=== PATIENT | male | born 1960 | race Caucasian/White ===

== ENCOUNTER 2018-01-17 07:40 | Inpatient (IN) | payer MEDICAID, OTHER ==
[~2018-01-17] VITALS: Ht 177.8 cm; Wt 87.1 kg
[~2018-01-17 07:40] MED LIST: CLOP75TA35 PO; METO25TA6 PO; NICO-631 TD; ROSU10TA PO
[2018-01-17] MEDS ORDERED: iohexol 350MG/ML 100ml bottle IV ONE (07:58)
[2018-01-17 08:02] LABS: BASOPHILS % (AUTO) 0.2 % (0-1); EOSINOPHILS % (AUTO) 0.2 % (0-6); HEMATOCRIT 33.5 % (42.0-52.0); HEMOGLOBIN 11.6 g/dl (14.0-17.9); LYMPHOCYTES # (AUTO) 1.2 X10'3 (1.1-4.8); LYMPHOCYTES % (AUTO) 10.3 % (21-51); MEAN CORPUSCULAR HEMOGLOBIN 32.4 PG (27.0-31.0); MEAN CORPUSCULAR HGB CONC 34.5 % (33.0-36.5); MEAN CORPUSCULAR VOLUME 93.9 FL (78-98); MEAN PLATELET VOLUME 7.8 FL (7.4-10.4); MONOCYTES # (AUTO) 1.1 X10'3 (0-0.9); MONOCYTES % (AUTO) 9.6 % (2-12); NEUTROPHILS # (AUTO) 9.5 X10'3 (1.8-7.7); NEUTROPHILS % (AUTO) 79.7 % (42-75); PLATELET COUNT 283 X10'3 (140-440); RED BLOOD COUNT 3.57 X10'6 (4.70-6.10); RED CELL DISTRIBUTION WIDTH 13.9 % (11.5-14.5); WHITE BLOOD COUNT 11.9 X10'3 (4.5-11.0)
[2018-01-17 08:15] LABS: ALANINE AMINOTRANSFERASE 268 U/L (12-78); ALBUMIN 3.1 G/DL (3.4-5.0); ALBUMIN/GLOBULIN RATIO 0.8 (1.1-1.5); ALKALINE PHOSPHATASE 77 IU/L (46-116); ASPARTATE AMINO TRANSFERASE 288 U/L (10-37); BILIRUBIN,TOTAL 0.6 MG/DL (0.1-1.0); BLOOD UREA NITROGEN 18 MG/DL (7-18); BUN/CREATININE RATIO 15.5 (5.4-32.0); CALCIUM 9.2 MG/DL (8.5-10.1); CREATININE 1.16 MG/DL (0.60-1.10); GLUCOSE 115 MG/DL (70-104); TOTAL CARBON DIOXIDE 23.8 MMOL/L (24-32); TOTAL PROTEIN 6.9 G/DL (6.4-8.2); eGFR 65 ML/MIN
[2018-01-17 08:19] LABS: ANION GAP 9 (8-16); CHLORIDE 100 MMOL/L (99-107); POTASSIUM 3.9 MMOL/L (3.5-5.1); SODIUM 133 MMOL/L (135-145)
[2018-01-17 08:24] LABS: INR 0.9 INR; PARTIAL THROMBOPLASTIN TIME 25 SECONDS (22-32); PROTHROMBIN TIME 9.4 SECONDS (9.0-12.0)
[2018-01-17] MEDS ORDERED: ondansetron/PF 4mg/2ml inj IV ONE (08:25)
[2018-01-17] MEDS: morphine 4 MG/ML inj SYRINge IV PRN ×2 (08:34→09:09)
[2018-01-17] MEDS ORDERED: CefTRIAXone 2gm/D5W 50ml 50 ML IV ONE (08:40)
[2018-01-17] MEDS ORDERED: NO HOME MEDS (08:41)
[2018-01-17] MEDS ORDERED: rocuronium 10mg/ml inj IV ONE (09:00)
[2018-01-17] MEDS ORDERED: heparin 1,000 units/ml 10ml inj ONE ×2 (09:00→12:05)
[2018-01-17] MEDS ORDERED: papaverine 30 mg/ml 2ml inj. ONE (09:00)
[2018-01-17] MEDS ORDERED: HYDROmorphone 1 mg/ml syringe IV ONE (09:05)
[2018-01-17] MEDS ORDERED: iohexol 350 MG/1 ML 200ml bottle ONE (09:24)
[2018-01-17] MEDS ORDERED: midazolam 2 mg/2 ml injection ONE (09:24)
[2018-01-17] MEDS ORDERED: fentaNYL/PF 50MCG/1 ML 2ML syringe ONE (09:24)
[2018-01-17] MEDS ORDERED: LIDOcaine 1% 30ml preserv. free vial ONE (09:24)
[2018-01-17] MEDS ORDERED: magnesium 1gm/100ml D5W IVPB 100 ML IV PRN ×2 (09:45→19:15)
[2018-01-17] MEDS ORDERED: magnesium Cl slow-release 64mg tablet PO PRN (09:45)
[2018-01-17] MEDS ORDERED: potassium Cl 40MEQ/NS 500ml 500 ML IV PRN ×2 (09:45)
[2018-01-17] MEDS ORDERED: potassium Cl 20 mEq SR tablet PO PRN ×2 (09:45)
[2018-01-17] MEDS ORDERED: morphine 4 MG/ML inj SYRINge IV PRN ×2 (09:45)
[2018-01-17] MEDS ORDERED: magnesium 4gm in 100ml NS 100 ML IV PRN ×2 (09:45→19:15)
[2018-01-17] MEDS ORDERED: ondansetron/PF 4mg/2ml inj IV PRN ×2 (09:45→19:15)
[2018-01-17] MEDS ORDERED: heparin 1,000unit/ml 10ml vial 10 ML ONE (10:11)
[2018-01-17] MEDS ORDERED: verapamil 2.5 mg/ml inj IV ONE (10:11)
[2018-01-17] MEDS ORDERED: nitroGLYCERIN-Tridil 50MG/D5W 250 ML IV ONE (10:11)
[2018-01-17] MEDS ORDERED: tirofiban 5mg in NS 100mL 100 ML IV ONE (10:28)
[2018-01-17] MEDS ORDERED: NORepinephrine 1 mg/ml inj IV ONE (10:52)
[2018-01-17] MEDS ORDERED: vancomycin/NS 1 GM ADD-VANTAGE 250 ML IV ONE (11:20)
[2018-01-17] MEDS ORDERED: cefazolin/dext.iso 2gm/50ml 50 ML IV ONE (11:20)
[2018-01-17 11:21] LABS: ABG BASE EXCESS -7.8 mmol/L (-2.0-3.0); ABG HCO3 15.5 mmol/L (22.0-26.0); ABG OXYGEN SATURATION 97.5 % (95-98); ABG PCO2 (T) 25.6 mmHg (35.0-48.0); ABG PH (T) 7.399 (7.350-7.450); FCOHb 0.8 % (0.5-1.5); FLOW 6 L/min; FMetHb 0.3 % (0.3-1.12); FO2Hb 96.4 % (94-100)
[2018-01-17] MEDS ORDERED: MIDAZolam 1mg/ml 10ml vial ONE (11:50)
[2018-01-17] MEDS ORDERED: SUFENTANIL CITRATE 50 MCG/ML 2ml ampule IV ONE (11:51)
[2018-01-17] MEDS ORDERED: pancuronium br 1mg/ml inj IV ONE ×2 (11:52→18:02)
[2018-01-17] MEDS ORDERED: etomidate 2mg/ml inj. ONE (11:52)
[2018-01-17] MEDS ORDERED: aminocaproic acid 250 MG/1 ML inj. ONE ×2 (12:05)
[2018-01-17] MEDS ORDERED: heparin 10,000 units/1 ML INJ ONE (12:05)
[2018-01-17] MEDS ORDERED: magnesium sulf 1 GM/2 ML ONE (12:05)
[2018-01-17] MEDS ORDERED: protamine sulf. 10mg/ml inj. IV ONE (12:05)
[2018-01-17] MEDS ORDERED: esmolol 10mg/ml inj IV ONE (12:05)
[2018-01-17] MEDS ORDERED: niCARDipine in NS 40mg/200ml (0.2mg/ml) IVPB IV ONE (12:05)
[2018-01-17] MEDS ORDERED: calcium chloride 100 MG/1 ML inj IV ONE (12:05)
[2018-01-17] MEDS ORDERED: NORepinephrine bitartrate 8 MG in NS 250 ML BAG (32 mcg/ml) IV ONE (12:05)
[2018-01-17] MEDS ORDERED: phenylephrine 10mg/ml inj. ONE ×2 (12:05→14:39)
[2018-01-17] MEDS ORDERED: dextrose 50%-water 50ml dispensing syringe IV PRN ×2 (12:05→19:15)
[2018-01-17] MEDS ORDERED: albumin (human) 25% 100 ML IV solution IV ONE (12:05)
[2018-01-17] MEDS ORDERED: sevoflurane 250ml liquid IH ONE (12:05)
[2018-01-17] MEDS ORDERED: INSULIN R 100 UNIT in NS 100ML (1 UNIT/1 ML) BAG IV ONE (12:05)
[2018-01-17] MEDS ORDERED: hydrALAZINE 20mg/ml inj. IV ONE (12:05)
[2018-01-17] MEDS ORDERED: sodium bicarbonate (8.4%) 1 mEq/ml syringe ONE (12:05)
[2018-01-17] MEDS ORDERED: potassium Cl 2 mEq/ml inj IV ONE (12:05)
[2018-01-17] MEDS ORDERED: LIDOcaine 2% (20 mg/ml) 5ml cardiac syringe ONE (12:05)
[2018-01-17 12:56] LABS: ABG BASE EXCESS -7.3 mmol/L (-2.0-3.0); ABG HCO3 19.6 mmol/L (22.0-26.0); ABG OXYGEN SATURATION 99.2 % (95-98); ABG PCO2 45.1 mmHg (35.0-45.0); ABG PH 7.256 (7.350-7.450); ABG PO2 249.8 mmHg (60.0-100.0); CL (ABG) 105 mmol/L (99-107); FCOHb 1.3 % (0.5-1.5); FMetHb 0.2 % (0.3-1.12); FO2Hb 97.7 % (94-100); GLUCOSE (ABG) 143 mg/dl (70-105); IONIZED CA (ABG) 1.14 mmol/L (1.03-1.32); K (ABG) 4.4 mmol/L (3.3-5.1); NA (ABG) 131 mmol/L (135-145); TOTAL HEMOGLOBIN 12.1 G/dl (14.0-18.0)
[2018-01-17] MEDS ORDERED: ceFAZolin 1000mg inj ONE ×3 (13:03→17:47)
[2018-01-17] MEDS ORDERED: albumin (Human) 5% 250ml 250 ML IV ONE (13:27)
[2018-01-17] MEDS ORDERED: papaverine 30 mg/ml 2ml inj. IA ONE (13:48)
[2018-01-17] MEDS ORDERED: heparin 10,000 units/1 ML INJ IR ONE (13:50)
[2018-01-17] MEDS ORDERED: fentaNYL /PF 50mcg/ml 5ml ampule ONE (14:36)
[2018-01-17 14:41] LABS: ABG BASE EXCESS VENOUS -5.2 mmol/L; ABG PCO2 VENOUS 50.3 mmHg; ABG PO2 VENOUS 41.1 mmHg; CL (ABG) 106 mmol/L (99-107); FCOHb VENOUS 1.8 %; FHHb VENOUS 29.5 %; FMetHb VENOUS 0.2 %; FO2Hb VENOUS 68.5 %; GLUCOSE (ABG) 155 mg/dl (70-105); IONIZED CA (ABG) 1.12 mmol/L (1.03-1.32); K (ABG) 4.9 mmol/L (3.3-5.1); NA (ABG) 132 mmol/L (135-145); TOTAL HEMOGLOBIN 11.8 G/dl (14.0-18.0)
[2018-01-17] MEDS ORDERED: esmolol inj. 10 ML IV ONE (15:00)
[2018-01-17 15:16] LABS: ABG BASE EXCESS -2.9 mmol/L (-2.0-3.0); ABG HCO3 23.1 mmol/L (22.0-26.0); ABG OXYGEN SATURATION 99.6 % (95-98); ABG PCO2 46.3 mmHg (35.0-45.0); ABG PH 7.316 (7.350-7.450); ABG PO2 355.9 mmHg (60.0-100.0); CL (ABG) 105 mmol/L (99-107); FCOHb 1.9 % (0.5-1.5); FMetHb 0.4 % (0.3-1.12); FO2Hb 97.3 % (94-100); GLUCOSE (ABG) 131 mg/dl (70-105); IONIZED CA (ABG) 1.01 mmol/L (1.03-1.32); K (ABG) 5.7 mmol/L (3.3-5.1); NA (ABG) 128 mmol/L (135-145); TOTAL HEMOGLOBIN 8.1 G/dl (14.0-18.0)
[2018-01-17 15:31] LABS: ABG BASE EXCESS VENOUS -1.8 mmol/L; ABG HCO3 VENOUS 24.8 mmol/L; ABG PCO2 VENOUS 52.5 mmHg; CL (ABG) 104 mmol/L (99-107); FCOHb VENOUS 1.7 %; FHHb VENOUS 15.1 %; FMetHb VENOUS 0.3 %; FO2Hb VENOUS 82.9 %; GLUCOSE (ABG) 131 mg/dl (70-105); IONIZED CA (ABG) 1.01 mmol/L (1.03-1.32); K (ABG) 5.9 mmol/L (3.3-5.1); NA (ABG) 131 mmol/L (135-145)
[2018-01-17 15:50] LABS: ABG BASE EXCESS -4.6 mmol/L (-2.0-3.0); ABG HCO3 22.4 mmol/L (22.0-26.0); ABG OXYGEN SATURATION 99.4 % (95-98); ABG PCO2 50.3 mmHg (35.0-45.0); ABG PH 7.266 (7.350-7.450); ABG PO2 295.3 mmHg (60.0-100.0); CL (ABG) 103 mmol/L (99-107); FCOHb 1.3 % (0.5-1.5); FMetHb 0.2 % (0.3-1.12); FO2Hb 97.9 % (94-100); GLUCOSE (ABG) 171 mg/dl (70-105); IONIZED CA (ABG) 1.01 mmol/L (1.03-1.32); K (ABG) 5.6 mmol/L (3.3-5.1); NA (ABG) 130 mmol/L (135-145); TOTAL HEMOGLOBIN 9.3 G/dl (14.0-18.0)
[2018-01-17 15:56] LABS: ABG BASE EXCESS -1.8 mmol/L (-2.0-3.0); ABG HCO3 23.9 mmol/L (22.0-26.0); ABG OXYGEN SATURATION 99.3 % (95-98); ABG PCO2 44.5 mmHg (35.0-45.0); ABG PH 7.347 (7.350-7.450); ABG PO2 274.5 mmHg (60.0-100.0); CL (ABG) 101 mmol/L (99-107); FCOHb 1.2 % (0.5-1.5); FMetHb 0.3 % (0.3-1.12); FO2Hb 97.8 % (94-100); GLUCOSE (ABG) 186 mg/dl (70-105); IONIZED CA (ABG) 0.99 mmol/L (1.03-1.32); K (ABG) 5.2 mmol/L (3.3-5.1); NA (ABG) 133 mmol/L (135-145); TOTAL HEMOGLOBIN 9.8 G/dl (14.0-18.0)
[2018-01-17 16:00] LABS: ABG BASE EXCESS 2.9 mmol/L (-2.0-3.0); ABG HCO3 27.6 mmol/L (22.0-26.0); ABG OXYGEN SATURATION 99.3 % (95-98); ABG PCO2 43.3 mmHg (35.0-45.0); ABG PH 7.423 (7.350-7.450); ABG PO2 256.6 mmHg (60.0-100.0); CL (ABG) 100 mmol/L (99-107); FCOHb 1.5 % (0.5-1.5); FMetHb 0.1 % (0.3-1.12); FO2Hb 97.7 % (94-100); GLUCOSE (ABG) 186 mg/dl (70-105); IONIZED CA (ABG) 0.94 mmol/L (1.03-1.32); NA (ABG) 135 mmol/L (135-145); TOTAL HEMOGLOBIN 9.3 G/dl (14.0-18.0)
[2018-01-17 16:15] LABS: ABG BASE EXCESS 0.4 mmol/L (-2.0-3.0); ABG OXYGEN SATURATION 99.4 % (95-98); ABG PCO2 40.1 mmHg (35.0-45.0); ABG PH 7.413 (7.350-7.450); ABG PO2 317.7 mmHg (60.0-100.0); CL (ABG) 102 mmol/L (99-107); FCOHb 1.5 % (0.5-1.5); FMetHb 0.2 % (0.3-1.12); FO2Hb 97.7 % (94-100); GLUCOSE (ABG) 181 mg/dl (70-105); IONIZED CA (ABG) 0.94 mmol/L (1.03-1.32); K (ABG) 5.4 mmol/L (3.3-5.1); NA (ABG) 132 mmol/L (135-145); TOTAL HEMOGLOBIN 9.2 G/dl (14.0-18.0)
[2018-01-17 16:35] LABS: ABG BASE EXCESS -1.6 mmol/L (-2.0-3.0); ABG HCO3 23.2 mmol/L (22.0-26.0); ABG OXYGEN SATURATION 99.4 % (95-98); ABG PCO2 39.2 mmHg (35.0-45.0); ABG PO2 276.5 mmHg (60.0-100.0); CL (ABG) 102 mmol/L (99-107); FCOHb 1.5 % (0.5-1.5); FMetHb 0.2 % (0.3-1.12); FO2Hb 97.7 % (94-100); GLUCOSE (ABG) 183 mg/dl (70-105); IONIZED CA (ABG) 0.99 mmol/L (1.03-1.32); K (ABG) 5.6 mmol/L (3.3-5.1); NA (ABG) 132 mmol/L (135-145); TOTAL HEMOGLOBIN 9.6 G/dl (14.0-18.0)
[2018-01-17 17:10] LABS: ABG BASE EXCESS -2.4 mmol/L (-2.0-3.0); ABG HCO3 22.4 mmol/L (22.0-26.0); ABG OXYGEN SATURATION 99.2 % (95-98); ABG PH 7.378 (7.350-7.450); ABG PO2 242.5 mmHg (60.0-100.0); CL (ABG) 103 mmol/L (99-107); FCOHb 1.5 % (0.5-1.5); FMetHb 0.4 % (0.3-1.12); FO2Hb 97.3 % (94-100); GLUCOSE (ABG) 156 mg/dl (70-105); IONIZED CA (ABG) 1.03 mmol/L (1.03-1.32); K (ABG) 5.3 mmol/L (3.3-5.1); NA (ABG) 133 mmol/L (135-145); TOTAL HEMOGLOBIN 9.6 G/dl (14.0-18.0)
[2018-01-17 17:35] LABS: ABG HCO3 21.1 mmol/L (22.0-26.0); ABG OXYGEN SATURATION 98.5 % (95-98); ABG PCO2 43.4 mmHg (35.0-45.0); ABG PH 7.304 (7.350-7.450); ABG PO2 146.3 mmHg (60.0-100.0); CL (ABG) 103 mmol/L (99-107); FCOHb 1.7 % (0.5-1.5); FMetHb 0.3 % (0.3-1.12); FO2Hb 96.5 % (94-100); GLUCOSE (ABG) 123 mg/dl (70-105); K (ABG) 4.7 mmol/L (3.3-5.1); NA (ABG) 133 mmol/L (135-145); TOTAL HEMOGLOBIN 8.5 G/dl (14.0-18.0)
[2018-01-17 17:50] LABS: ABG BASE EXCESS VENOUS -1.6 mmol/L; ABG HCO3 VENOUS 24.7 mmol/L; ABG PCO2 VENOUS 49.8 mmHg; ABG PO2 VENOUS 37.7 mmHg; CL (ABG) 105 mmol/L (99-107); FCOHb VENOUS 2.1 %; FHHb VENOUS 33.9 %; FMetHb VENOUS 0.4 %; FO2Hb VENOUS 63.6 %; GLUCOSE (ABG) 108 mg/dl (70-105); IONIZED CA (ABG) 1.53 mmol/L (1.03-1.32); K (ABG) 4.2 mmol/L (3.3-5.1); NA (ABG) 135 mmol/L (135-145)
[2018-01-17] MEDS: insulin Lispro (HumaLOG) vial - multi-dose SQ SCH ×2 (18:00→18:15)
[2018-01-17] MEDS ORDERED: sodium bicarbonate 1 MEQ/1 ml inj ONE (18:09)
[2018-01-17] MEDS: insulin regular, human 100 UNIT in normal saline 100ml IV soln 99 ML IV SCH ×2 (18:15)
[2018-01-17 18:21] LABS: ABG BASE EXCESS VENOUS 5.4 mmol/L; ABG HCO3 VENOUS 33.3 mmol/L; ABG PCO2 VENOUS 70.3 mmHg; ABG PO2 VENOUS 40.7 mmHg; CL (ABG) 103 mmol/L (99-107); FCOHb VENOUS 1.3 %; FMetHb VENOUS 0.4 %; FO2Hb VENOUS 63.3 %; GLUCOSE (ABG) 75 mg/dl (70-105); IONIZED CA (ABG) 1.11 mmol/L (1.03-1.32); K (ABG) 3.8 mmol/L (3.3-5.1); NA (ABG) 145 mmol/L (135-145); TOTAL HEMOGLOBIN 9.4 G/dl (14.0-18.0)
[2018-01-17] MEDS ORDERED: niCARDipine/sod cl 20mg/200ml 200 ML IV PRN (19:13)
[2018-01-17] MEDS ORDERED: nitroGLYCERIN-Tridil 50MG/D5W 250 ML IV PRN (19:13)
[2018-01-17] MEDS ORDERED: sodium phosphate inj. 30 MMOL in dextrose 5%-water 250 ML IV PRN (19:15)
[2018-01-17] MEDS ORDERED: metoclopramide 5 mg/ml inj IV PRN (19:15)
[2018-01-17] MEDS ORDERED: magnesium hydroxide 30ml (MOM) UD suspension PO PRN (19:15)
[2018-01-17] MEDS ORDERED: insulin regular, human inj. 100 UNITS in normal saline 100ml IV soln 100 ML IV SCH ×2 (19:15)
[2018-01-17] MEDS ORDERED: sodium phosphate inj. 15 MMOL in dextrose 5%-water 150 ML IV PRN (19:15)
[2018-01-17] MEDS ORDERED: Neutra Phos packet PO PRN (19:15)
[2018-01-17] MEDS ORDERED: normal saline 250ml IV soln 250 ML IV PRN (19:15)
[2018-01-17] MEDS ORDERED: potassium Cl 20mEq/100mL bag 100 ML IV PRN ×3 (19:15)
[2018-01-17 19:30] VITALS: BP 105/45
[2018-01-17 19:30] LABS: BASOPHILS % (AUTO) 0 % (0-1); EOSINOPHILS % (AUTO) 0 % (0-6); HEMATOCRIT 31.6 % (42.0-52.0); HEMOGLOBIN 10.7 g/dl (14.0-17.9); LYMPHOCYTES # (AUTO) 0.8 X10'3 (1.1-4.8); LYMPHOCYTES % (AUTO) 7.2 % (21-51); MEAN CORPUSCULAR HGB CONC 33.8 % (33.0-36.5); MEAN CORPUSCULAR VOLUME 94.7 FL (78-98); MEAN PLATELET VOLUME 7.7 FL (7.4-10.4); MONOCYTES # (AUTO) 0.6 X10'3 (0-0.9); MONOCYTES % (AUTO) 5.6 % (2-12); NEUTROPHILS # (AUTO) 9.4 X10'3 (1.8-7.7); NEUTROPHILS % (AUTO) 87.2 % (42-75); PLATELET COUNT 153 X10'3 (140-440); RED BLOOD COUNT 3.34 X10'6 (4.70-6.10); RED CELL DISTRIBUTION WIDTH 14.7 % (11.5-14.5); WHITE BLOOD COUNT 10.8 X10'3 (4.5-11.0)
[2018-01-17 19:40] VITALS: BP 92/60
[2018-01-17 19:41] LABS: ABG BASE EXCESS -1.3 mmol/L (-2.0-3.0); ABG HCO3 25.4 mmol/L (22.0-26.0); ABG OXYGEN SATURATION 93.2 % (95-98); ABG PCO2 (T) 49.9 mmHg (35.0-48.0); ABG PH (T) 7.321 (7.350-7.450); ABG PO2 (T) 75.6 mmHg (83-108); FCOHb 0.1 % (0.5-1.5); FMetHb 0.1 % (0.3-1.12); MINUTE VOLUME 10 L/min; PATIENT TEMPERATURE 36.3; PEEP 5 cm H2O; RESPIRATORY RATE 14 b/min; RESPIRATORY RATE (OBSERVED) 14 b/min; TIDAL VOLUME 650 mL; TOTAL HEMOGLOBIN 11.3 G/dl (14.0-18.0)
[2018-01-17 19:43] LABS: INR 1.2 INR; PARTIAL THROMBOPLASTIN TIME 33 SECONDS (22-32); PROTHROMBIN TIME 11.9 SECONDS (9.0-12.0)
[2018-01-17 19:46] LABS: ALANINE AMINOTRANSFERASE 234 U/L (12-78); ALBUMIN 2.9 G/DL (3.4-5.0); ALBUMIN/GLOBULIN RATIO 1.2 (1.1-1.5); ALKALINE PHOSPHATASE 56 IU/L (46-116); ANION GAP 8 (8-16); ASPARTATE AMINO TRANSFERASE 366 U/L (10-37); BILIRUBIN,TOTAL 1.2 MG/DL (0.1-1.0); BLOOD UREA NITROGEN 19 MG/DL (7-18); BUN/CREATININE RATIO 12.3 (5.4-32.0); CALCIUM 8.4 MG/DL (8.5-10.1); CHLORIDE 107 MMOL/L (99-107); CREATININE 1.55 MG/DL (0.60-1.10); MAGNESIUM 3.8 MG/DL (1.5-2.4); PHOSPHORUS 3.2 MG/DL (2.3-4.5); POTASSIUM 3.5 MMOL/L (3.5-5.1); SODIUM 143 MMOL/L (135-145); TOTAL CARBON DIOXIDE 27.6 MMOL/L (24-32); TOTAL PROTEIN 5.4 G/DL (6.4-8.2); eGFR 46 ML/MIN
[2018-01-17] MEDS: albumin (Human) 5% 250ml 250 ML IV PRN ×2 (19:47→21:30)
[2018-01-17] MEDS: sodium chloride 0.45% 1,000 ML IV SCH (19:47)
[2018-01-17 19:49] LABS: GLUCOSE 46 MG/DL (70-104)
[2018-01-17 19:50] VITALS: BP 105/50
[2018-01-17] MEDS ORDERED: propofol 1000mg/100ml bottle 100 ML IV ONE (19:53)
[2018-01-17 20:00] VITALS: BP 99/45
[2018-01-17] MEDS: docusate sod 100mg capsule PO SCH (20:00)
[2018-01-17] MEDS: mupirocin 2% nasal ointment 1gm UD NS SCH (20:00)
[2018-01-17 20:51] LABS: ABG BASE EXCESS -3.1 mmol/L (-2.0-3.0); ABG HCO3 23.2 mmol/L (22.0-26.0); ABG OXYGEN SATURATION 93.1 % (95-98); ABG PCO2 (T) 47.2 mmHg (35.0-48.0); ABG PO2 (T) 77.4 mmHg (83-108); FMetHb 0.3 % (0.3-1.12); FO2Hb 92.8 % (94-100); MINUTE VOLUME 10 L/min; PEEP 5 cm H2O; RESPIRATORY RATE 14 b/min; RESPIRATORY RATE (OBSERVED) 14 b/min; TIDAL VOLUME 650 mL; TOTAL HEMOGLOBIN 10.9 G/dl (14.0-18.0)
[2018-01-17] MEDS: vancomycin/NS 1 GM ADD-VANTAGE 250 ML IV SCH (21:09)
[2018-01-17 22:00] VITALS: BP 99/44
[2018-01-17 23:00] VITALS: BP 110/68
[2018-01-17] MEDS ORDERED: DOPamine 400mg/D5W 250ml 250 ML IV PRN (23:29)
[2018-01-17] MEDS: amiodarone/D5 360MG/200ML BAG 200 ML IV SCH (23:47)
[2018-01-17] MEDS: ceFAZolin 1GM/D5W- ADD-VANTAGE 50 ML IV SCH (23:47)
[2018-01-18] VITALS (30 sets, daily range): BP systolic 60–132; BP diastolic 34–82
[2018-01-18] MEDS: morphine 4 MG/ML inj SYRINge IV PRN ×7 (01:09→22:26)
[2018-01-18] MEDS: insulin regular, human 100 UNIT in normal saline 100ml IV soln 99 ML IV SCH ×4 (01:28→18:27)
[2018-01-18 02:44] LABS: BASOPHILS % (AUTO) 0 % (0-1); EOSINOPHILS % (AUTO) 0 % (0-6); HEMOGLOBIN 10.9 g/dl (14.0-17.9); LYMPHOCYTES # (AUTO) 0.8 X10'3 (1.1-4.8); LYMPHOCYTES % (AUTO) 7.3 % (21-51); MEAN CORPUSCULAR HEMOGLOBIN 31.8 PG (27.0-31.0); MEAN CORPUSCULAR VOLUME 96.1 FL (78-98); MEAN PLATELET VOLUME 8.7 FL (7.4-10.4); MONOCYTES # (AUTO) 0.4 X10'3 (0-0.9); MONOCYTES % (AUTO) 4.2 % (2-12); NEUTROPHILS # (AUTO) 9.2 X10'3 (1.8-7.7); NEUTROPHILS % (AUTO) 88.5 % (42-75); PLATELET COUNT 141 X10'3 (140-440); RED BLOOD COUNT 3.43 X10'6 (4.70-6.10); RED CELL DISTRIBUTION WIDTH 14.4 % (11.5-14.5); WHITE BLOOD COUNT 10.4 X10'3 (4.5-11.0)
[2018-01-18 02:56] LABS: INR 1.2 INR; PARTIAL THROMBOPLASTIN TIME 33 SECONDS (22-32); PROTHROMBIN TIME 12.8 SECONDS (9.0-12.0)
[2018-01-18 03:04] LABS: ALANINE AMINOTRANSFERASE 399 U/L (12-78); ALBUMIN 3.2 G/DL (3.4-5.0); ALBUMIN/GLOBULIN RATIO 1.6 (1.1-1.5); ALKALINE PHOSPHATASE 45 IU/L (46-116); ANION GAP 12 (8-16); ASPARTATE AMINO TRANSFERASE 705 U/L (10-37); BILIRUBIN,TOTAL 1.7 MG/DL (0.1-1.0); BLOOD UREA NITROGEN 27 MG/DL (7-18); BUN/CREATININE RATIO 14.4 (5.4-32.0); CALCIUM 7.3 MG/DL (8.5-10.1); CHLORIDE 108 MMOL/L (99-107); CREATININE 1.88 MG/DL (0.60-1.10); GLUCOSE 151 MG/DL (70-104); MAGNESIUM 2.9 MG/DL (1.5-2.4); PHOSPHORUS 4.7 MG/DL (2.3-4.5); POTASSIUM 5.5 MMOL/L (3.5-5.1); SODIUM 142 MMOL/L (135-145); TOTAL CARBON DIOXIDE 22.2 MMOL/L (24-32); TOTAL PROTEIN 5.2 G/DL (6.4-8.2); eGFR 37 ML/MIN
[2018-01-18 03:25] LABS: ABG BASE EXCESS -5.6 mmol/L (-2.0-3.0); ABG HCO3 20.3 mmol/L (22.0-26.0); ABG PCO2 (T) 41.6 mmHg (35.0-48.0); ABG PH (T) 7.308 (7.350-7.450); ABG PO2 (T) 71.6 mmHg (83-108); FCOHb 0.3 % (0.5-1.5); FMetHb 0.2 % (0.3-1.12); FO2Hb 91.5 % (94-100); PATIENT TEMPERATURE 37.2; PEEP 5 cm H2O; RESPIRATORY RATE 14 b/min; TIDAL VOLUME 650 mL; TOTAL HEMOGLOBIN 12.6 G/dl (14.0-18.0)
[2018-01-18] MEDS: albumin (Human) 5% 250ml 250 ML IV PRN ×3 (03:31→18:13)
[2018-01-18] MEDS: NORepinephrine 8mg/ 250ml NS 250 ML IV PRN ×2 (03:54→17:00)
[2018-01-18 05:27] LABS: ACT @ 1.70 U 281 SEC (193-297); ACT @ 2.84 U 379 SEC (260-420); BASELINE ACT 153 SEC (101-148); PATIENT WEIGHT 80.0k KG
[2018-01-18 05:27] LABS: ACTIVATED CLOTTING TIME 131 SEC (101-148)
[2018-01-18 05:30] LABS: ABG BASE EXCESS -2.8 mmol/L (-2.0-3.0); ABG HCO3 23.5 mmol/L (22.0-26.0); ABG OXYGEN SATURATION 99.6 % (95-98); ABG PH 7.307 (7.350-7.450); CL (ABG) 104 mmol/L (99-107); FCOHb 1.7 % (0.5-1.5); FMetHb 0.3 % (0.3-1.12); FO2Hb 97.6 % (94-100); GLUCOSE (ABG) 133 mg/dl (70-105); K (ABG) 5.9 mmol/L (3.3-5.1); NA (ABG) 129 mmol/L (135-145); TOTAL HEMOGLOBIN 8.1 G/dl (14.0-18.0)
[2018-01-18] MEDS ORDERED: pantoprazole 40mg Tablet.DR PO SCH (07:30)
[2018-01-18] MEDS: metoprolol tartrate 12.5mg (1/2 tablet) PO SCH ×2 (08:00→20:00)
[2018-01-18] MEDS: docusate sod 100mg capsule PO SCH (08:00)
[2018-01-18] MEDS ORDERED: K and/or MAG REPLACEMENT MC SCH (08:00)
[2018-01-18] MEDS: amiodarone/D5 360MG/200ML BAG 200 ML IV SCH ×2 (08:54→19:42)
[2018-01-18] MEDS: ceFAZolin 1GM/D5W- ADD-VANTAGE 50 ML IV SCH ×3 (08:58→23:51)
[2018-01-18] MEDS: atorvastatin 10mg tablet PO SCH (08:58)
[2018-01-18] MEDS: mupirocin 2% nasal ointment 1gm UD NS SCH ×2 (08:59→19:42)
[2018-01-18] MEDS: aspirin 325mg tablet, delayed-release (Ecotrin) PO SCH (08:59)
[2018-01-18] MEDS: vancomycin/NS 1 GM ADD-VANTAGE 250 ML IV SCH ×2 (08:59→19:59)
[2018-01-18] MEDS: DOBUTamine-DoBUTrex 500mg/D5W 250 ML IV SCH ×2 (09:00→19:42)
[2018-01-18] MEDS: insulin Lispro (HumaLOG) vial - multi-dose SQ SCH ×3 (09:00→17:11)
[2018-01-18] MEDS: pantoprazole 40 MG vial IV SCH (10:06)
[2018-01-18 10:35] LABS: ABG BASE EXCESS -10.4 mmol/L (-2.0-3.0); ABG HCO3 14.9 mmol/L (22.0-26.0); ABG OXYGEN SATURATION 92.5 % (95-98); ABG PCO2 (T) 32.2 mmHg (35.0-48.0); ABG PH (T) 7.287 (7.350-7.450); ABG PO2 (T) 79.7 mmHg (83-108); FCOHb 0.3 % (0.5-1.5); FMetHb 0.3 % (0.3-1.12); FO2Hb 91.9 % (94-100); MINUTE VOLUME 11 L/min; PATIENT TEMPERATURE 37.5; PEEP 5 cm H2O; RESPIRATORY RATE 14 b/min; RESPIRATORY RATE (OBSERVED) 16 b/min; TIDAL VOLUME 650 mL; TOTAL HEMOGLOBIN 12.1 G/dl (14.0-18.0)
[2018-01-18] MEDS ORDERED: sodium bicarbonate (8.4%) 1 mEq/ml syringe IV ONE ×2 (10:40→12:55)
[2018-01-18] MEDS ORDERED: sodium bicarbonate (8.4%) 1 mEq/ml syringe ONE (10:40)
[2018-01-18 12:15] LABS: ABG BASE EXCESS -7.1 mmol/L (-2.0-3.0); ABG HCO3 18.2 mmol/L (22.0-26.0); ABG OXYGEN SATURATION 94.3 % (95-98); ABG PCO2 (T) 37.4 mmHg (35.0-48.0); ABG PH (T) 7.309 (7.350-7.450); ABG PO2 (T) 88.1 mmHg (83-108); FCOHb 0.3 % (0.5-1.5); FMetHb 0.4 % (0.3-1.12); FO2Hb 93.6 % (94-100); MINUTE VOLUME 10 L/min; PATIENT TEMPERATURE 37.9; PEEP 5 cm H2O; RESPIRATORY RATE 14 b/min; RESPIRATORY RATE (OBSERVED) 16 b/min; TIDAL VOLUME 600 mL; TOTAL HEMOGLOBIN 11.4 G/dl (14.0-18.0)
[2018-01-18 12:36] LABS: BASOPHILS % (AUTO) 0.1 % (0-1); EOSINOPHILS % (AUTO) 0 % (0-6); HEMATOCRIT 31.7 % (42.0-52.0); HEMOGLOBIN 10.5 g/dl (14.0-17.9); LYMPHOCYTES # (AUTO) 0.9 X10'3 (1.1-4.8); LYMPHOCYTES % (AUTO) 7.9 % (21-51); MEAN CORPUSCULAR HEMOGLOBIN 31.7 PG (27.0-31.0); MEAN CORPUSCULAR HGB CONC 33.1 % (33.0-36.5); MEAN CORPUSCULAR VOLUME 95.7 FL (78-98); MEAN PLATELET VOLUME 9.2 FL (7.4-10.4); MONOCYTES # (AUTO) 1.2 X10'3 (0-0.9); NEUTROPHILS # (AUTO) 9.5 X10'3 (1.8-7.7); PLATELET COUNT 121 X10'3 (140-440); RED BLOOD COUNT 3.32 X10'6 (4.70-6.10); RED CELL DISTRIBUTION WIDTH 14.6 % (11.5-14.5); WHITE BLOOD COUNT 11.6 X10'3 (4.5-11.0)
[2018-01-18 12:59] LABS: ALBUMIN 3.1 G/DL (3.4-5.0); ALBUMIN/GLOBULIN RATIO 1.6 (1.1-1.5); ALKALINE PHOSPHATASE 49 IU/L (46-116); ANION GAP 17 (8-16); BILIRUBIN,TOTAL 2.2 MG/DL (0.1-1.0); BLOOD UREA NITROGEN 40 MG/DL (7-18); BUN/CREATININE RATIO 14.5 (5.4-32.0); CALCIUM 6.8 MG/DL (8.5-10.1); CHLORIDE 108 MMOL/L (99-107); CREATININE 2.75 MG/DL (0.60-1.10); GLUCOSE 132 MG/DL (70-104); MAGNESIUM 2.9 MG/DL (1.5-2.4); PHOSPHORUS 7.5 MG/DL (2.3-4.5); SODIUM 145 MMOL/L (135-145); TOTAL CARBON DIOXIDE 19.6 MMOL/L (24-32); TOTAL PROTEIN 5.1 G/DL (6.4-8.2); eGFR 24 ML/MIN
[2018-01-18 13:02] LABS: ALANINE AMINOTRANSFERASE 1594 U/L (12-78)
[2018-01-18 13:04] LABS: POTASSIUM 6.1 MMOL/L (3.5-5.1)
[2018-01-18 13:18] LABS: ASPARTATE AMINO TRANSFERASE 3482 U/L (10-37)
[2018-01-18] MEDS: propofol 1000mg/100ml bottle 100 ML IV PRN ×2 (13:34→21:50)
[2018-01-18] MEDS ORDERED: rocuronium 10mg/ml inj IV ONE (14:45)
[2018-01-18] MEDS ORDERED: Duosol 4k/NO Calcium 5,000 ML HE SCH (14:52)
[2018-01-18] MEDS ORDERED: sodium phosphate inj. 30 MMOL in normal saline 250ml IV soln 250 ML IV PRN (14:55)
[2018-01-18] MEDS ORDERED: citrate dextrose 1000ml IV sol 1,000 ML IV PRN (14:55)
[2018-01-18] MEDS ORDERED: potassium Cl 20mEq/100mL bag 100 ML IV PRN (14:55)
[2018-01-18] MEDS ORDERED: magnesium 4gm in 100ml NS 100 ML IV PRN (14:55)
[2018-01-18] MEDS ORDERED: calcium chloride inj. 10,000 MG in normal saline 500ml IV soln 400 ML IV PRN (14:55)
[2018-01-18] MEDS: Duosol 4K/3 Ca (w/calcium) 5,000 ML HE SCH ×4 (16:19→23:50)
[2018-01-18] MEDS: DOPamine 400mg/D5W 250ml 250 ML IV PRN (16:51)
[2018-01-18 17:00] LABS: BASOPHILS % (AUTO) 0.2 % (0-1); EOSINOPHILS % (AUTO) 0 % (0-6); HEMOGLOBIN 10.8 g/dl (14.0-17.9); LYMPHOCYTES # (AUTO) 0.7 X10'3 (1.1-4.8); LYMPHOCYTES % (AUTO) 6.4 % (21-51); MEAN CORPUSCULAR HEMOGLOBIN 31.5 PG (27.0-31.0); MEAN CORPUSCULAR HGB CONC 33.8 % (33.0-36.5); MEAN CORPUSCULAR VOLUME 93.1 FL (78-98); MEAN PLATELET VOLUME 9.2 FL (7.4-10.4); MONOCYTES # (AUTO) 0.8 X10'3 (0-0.9); MONOCYTES % (AUTO) 7.6 % (2-12); NEUTROPHILS # (AUTO) 9.5 X10'3 (1.8-7.7); NEUTROPHILS % (AUTO) 85.8 % (42-75); PLATELET COUNT 111 X10'3 (140-440); RED BLOOD COUNT 3.44 X10'6 (4.70-6.10); RED CELL DISTRIBUTION WIDTH 15.3 % (11.5-14.5)
[2018-01-18 17:13] LABS: ANION GAP 17 (8-16); BLOOD UREA NITROGEN 47 MG/DL (7-18); BUN/CREATININE RATIO 14.5 (5.4-32.0); CHLORIDE 107 MMOL/L (99-107); CREATININE 3.24 MG/DL (0.60-1.10); GLUCOSE 146 MG/DL (70-104); PHOSPHORUS 8.7 MG/DL (2.3-4.5); POTASSIUM 5.2 MMOL/L (3.5-5.1); SODIUM 147 MMOL/L (135-145); TOTAL CARBON DIOXIDE 23.1 MMOL/L (24-32); eGFR 20 ML/MIN
[2018-01-18] MEDS: calcium chloride inj. 1,000 MG in normal saline 100ml IV soln 100 ML IV PRN (18:20)
[2018-01-18 19:18] LABS: BASOPHILS % (AUTO) 0 % (0-1); EOSINOPHILS % (AUTO) 0 % (0-6); HEMATOCRIT 31.7 % (42.0-52.0); HEMOGLOBIN 10.7 g/dl (14.0-17.9); LYMPHOCYTES # (AUTO) 0.5 X10'3 (1.1-4.8); MEAN CORPUSCULAR HEMOGLOBIN 31.4 PG (27.0-31.0); MEAN CORPUSCULAR HGB CONC 33.7 % (33.0-36.5); MEAN CORPUSCULAR VOLUME 93.2 FL (78-98); MEAN PLATELET VOLUME 9.8 FL (7.4-10.4); MONOCYTES # (AUTO) 0.7 X10'3 (0-0.9); MONOCYTES % (AUTO) 6.2 % (2-12); NEUTROPHILS # (AUTO) 9.6 X10'3 (1.8-7.7); NEUTROPHILS % (AUTO) 88.8 % (42-75); PLATELET COUNT 109 X10'3 (140-440); RED CELL DISTRIBUTION WIDTH 15.4 % (11.5-14.5); WHITE BLOOD COUNT 10.8 X10'3 (4.5-11.0)
[2018-01-18 19:30] LABS: ALBUMIN 3.1 G/DL (3.4-5.0); ANION GAP 14 (8-16); BLOOD UREA NITROGEN 45 MG/DL (7-18); BUN/CREATININE RATIO 14.4 (5.4-32.0); CHLORIDE 107 MMOL/L (99-107); CREATININE 3.12 MG/DL (0.60-1.10); GLUCOSE 143 MG/DL (70-104); MAGNESIUM 2.6 MG/DL (1.5-2.4); PHOSPHORUS 7.5 MG/DL (2.3-4.5); POTASSIUM 4.9 MMOL/L (3.5-5.1); SODIUM 145 MMOL/L (135-145); TOTAL CARBON DIOXIDE 23.7 MMOL/L (24-32); eGFR 21 ML/MIN
[2018-01-18] MEDS: docusate sodium 100mg/10ml UD cup PO SCH (20:07)
[2018-01-18] MEDS: BICARB DIALYSIS W/CALCIUM SOL 5,000 ML HE SCH ×2 (22:00→23:40)
[2018-01-18 22:09] LABS: BASOPHILS % (AUTO) 0.1 % (0-1); EOSINOPHILS % (AUTO) 0 % (0-6); HEMATOCRIT 32.3 % (42.0-52.0); HEMOGLOBIN 10.8 g/dl (14.0-17.9); LYMPHOCYTES # (AUTO) 0.6 X10'3 (1.1-4.8); LYMPHOCYTES % (AUTO) 5.5 % (21-51); MEAN CORPUSCULAR HEMOGLOBIN 31.5 PG (27.0-31.0); MEAN CORPUSCULAR HGB CONC 33.5 % (33.0-36.5); MEAN CORPUSCULAR VOLUME 94.1 FL (78-98); MEAN PLATELET VOLUME 9.2 FL (7.4-10.4); MONOCYTES # (AUTO) 0.9 X10'3 (0-0.9); MONOCYTES % (AUTO) 7.4 % (2-12); NEUTROPHILS # (AUTO) 10.1 X10'3 (1.8-7.7); PLATELET COUNT 95 X10'3 (140-440); RED BLOOD COUNT 3.43 X10'6 (4.70-6.10); RED CELL DISTRIBUTION WIDTH 15.7 % (11.5-14.5); WHITE BLOOD COUNT 11.7 X10'3 (4.5-11.0)
[2018-01-18 22:19] LABS: ALBUMIN 3.3 G/DL (3.4-5.0); ANION GAP 13 (8-16); BLOOD UREA NITROGEN 44 MG/DL (7-18); BUN/CREATININE RATIO 15.4 (5.4-32.0); CHLORIDE 107 MMOL/L (99-107); CREATININE 2.85 MG/DL (0.60-1.10); GLUCOSE 137 MG/DL (70-104); MAGNESIUM 2.6 MG/DL (1.5-2.4); PHOSPHORUS 7.1 MG/DL (2.3-4.5); SODIUM 145 MMOL/L (135-145); TOTAL CARBON DIOXIDE 25.3 MMOL/L (24-32); eGFR 23 ML/MIN
[2018-01-19] VITALS (24 sets, daily range): BP systolic 67–125; BP diastolic 40–62
[2018-01-19] MEDS: BICARB DIALYSIS W/CALCIUM SOL 5,000 ML HE SCH ×13 (01:20→22:23)
[2018-01-19] MEDS: NORepinephrine 8mg/ 250ml NS 250 ML IV PRN ×3 (02:02→21:23)
[2018-01-19 02:26] LABS: BASOPHILS % (AUTO) 0.2 % (0-1); EOSINOPHILS % (AUTO) 0.1 % (0-6); HEMATOCRIT 31.6 % (42.0-52.0); HEMOGLOBIN 10.6 g/dl (14.0-17.9); LYMPHOCYTES # (AUTO) 0.6 X10'3 (1.1-4.8); LYMPHOCYTES % (AUTO) 5.5 % (21-51); MEAN CORPUSCULAR HEMOGLOBIN 31.4 PG (27.0-31.0); MEAN CORPUSCULAR HGB CONC 33.6 % (33.0-36.5); MEAN CORPUSCULAR VOLUME 93.6 FL (78-98); MEAN PLATELET VOLUME 9.2 FL (7.4-10.4); MONOCYTES # (AUTO) 0.8 X10'3 (0-0.9); MONOCYTES % (AUTO) 6.6 % (2-12); NEUTROPHILS # (AUTO) 10.2 X10'3 (1.8-7.7); NEUTROPHILS % (AUTO) 87.6 % (42-75); PLATELET COUNT 66 X10'3 (140-440); RED BLOOD COUNT 3.37 X10'6 (4.70-6.10); RED CELL DISTRIBUTION WIDTH 15.6 % (11.5-14.5); WHITE BLOOD COUNT 11.7 X10'3 (4.5-11.0)
[2018-01-19] MEDS: Duosol 4K/3 Ca (w/calcium) 5,000 ML HE SCH ×5 (02:33→11:04)
[2018-01-19 02:40] LABS: ALBUMIN 3.1 G/DL (3.4-5.0); ANION GAP 14 (8-16); BLOOD UREA NITROGEN 43 MG/DL (7-18); BUN/CREATININE RATIO 13.5 (5.4-32.0); CHLORIDE 106 MMOL/L (99-107); CREATININE 3.19 MG/DL (0.60-1.10); GLUCOSE 151 MG/DL (70-104); MAGNESIUM 2.5 MG/DL (1.5-2.4); POTASSIUM 5.1 MMOL/L (3.5-5.1); SODIUM 142 MMOL/L (135-145); TOTAL CARBON DIOXIDE 22.5 MMOL/L (24-32); eGFR 20 ML/MIN
[2018-01-19 02:56] LABS: ABG BASE EXCESS -4.1 mmol/L (-2.0-3.0); ABG OXYGEN SATURATION 92.4 % (95-98); ABG PCO2 (T) 36.7 mmHg (35.0-48.0); FCOHb 0.3 % (0.5-1.5); FMetHb 0.2 % (0.3-1.12); FO2Hb 91.9 % (94-100); MINUTE VOLUME 9 L/min; PATIENT TEMPERATURE 35.7; PEEP 5 cm H2O; RESPIRATORY RATE 14 b/min; RESPIRATORY RATE (OBSERVED) 14 b/min; TIDAL VOLUME 600 mL; TOTAL HEMOGLOBIN 11.4 G/dl (14.0-18.0)
[2018-01-19] MEDS: morphine 4 MG/ML inj SYRINge IV PRN ×3 (06:26→10:16)
[2018-01-19 07:11] LABS: BASOPHILS % (AUTO) 0.2 % (0-1); EOSINOPHILS % (AUTO) 0.1 % (0-6); HEMATOCRIT 31.5 % (42.0-52.0); HEMOGLOBIN 10.6 g/dl (14.0-17.9); LYMPHOCYTES # (AUTO) 0.6 X10'3 (1.1-4.8); LYMPHOCYTES % (AUTO) 5.1 % (21-51); MEAN CORPUSCULAR HEMOGLOBIN 31.5 PG (27.0-31.0); MEAN CORPUSCULAR HGB CONC 33.5 % (33.0-36.5); MEAN CORPUSCULAR VOLUME 93.9 FL (78-98); MEAN PLATELET VOLUME 9.1 FL (7.4-10.4); MONOCYTES # (AUTO) 0.7 X10'3 (0-0.9); MONOCYTES % (AUTO) 6.4 % (2-12); NEUTROPHILS # (AUTO) 10.1 X10'3 (1.8-7.7); NEUTROPHILS % (AUTO) 88.2 % (42-75); PLATELET COUNT 61 X10'3 (140-440); RED BLOOD COUNT 3.36 X10'6 (4.70-6.10); RED CELL DISTRIBUTION WIDTH 15.1 % (11.5-14.5); WHITE BLOOD COUNT 11.4 X10'3 (4.5-11.0)
[2018-01-19 07:27] LABS: ANION GAP 13 (8-16); BLOOD UREA NITROGEN 45 MG/DL (7-18); BUN/CREATININE RATIO 15.7 (5.4-32.0); CHLORIDE 105 MMOL/L (99-107); CREATININE 2.87 MG/DL (0.60-1.10); GLUCOSE 135 MG/DL (70-104); MAGNESIUM 2.4 MG/DL (1.5-2.4); PHOSPHORUS 6.8 MG/DL (2.3-4.5); POTASSIUM 5.3 MMOL/L (3.5-5.1); SODIUM 142 MMOL/L (135-145); TOTAL CARBON DIOXIDE 23.7 MMOL/L (24-32); eGFR 23 ML/MIN
[2018-01-19] MEDS: amiodarone/D5 360MG/200ML BAG 200 ML IV SCH ×2 (07:27→19:26)
[2018-01-19] MEDS: propofol 1000mg/100ml bottle 100 ML IV PRN ×2 (07:35→17:50)
[2018-01-19] MEDS: insulin Lispro (HumaLOG) vial - multi-dose SQ SCH ×3 (07:50→11:37)
[2018-01-19] MEDS: metoprolol tartrate 12.5mg (1/2 tablet) PO SCH ×2 (07:50→19:31)
[2018-01-19] MEDS: atorvastatin 10mg tablet PO SCH (07:55)
[2018-01-19] MEDS: pantoprazole 40 MG vial IV SCH (07:55)
[2018-01-19] MEDS: docusate sodium 100mg/10ml UD cup PO SCH ×2 (07:55→19:27)
[2018-01-19] MEDS: aspirin 325mg tablet, delayed-release (Ecotrin) PO SCH (07:55)
[2018-01-19] MEDS: mupirocin 2% nasal ointment 1gm UD NS SCH (07:55)
[2018-01-19] MEDS: ceFAZolin 1GM/D5W- ADD-VANTAGE 50 ML IV SCH (07:56)
[2018-01-19] MEDS: albumin (Human) 5% 250ml 250 ML IV PRN (08:29)
[2018-01-19 08:47] LABS: NUCLEATED RED BLOOD CELLS 2 /100WBC (0-0); PLATELET ESTIMATE DECREASED; TOTAL CELLS COUNTED 100
[2018-01-19 08:49] LABS: ALKALINE PHOSPHATASE 75 IU/L (46-116); BILIRUBIN,DIRECT 1.4 MG/DL (0-0.3); BILIRUBIN,TOTAL 2.2 MG/DL (0.1-1.0)
[2018-01-19 09:19] LABS: ALANINE AMINOTRANSFERASE 5710 U/L (12-78); ASPARTATE AMINO TRANSFERASE > 7000 U/L (10-37)
[2018-01-19 09:41] LABS: PO2 MIXED VENOUS (TEMP COR) 28.2 mmHg (35-46)
[2018-01-19 09:41] LABS: ABG HCO3 18.9 mmol/L (22.0-26.0); ABG PCO2 (T) 33.6 mmHg (35.0-48.0); ABG PH (T) 7.364 (7.350-7.450); ABG PO2 (T) 84.2 mmHg (83-108); FCOHb 0.2 % (0.5-1.5); FLOW 60 L/min; FMetHb 0.2 % (0.3-1.12); FO2Hb 94.6 % (94-100); MINUTE VOLUME 9 L/min; PEEP 5 cm H2O; RESPIRATORY RATE 14 b/min; RESPIRATORY RATE (OBSERVED) 14 b/min; TOTAL HEMOGLOBIN 10.7 G/dl (14.0-18.0)
[2018-01-19] MEDS: DOBUTamine-DoBUTrex 500mg/D5W 250 ML IV SCH ×2 (10:18→21:24)
[2018-01-19] MEDS: piperacillin/tazo 3.375gm/50ml 50 ML IV SCH ×3 (11:13→23:17)
[2018-01-19] MEDS: FENTANYL-0.9 % NACL/PF 100 ML IV PRN (11:19)
[2018-01-19] MEDS: albumin (human) 25% 100 ML IV solution IV SCH ×3 (11:31→19:30)
[2018-01-19 12:00] LABS: HIV ANTIBODY 1&2 RAPID NON-REACTIVE (Neg)
[2018-01-19 13:14] LABS: BASOPHILS % (AUTO) 0.1 % (0-1); EOSINOPHILS % (AUTO) 0 % (0-6); HEMATOCRIT 28.4 % (42.0-52.0); HEMOGLOBIN 9.6 g/dl (14.0-17.9); LYMPHOCYTES # (AUTO) 0.5 X10'3 (1.1-4.8); LYMPHOCYTES % (AUTO) 4.5 % (21-51); MEAN CORPUSCULAR HEMOGLOBIN 31.5 PG (27.0-31.0); MEAN CORPUSCULAR HGB CONC 33.8 % (33.0-36.5); MEAN CORPUSCULAR VOLUME 93.3 FL (78-98); MEAN PLATELET VOLUME 8.9 FL (7.4-10.4); MONOCYTES # (AUTO) 0.6 X10'3 (0-0.9); MONOCYTES % (AUTO) 5.1 % (2-12); NEUTROPHILS # (AUTO) 9.9 X10'3 (1.8-7.7); NEUTROPHILS % (AUTO) 90.3 % (42-75); PLATELET COUNT 51 X10'3 (140-440); RED BLOOD COUNT 3.04 X10'6 (4.70-6.10); RED CELL DISTRIBUTION WIDTH 15.2 % (11.5-14.5)
[2018-01-19 13:25] LABS: ALBUMIN 3.8 G/DL (3.4-5.0); ANION GAP 10 (8-16); BLOOD UREA NITROGEN 41 MG/DL (7-18); BUN/CREATININE RATIO 14.2 (5.4-32.0); CALCIUM 7.5 MG/DL (8.5-10.1); CHLORIDE 104 MMOL/L (99-107); CREATININE 2.88 MG/DL (0.60-1.10); GLUCOSE 115 MG/DL (70-104); MAGNESIUM 2.2 MG/DL (1.5-2.4); PHOSPHORUS 5.8 MG/DL (2.3-4.5); POTASSIUM 5.6 MMOL/L (3.5-5.1); SODIUM 138 MMOL/L (135-145); TOTAL CARBON DIOXIDE 23.6 MMOL/L (24-32); eGFR 23 ML/MIN
[2018-01-19 13:54] LABS: AMYLASE 61 U/L (25-115); LIPASE 208 U/L (73-393)
[2018-01-19 17:33] LABS: BASOPHILS # (AUTO) 0.1 X10'3 (0-0.2); BASOPHILS % (AUTO) 0.8 % (0-1); EOSINOPHILS % (AUTO) 0 % (0-6); HEMATOCRIT 27.4 % (42.0-52.0); HEMOGLOBIN 9.2 g/dl (14.0-17.9); LYMPHOCYTES # (AUTO) 0.5 X10'3 (1.1-4.8); LYMPHOCYTES % (AUTO) 5.6 % (21-51); MEAN CORPUSCULAR HEMOGLOBIN 31.5 PG (27.0-31.0); MEAN CORPUSCULAR HGB CONC 33.6 % (33.0-36.5); MEAN CORPUSCULAR VOLUME 93.7 FL (78-98); MEAN PLATELET VOLUME 8.6 FL (7.4-10.4); MONOCYTES # (AUTO) 0.6 X10'3 (0-0.9); MONOCYTES % (AUTO) 6.3 % (2-12); NEUTROPHILS # (AUTO) 8.1 X10'3 (1.8-7.7); NEUTROPHILS % (AUTO) 87.3 % (42-75); RED BLOOD COUNT 2.92 X10'6 (4.70-6.10); RED CELL DISTRIBUTION WIDTH 15.2 % (11.5-14.5); WHITE BLOOD COUNT 9.3 X10'3 (4.5-11.0)
[2018-01-19 17:42] LABS: ALBUMIN 4.1 G/DL (3.4-5.0); ANION GAP 14 (8-16); BLOOD UREA NITROGEN 40 MG/DL (7-18); BUN/CREATININE RATIO 13.9 (5.4-32.0); CALCIUM 7.6 MG/DL (8.5-10.1); CHLORIDE 103 MMOL/L (99-107); CREATININE 2.88 MG/DL (0.60-1.10); GLUCOSE 121 MG/DL (70-104); MAGNESIUM 2.2 MG/DL (1.5-2.4); PHOSPHORUS 5.9 MG/DL (2.3-4.5); POTASSIUM 5.6 MMOL/L (3.5-5.1); SODIUM 139 MMOL/L (135-145); TOTAL CARBON DIOXIDE 22.1 MMOL/L (24-32); eGFR 23 ML/MIN
[2018-01-19 17:50] LABS: PLATELET COUNT 39 X10'3 (140-440)
[2018-01-19 18:12] LABS: NUCLEATED RED BLOOD CELLS 1 /100WBC (0-0); TOTAL CELLS COUNTED 100
[2018-01-19 18:13] LABS: BURR CELLS FEW; PLATELET ESTIMATE DECREASED; SCHISTOCYTES FEW
[2018-01-19] MEDS: sodium chloride 0.45% 1,000 ML IV SCH (19:30)
[2018-01-19] MEDS: DOPamine 400mg/D5W 250ml 250 ML IV PRN (21:24)
[2018-01-19 23:39] LABS: ALBUMIN 4.3 G/DL (3.4-5.0); ANION GAP 13 (8-16); BLOOD UREA NITROGEN 41 MG/DL (7-18); BUN/CREATININE RATIO 13.5 (5.4-32.0); CALCIUM 7.6 MG/DL (8.5-10.1); CHLORIDE 103 MMOL/L (99-107); CREATININE 3.03 MG/DL (0.60-1.10); GLUCOSE 117 MG/DL (70-104); MAGNESIUM 2.2 MG/DL (1.5-2.4); POTASSIUM 5.7 MMOL/L (3.5-5.1); SODIUM 140 MMOL/L (135-145); eGFR 21 ML/MIN
[2018-01-20] VITALS (27 sets, daily range): BP systolic 72–127; BP diastolic 43–64
[2018-01-20] MEDS: albumin (human) 25% 100 ML IV solution IV SCH ×4 (00:09→20:25)
[2018-01-20 00:48] LABS: BASOPHILS # (AUTO) 0.2 X10'3 (0-0.2); BASOPHILS % (AUTO) 1.8 % (0-1); EOSINOPHILS % (AUTO) 0 % (0-6); HEMATOCRIT 26.7 % (42.0-52.0); HEMOGLOBIN 8.8 g/dl (14.0-17.9); LYMPHOCYTES # (AUTO) 0.9 X10'3 (1.1-4.8); LYMPHOCYTES % (AUTO) 7.9 % (21-51); MEAN CORPUSCULAR VOLUME 93.9 FL (78-98); MEAN PLATELET VOLUME 8.8 FL (7.4-10.4); MONOCYTES # (AUTO) 0.9 X10'3 (0-0.9); MONOCYTES % (AUTO) 8.3 % (2-12); NEUTROPHILS # (AUTO) 9.1 X10'3 (1.8-7.7); RED BLOOD COUNT 2.84 X10'6 (4.70-6.10); RED CELL DISTRIBUTION WIDTH 14.7 % (11.5-14.5); WHITE BLOOD COUNT 11.1 X10'3 (4.5-11.0)
[2018-01-20 01:05] LABS: PLATELET COUNT 24 X10'3 (140-440)
[2018-01-20 01:08] LABS: TOTAL CELLS COUNTED 100
[2018-01-20 01:09] LABS: NUCLEATED RED BLOOD CELLS 8 /100WBC (0-0)
[2018-01-20 01:12] LABS: BURR CELLS FEW; PLATELET ESTIMATE DECREASED; SCHISTOCYTES FEW
[2018-01-20 03:11] LABS: ABG BASE EXCESS -6.9 mmol/L (-2.0-3.0); ABG HCO3 18.3 mmol/L (22.0-26.0); ABG OXYGEN SATURATION 92.2 % (95-98); ABG PH (T) 7.335 (7.350-7.450); ABG PO2 (T) 77.4 mmHg (83-108); FCOHb 0.2 % (0.5-1.5); FMetHb 0.3 % (0.3-1.12); FO2Hb 91.7 % (94-100); MINUTE VOLUME 9 L/min; PATIENT TEMPERATURE 36.7; PEEP 5 cm H2O; RESPIRATORY RATE 14 b/min; RESPIRATORY RATE (OBSERVED) 14 b/min; TIDAL VOLUME 600 mL; TOTAL HEMOGLOBIN 9.2 G/dl (14.0-18.0)
[2018-01-20] MEDS: propofol 1000mg/100ml bottle 100 ML IV PRN ×3 (04:37→22:26)
[2018-01-20 05:11] LABS: HEMATOCRIT 25.4 % (42.0-52.0); HEMOGLOBIN 8.6 g/dl (14.0-17.9); MEAN CORPUSCULAR HEMOGLOBIN 31.8 PG (27.0-31.0); MEAN CORPUSCULAR HGB CONC 33.9 % (33.0-36.5); MEAN CORPUSCULAR VOLUME 93.9 FL (78-98); MEAN PLATELET VOLUME 8.9 FL (7.4-10.4); RED CELL DISTRIBUTION WIDTH 15.6 % (11.5-14.5)
[2018-01-20] MEDS: BICARB DIALYSIS W/CALCIUM SOL 5,000 ML HE SCH ×10 (05:23→22:25)
[2018-01-20 05:44] LABS: ALBUMIN 4.6 G/DL (3.4-5.0); ALBUMIN/GLOBULIN RATIO 3.3 (1.1-1.5); ALKALINE PHOSPHATASE 77 IU/L (46-116); ANION GAP 15 (8-16); BILIRUBIN,TOTAL 3.3 MG/DL (0.1-1.0); BLOOD UREA NITROGEN 39 MG/DL (7-18); BUN/CREATININE RATIO 13.7 (5.4-32.0); CALCIUM 7.7 MG/DL (8.5-10.1); CHLORIDE 102 MMOL/L (99-107); CREATININE 2.85 MG/DL (0.60-1.10); GLUCOSE 123 MG/DL (70-104); MAGNESIUM 2.2 MG/DL (1.5-2.4); PHOSPHORUS 5.6 MG/DL (2.3-4.5); POTASSIUM 5.5 MMOL/L (3.5-5.1); SODIUM 139 MMOL/L (135-145); TOTAL CARBON DIOXIDE 22.3 MMOL/L (24-32); eGFR 23 ML/MIN
[2018-01-20 05:48] LABS: ALANINE AMINOTRANSFERASE 2871 U/L (12-78)
[2018-01-20 06:03] LABS: ASPARTATE AMINO TRANSFERASE > 7000 U/L (10-37)
[2018-01-20 06:51] LABS: HBSAG SCREEN Negative (Negative); HEP A AB, IGM Negative (Negative); HEP B CORE AB, IGM Negative (Negative); HEPATITIS C ANTIBODY <0.1 s/co ratio (0.0-0.9)
[2018-01-20] MEDS: FENTANYL-0.9 % NACL/PF 100 ML IV PRN (06:53)
[2018-01-20] MEDS: amiodarone/D5 360MG/200ML BAG 200 ML IV SCH (06:54)
[2018-01-20 07:32] LABS: BANDS% (MANUAL) 1 % (0-10); LYMPHOCYTES % (MANUAL) 8 % (21-51); MONOCYTES % (MANUAL) 6 % (2-12); NEUTROPHILS % (MANUAL) 83 % (42-75); NUCLEATED RED BLOOD CELLS 4 /100WBC (0-0); PLATELET ESTIMATE DECREASED; TOTAL CELLS COUNTED 100; WHITE BLOOD COUNT 10.4 X10'3 (4.5-11.0)
[2018-01-20 07:33] LABS: ANISOCYTOSIS 1+
[2018-01-20 07:34] LABS: PLATELET COUNT 28 X10'3 (140-440)
[2018-01-20] MEDS: metoprolol tartrate 12.5mg (1/2 tablet) PO SCH ×2 (08:00→20:00)
[2018-01-20] MEDS: piperacillin/tazo 3.375gm/50ml 50 ML IV SCH ×2 (08:24→16:36)
[2018-01-20] MEDS: aspirin 325mg tablet, delayed-release (Ecotrin) PO SCH (08:24)
[2018-01-20] MEDS: docusate sodium 100mg/10ml UD cup PO SCH ×2 (08:24→20:25)
[2018-01-20] MEDS: pantoprazole 40 MG vial IV SCH (08:24)
[2018-01-20] MEDS: atorvastatin 10mg tablet PO SCH (08:25)
[2018-01-20] MEDS: NORepinephrine 8mg/ 250ml NS 250 ML IV PRN (08:28)
[2018-01-20] MEDS: DOBUTamine-DoBUTrex 500mg/D5W 250 ML IV SCH (10:19)
[2018-01-20 10:43] LABS: BASOPHILS % (AUTO) 0.5 % (0-1); EOSINOPHILS % (AUTO) 0 % (0-6); HEMATOCRIT 25.9 % (42.0-52.0); HEMOGLOBIN 8.7 g/dl (14.0-17.9); LYMPHOCYTES # (AUTO) 0.8 X10'3 (1.1-4.8); LYMPHOCYTES % (AUTO) 9.4 % (21-51); MEAN CORPUSCULAR HEMOGLOBIN 31.6 PG (27.0-31.0); MEAN CORPUSCULAR HGB CONC 33.6 % (33.0-36.5); MEAN PLATELET VOLUME 7.4 FL (7.4-10.4); MONOCYTES # (AUTO) 0.5 X10'3 (0-0.9); NEUTROPHILS # (AUTO) 7.2 X10'3 (1.8-7.7); NEUTROPHILS % (AUTO) 84.1 % (42-75); PLATELET COUNT 52 X10'3 (140-440); RED BLOOD COUNT 2.75 X10'6 (4.70-6.10); RED CELL DISTRIBUTION WIDTH 15.5 % (11.5-14.5); WHITE BLOOD COUNT 8.6 X10'3 (4.5-11.0)
[2018-01-20 10:56] LABS: ALBUMIN 4.4 G/DL (3.4-5.0); ANION GAP 10 (8-16); BLOOD UREA NITROGEN 37 MG/DL (7-18); BUN/CREATININE RATIO 13.7 (5.4-32.0); CALCIUM 7.9 MG/DL (8.5-10.1); CHLORIDE 103 MMOL/L (99-107); GLUCOSE 124 MG/DL (70-104); MAGNESIUM 2.3 MG/DL (1.5-2.4); PHOSPHORUS 5.1 MG/DL (2.3-4.5); POTASSIUM 5.2 MMOL/L (3.5-5.1); SODIUM 137 MMOL/L (135-145); TOTAL CARBON DIOXIDE 23.6 MMOL/L (24-32); eGFR 24 ML/MIN
[2018-01-20 11:31] LABS: BURR CELLS FEW; NUCLEATED RED BLOOD CELLS 16 /100WBC (0-0); PLATELET ESTIMATE DECREASED; SCHISTOCYTES FEW; TOTAL CELLS COUNTED 100
[2018-01-20] MEDS: insulin regular, human 100 UNIT in normal saline 100ml IV soln 99 ML IV SCH ×4 (12:05→17:25)
[2018-01-20 16:46] LABS: BASOPHILS # (AUTO) 0.5 X10'3 (0-0.2); BASOPHILS % (AUTO) 4.5 % (0-1); EOSINOPHILS % (AUTO) 0 % (0-6); HEMATOCRIT 25.3 % (42.0-52.0); HEMOGLOBIN 8.6 g/dl (14.0-17.9); LYMPHOCYTES # (AUTO) 1.1 X10'3 (1.1-4.8); LYMPHOCYTES % (AUTO) 9.9 % (21-51); MEAN CORPUSCULAR HEMOGLOBIN 31.9 PG (27.0-31.0); MEAN CORPUSCULAR HGB CONC 34.2 % (33.0-36.5); MEAN CORPUSCULAR VOLUME 93.5 FL (78-98); MEAN PLATELET VOLUME 8.1 FL (7.4-10.4); MONOCYTES # (AUTO) 1.1 X10'3 (0-0.9); MONOCYTES % (AUTO) 9.4 % (2-12); NEUTROPHILS # (AUTO) 8.7 X10'3 (1.8-7.7); NEUTROPHILS % (AUTO) 76.2 % (42-75); RED BLOOD COUNT 2.71 X10'6 (4.70-6.10); RED CELL DISTRIBUTION WIDTH 14.3 % (11.5-14.5)
[2018-01-20 16:58] LABS: ALBUMIN 4.5 G/DL (3.4-5.0); ANION GAP 12 (8-16); BLOOD UREA NITROGEN 37 MG/DL (7-18); BUN/CREATININE RATIO 14.3 (5.4-32.0); CALCIUM 8.6 MG/DL (8.5-10.1); CHLORIDE 103 MMOL/L (99-107); CREATININE 2.58 MG/DL (0.60-1.10); GLUCOSE 124 MG/DL (70-104); MAGNESIUM 2.2 MG/DL (1.5-2.4); PHOSPHORUS 4.5 MG/DL (2.3-4.5); POTASSIUM 5.1 MMOL/L (3.5-5.1); SODIUM 139 MMOL/L (135-145); TOTAL CARBON DIOXIDE 23.6 MMOL/L (24-32); eGFR 26 ML/MIN
[2018-01-20 17:20] LABS: NUCLEATED RED BLOOD CELLS 27 /100WBC (0-0); TOTAL CELLS COUNTED 100
[2018-01-20 17:22] LABS: PLATELET ESTIMATE DECREASED
[2018-01-20 17:23] LABS: BURR CELLS FEW; SCHISTOCYTES FEW; SMUDGE CELLS 1+
[2018-01-20 17:26] LABS: PLATELET COUNT 35 X10'3 (140-440)
[2018-01-20 17:27] LABS: RHEUM FACTOR QUAL REFLEX TITER NEGATIVE (Neg)
[2018-01-20 18:13] LABS: GLUCOSE,BODY FLUID 112 MG/DL; LDH,BODY FLUID 2504 U/L; TOTAL PROTEIN,BODY FLUID 4.5 G/DL
[2018-01-20 18:30] LABS: BF RBC COUNT 4600 /CU MM; BF WBC COUNT 17 /CU MM (0-1000); BFAPPEAR HAZY; BFCOLOR OTHER; BFVOLUME 50 ML; LYMPHOCYTES,BODY FLUID 62 %; MONOCYTES,BODY FLUID 2 %; NEUTROPHILS,BODY FLUID 36 %
[2018-01-20] MEDS: lactobacillus rhamnosus 10,000 MMU CELLS/CAPSULE PO SCH (20:26)
[2018-01-20 23:10] LABS: BASOPHILS % (AUTO) 0.1 % (0-1); EOSINOPHILS % (AUTO) 0 % (0-6); HEMATOCRIT 23.2 % (42.0-52.0); HEMOGLOBIN 7.9 g/dl (14.0-17.9); LYMPHOCYTES # (AUTO) 0.7 X10'3 (1.1-4.8); MEAN CORPUSCULAR HEMOGLOBIN 31.8 PG (27.0-31.0); MEAN CORPUSCULAR HGB CONC 34.1 % (33.0-36.5); MEAN CORPUSCULAR VOLUME 93.2 FL (78-98); MEAN PLATELET VOLUME 9.2 FL (7.4-10.4); MONOCYTES # (AUTO) 0.3 X10'3 (0-0.9); MONOCYTES % (AUTO) 4.6 % (2-12); NEUTROPHILS # (AUTO) 6.1 X10'3 (1.8-7.7); NEUTROPHILS % (AUTO) 85.3 % (42-75); RED BLOOD COUNT 2.49 X10'6 (4.70-6.10); RED CELL DISTRIBUTION WIDTH 15.4 % (11.5-14.5)
[2018-01-20 23:22] LABS: ANION GAP 9 (8-16); BLOOD UREA NITROGEN 35 MG/DL (7-18); BUN/CREATININE RATIO 14.1 (5.4-32.0); CHLORIDE 103 MMOL/L (99-107); CREATININE 2.48 MG/DL (0.60-1.10); GLUCOSE 124 MG/DL (70-104); MAGNESIUM 2.1 MG/DL (1.5-2.4); SODIUM 137 MMOL/L (135-145); TOTAL CARBON DIOXIDE 24.9 MMOL/L (24-32); eGFR 27 ML/MIN
[2018-01-20 23:30] LABS: PHOSPHORUS 3.5 MG/DL (2.3-4.5); POTASSIUM 4.7 MMOL/L (3.5-5.1)
[2018-01-20 23:33] LABS: PLATELET COUNT 25 X10'3 (140-440)
[2018-01-20 23:35] LABS: WHITE BLOOD COUNT 7.2 X10'3 (4.5-11.0)
[2018-01-21] VITALS (30 sets, daily range): BP systolic 79–144; BP diastolic 40–65
[2018-01-21] MEDS: albumin (human) 25% 100 ML IV solution IV SCH ×3 (00:24→08:20)
[2018-01-21] MEDS: piperacillin/tazo 3.375gm/50ml 50 ML IV SCH ×3 (00:25→15:29)
[2018-01-21] MEDS: BICARB DIALYSIS W/CALCIUM SOL 5,000 ML HE SCH ×14 (01:40→23:20)
[2018-01-21] MEDS: FENTANYL-0.9 % NACL/PF 100 ML IV PRN ×2 (03:42→17:20)
[2018-01-21] MEDS: propofol 1000mg/100ml bottle 100 ML IV PRN ×2 (03:43→17:16)
[2018-01-21] MEDS: DOBUTamine-DoBUTrex 500mg/D5W 250 ML IV SCH ×2 (03:43→17:16)
[2018-01-21 04:11] LABS: ABG BASE EXCESS -3.6 mmol/L (-2.0-3.0); ABG HCO3 20.3 mmol/L (22.0-26.0); ABG OXYGEN SATURATION 91.1 % (95-98); ABG PH (T) 7.441 (7.350-7.450); ABG PO2 (T) 64.8 mmHg (83-108); FCOHb 0.3 % (0.5-1.5); FO2Hb 90.8 % (94-100); MINUTE VOLUME 9 L/min; PATIENT TEMPERATURE 35.7; PEEP 5 cm H2O; RESPIRATORY RATE 16 b/min; RESPIRATORY RATE (OBSERVED) 17 b/min; TIDAL VOLUME 500 mL; TOTAL HEMOGLOBIN 8.8 G/dl (14.0-18.0)
[2018-01-21 05:51] LABS: MEAN CORPUSCULAR HEMOGLOBIN 32.3 PG (27.0-31.0); MEAN CORPUSCULAR HGB CONC 34.8 % (33.0-36.5); MEAN CORPUSCULAR VOLUME 92.9 FL (78-98); MEAN PLATELET VOLUME 9.8 FL (7.4-10.4); RED BLOOD COUNT 2.47 X10'6 (4.70-6.10); RED CELL DISTRIBUTION WIDTH 15.4 % (11.5-14.5)
[2018-01-21 06:13] LABS: ALBUMIN 5.2 G/DL (3.4-5.0); ALKALINE PHOSPHATASE 64 IU/L (46-116); ANION GAP 12 (8-16); BILIRUBIN,TOTAL 4.1 MG/DL (0.1-1.0); BLOOD UREA NITROGEN 34 MG/DL (7-18); CALCIUM 8.1 MG/DL (8.5-10.1); CHLORIDE 102 MMOL/L (99-107); CREATININE 2.42 MG/DL (0.60-1.10); MAGNESIUM 2.1 MG/DL (1.5-2.4); PREALBUMIN 11.7 MG/DL (19-36); SODIUM 139 MMOL/L (135-145); TOTAL CARBON DIOXIDE 25.2 MMOL/L (24-32); eGFR 28 ML/MIN
[2018-01-21 06:23] LABS: ALANINE AMINOTRANSFERASE 1326 U/L (12-78); ALBUMIN/GLOBULIN RATIO 4.7 (1.1-1.5); GLUCOSE 123 MG/DL (70-104); PHOSPHORUS 2.8 MG/DL (2.3-4.5); POTASSIUM 4.6 MMOL/L (3.5-5.1); TOTAL PROTEIN 6.3 G/DL (6.4-8.2)
[2018-01-21 06:32] LABS: ASPARTATE AMINO TRANSFERASE 2165 U/L (10-37)
[2018-01-21 06:56] LABS: PLATELET COUNT 23 X10'3 (140-440); WHITE BLOOD COUNT 8.2 X10'3 (4.5-11.0)
[2018-01-21 06:58] LABS: ANISOCYTOSIS 1+; PLATELET ESTIMATE DECREASED; SMUDGE CELLS 1+; TOTAL CELLS COUNTED 100
[2018-01-21 07:00] LABS: LARGE PLATELETS FEW
[2018-01-21] MEDS: metoprolol tartrate 12.5mg (1/2 tablet) PO SCH ×2 (08:00→20:00)
[2018-01-21 08:10] LABS: OXYGEN SATURATION (MIXED VEN) 41.4 % (60-80); PO2 MIXED VENOUS (TEMP COR) 25.1 mmHg (35-46)
[2018-01-21] MEDS: pantoprazole 40 MG vial IV SCH (08:20)
[2018-01-21] MEDS: docusate sodium 100mg/10ml UD cup PO SCH ×2 (08:20→20:45)
[2018-01-21] MEDS: aspirin 325mg tablet, delayed-release (Ecotrin) PO SCH (08:21)
[2018-01-21] MEDS: atorvastatin 10mg tablet PO SCH (08:21)
[2018-01-21] MEDS: lactobacillus rhamnosus 10,000 MMU CELLS/CAPSULE PO SCH ×2 (08:21→20:45)
[2018-01-21] MEDS: insulin regular, human 100 UNIT in normal saline 100ml IV soln 99 ML IV SCH ×6 (10:04→15:40)
[2018-01-21 12:08] LABS: HEMATOCRIT 23.5 % (42.0-52.0); HEMOGLOBIN 8.1 g/dl (14.0-17.9); MEAN CORPUSCULAR HEMOGLOBIN 32.3 PG (27.0-31.0); MEAN CORPUSCULAR HGB CONC 34.4 % (33.0-36.5); MEAN PLATELET VOLUME 7.8 FL (7.4-10.4); PLATELET COUNT 52 X10'3 (140-440); RED CELL DISTRIBUTION WIDTH 14.6 % (11.5-14.5)
[2018-01-21 12:15] LABS: ALBUMIN 5.4 G/DL (3.4-5.0); ANION GAP 13 (8-16); BLOOD UREA NITROGEN 32 MG/DL (7-18); BUN/CREATININE RATIO 13.9 (5.4-32.0); CALCIUM 8.4 MG/DL (8.5-10.1); CHLORIDE 101 MMOL/L (99-107); GLUCOSE 116 MG/DL (70-104); MAGNESIUM 2.1 MG/DL (1.5-2.4); SODIUM 138 MMOL/L (135-145); TOTAL CARBON DIOXIDE 23.6 MMOL/L (24-32); eGFR 29 ML/MIN
[2018-01-21 12:16] LABS: PHOSPHORUS 2.8 MG/DL (2.3-4.5); POTASSIUM 4.6 MMOL/L (3.5-5.1)
[2018-01-21] MEDS: sodium chloride 0.45% 1,000 ML IV SCH (12:22)
[2018-01-21] MEDS: DOPamine 400mg/D5W 250ml 250 ML IV PRN (13:36)
[2018-01-21 13:40] LABS: WHITE BLOOD COUNT 9.1 X10'3 (4.5-11.0)
[2018-01-21 13:46] LABS: NUCLEATED RED BLOOD CELLS 41 /100WBC (0-0); TOTAL CELLS COUNTED 100
[2018-01-21 13:47] LABS: ANISOCYTOSIS 1+; LARGE PLATELETS FEW; PLATELET ESTIMATE DECREASED; SMUDGE CELLS 1+
[2018-01-21 16:31] LABS: ABG BASE EXCESS -3.6 mmol/L (-2.0-3.0); ABG HCO3 21.4 mmol/L (22.0-26.0); ABG OXYGEN SATURATION 92.2 % (95-98); ABG PCO2 (T) 38.3 mmHg (35.0-48.0); ABG PH (T) 7.365 (7.350-7.450); ABG PO2 (T) 72.9 mmHg (83-108); FCOHb 0.2 % (0.5-1.5); FLOW 50 L/min; FMetHb 0.2 % (0.3-1.12); FO2Hb 91.8 % (94-100); MINUTE VOLUME 9 L/min; PEEP 5 cm H2O; RESPIRATORY RATE 14 b/min; RESPIRATORY RATE (OBSERVED) 14 b/min; TIDAL VOLUME 518 mL; TOTAL HEMOGLOBIN 10.2 G/dl (14.0-18.0)
[2018-01-21 17:15] LABS: BASOPHILS % (AUTO) 0.3 % (0-1); EOSINOPHILS % (AUTO) 0.4 % (0-6); HEMATOCRIT 27.5 % (42.0-52.0); HEMOGLOBIN 9.6 g/dl (14.0-17.9); LYMPHOCYTES # (AUTO) 0.9 X10'3 (1.1-4.8); LYMPHOCYTES % (AUTO) 8.9 % (21-51); MEAN CORPUSCULAR HEMOGLOBIN 31.4 PG (27.0-31.0); MEAN CORPUSCULAR HGB CONC 34.9 % (33.0-36.5); MEAN PLATELET VOLUME 8.1 FL (7.4-10.4); MONOCYTES # (AUTO) 0.3 X10'3 (0-0.9); MONOCYTES % (AUTO) 3.2 % (2-12); NEUTROPHILS # (AUTO) 8.6 X10'3 (1.8-7.7); NEUTROPHILS % (AUTO) 87.2 % (42-75); RED BLOOD COUNT 3.06 X10'6 (4.70-6.10); RED CELL DISTRIBUTION WIDTH 17.3 % (11.5-14.5); WHITE BLOOD COUNT 9.9 X10'3 (4.5-11.0)
[2018-01-21 17:26] LABS: ALBUMIN 5.1 G/DL (3.4-5.0); BLOOD UREA NITROGEN 32 MG/DL (7-18); BUN/CREATININE RATIO 13.7 (5.4-32.0); CALCIUM 8.4 MG/DL (8.5-10.1); CHLORIDE 102 MMOL/L (99-107); CREATININE 2.33 MG/DL (0.60-1.10); MAGNESIUM 2.1 MG/DL (1.5-2.4); eGFR 29 ML/MIN
[2018-01-21 17:40] LABS: PLATELET COUNT 34 X10'3 (140-440)
[2018-01-21 17:43] LABS: ANION GAP 11 (8-16); GLUCOSE 116 MG/DL (70-104); POTASSIUM 4.5 MMOL/L (3.5-5.1)
[2018-01-21 17:45] LABS: PHOSPHORUS 2.7 MG/DL (2.3-4.5)
[2018-01-21 17:47] LABS: SODIUM 138 MMOL/L (135-145)
[2018-01-21] MEDS ORDERED: heparin 10,000 units/1 ML INJ IV PRN (20:30)
[2018-01-21 20:47] LABS: BASOPHILS % (AUTO) 0.1 % (0-1); EOSINOPHILS % (AUTO) 0.4 % (0-6); HEMATOCRIT 27.4 % (42.0-52.0); HEMOGLOBIN 9.6 g/dl (14.0-17.9); LYMPHOCYTES # (AUTO) 0.8 X10'3 (1.1-4.8); LYMPHOCYTES % (AUTO) 7.6 % (21-51); MEAN CORPUSCULAR HEMOGLOBIN 31.4 PG (27.0-31.0); MEAN CORPUSCULAR HGB CONC 34.9 % (33.0-36.5); MEAN CORPUSCULAR VOLUME 90.1 FL (78-98); MEAN PLATELET VOLUME 9.1 FL (7.4-10.4); MONOCYTES # (AUTO) 0.4 X10'3 (0-0.9); MONOCYTES % (AUTO) 3.6 % (2-12); NEUTROPHILS # (AUTO) 9.6 X10'3 (1.8-7.7); NEUTROPHILS % (AUTO) 88.3 % (42-75); RED BLOOD COUNT 3.04 X10'6 (4.70-6.10); RED CELL DISTRIBUTION WIDTH 17.1 % (11.5-14.5); WHITE BLOOD COUNT 10.8 X10'3 (4.5-11.0)
[2018-01-21 20:53] LABS: PLATELET COUNT 25 X10'3 (140-440)
[2018-01-21 21:13] LABS: ANISOCYTOSIS 1+; MICROCYTOSIS 1+; NUCLEATED RED BLOOD CELLS 50 /100WBC (0-0); PLATELET ESTIMATE DECREASED; TOTAL CELLS COUNTED 100
[2018-01-21 22:30] LABS: PARTIAL THROMBOPLASTIN TIME 59 SECONDS (22-32); PROTHROMBIN TIME 20.2 SECONDS (9.0-12.0)
[2018-01-21 23:37] LABS: D-DIMER 24.18 MG/L FEU (0-0.50)
[2018-01-21 23:39] LABS: ALBUMIN 4.8 G/DL (3.4-5.0); ANION GAP 11 (8-16); BLOOD UREA NITROGEN 34 MG/DL (7-18); BUN/CREATININE RATIO 14.3 (5.4-32.0); CALCIUM 8.2 MG/DL (8.5-10.1); CHLORIDE 103 MMOL/L (99-107); CREATININE 2.37 MG/DL (0.60-1.10); GLUCOSE 107 MG/DL (70-104); MAGNESIUM 1.9 MG/DL (1.5-2.4); SODIUM 139 MMOL/L (135-145); TOTAL CARBON DIOXIDE 24.7 MMOL/L (24-32); eGFR 28 ML/MIN
[2018-01-21 23:46] LABS: POTASSIUM 4.6 MMOL/L (3.5-5.1)
[2018-01-22] VITALS (22 sets, daily range): BP systolic 96–136; BP diastolic 48–66
[2018-01-22] MEDS: BICARB DIALYSIS W/CALCIUM SOL 5,000 ML HE SCH ×13 (01:00→21:00)
[2018-01-22] MEDS: piperacillin/tazo 3.375gm/50ml 50 ML IV SCH ×3 (01:33→17:01)
[2018-01-22] MEDS: propofol 1000mg/100ml bottle 100 ML IV PRN ×2 (01:34→07:38)
[2018-01-22 04:00] LABS: ABG BASE EXCESS -2.7 mmol/L (-2.0-3.0); ABG HCO3 22.5 mmol/L (22.0-26.0); ABG OXYGEN SATURATION 91.2 % (95-98); ABG PCO2 (T) 39.3 mmHg (35.0-48.0); ABG PH (T) 7.373 (7.350-7.450); ABG PO2 (T) 63.2 mmHg (83-108); FCOHb 0.3 % (0.5-1.5); FMetHb 0.2 % (0.3-1.12); FO2Hb 90.7 % (94-100); MINUTE VOLUME 9 L/min; PATIENT TEMPERATURE 36.2; PEEP 8 cm H2O; RESPIRATORY RATE 14 b/min; RESPIRATORY RATE (OBSERVED) 14 b/min; TIDAL VOLUME 500 mL; TOTAL HEMOGLOBIN 10.2 G/dl (14.0-18.0)
[2018-01-22 05:55] LABS: BASOPHILS % (AUTO) 0.2 % (0-1); EOSINOPHILS # (AUTO) 0.1 X10'3 (0-0.9); EOSINOPHILS % (AUTO) 0.8 % (0-6); HEMATOCRIT 28.7 % (42.0-52.0); HEMOGLOBIN 9.7 g/dl (14.0-17.9); LYMPHOCYTES % (AUTO) 6.4 % (21-51); MEAN CORPUSCULAR HEMOGLOBIN 30.9 PG (27.0-31.0); MEAN CORPUSCULAR HGB CONC 33.7 % (33.0-36.5); MEAN CORPUSCULAR VOLUME 91.5 FL (78-98); MEAN PLATELET VOLUME 8.9 FL (7.4-10.4); MONOCYTES # (AUTO) 0.9 X10'3 (0-0.9); MONOCYTES % (AUTO) 5.6 % (2-12); NEUTROPHILS # (AUTO) 14.1 X10'3 (1.8-7.7); RED BLOOD COUNT 3.14 X10'6 (4.70-6.10); RED CELL DISTRIBUTION WIDTH 17.5 % (11.5-14.5); WHITE BLOOD COUNT 16.2 X10'3 (4.5-11.0)
[2018-01-22 06:27] LABS: ALANINE AMINOTRANSFERASE 872 U/L (12-78); ALBUMIN 4.6 G/DL (3.4-5.0); ALKALINE PHOSPHATASE 79 IU/L (46-116); ANION GAP 12 (8-16); ASPARTATE AMINO TRANSFERASE 890 U/L (10-37); BILIRUBIN,TOTAL 5.9 MG/DL (0.1-1.0); BLOOD UREA NITROGEN 32 MG/DL (7-18); BUN/CREATININE RATIO 13.4 (5.4-32.0); CALCIUM 8.2 MG/DL (8.5-10.1); CHLORIDE 102 MMOL/L (99-107); CREATININE 2.39 MG/DL (0.60-1.10); GLUCOSE 107 MG/DL (70-104); MAGNESIUM 2.1 MG/DL (1.5-2.4); SODIUM 138 MMOL/L (135-145); TOTAL CARBON DIOXIDE 23.8 MMOL/L (24-32); eGFR 28 ML/MIN
[2018-01-22 06:30] LABS: ALBUMIN/GLOBULIN RATIO 3.5 (1.1-1.5); PHOSPHORUS 3.1 MG/DL (2.3-4.5); POTASSIUM 4.7 MMOL/L (3.5-5.1); TOTAL PROTEIN 5.9 G/DL (6.4-8.2)
[2018-01-22 06:46] LABS: PLATELET COUNT 34 X10'3 (140-440)
[2018-01-22 06:54] LABS: LARGE PLATELETS FEW; NUCLEATED RED BLOOD CELLS 19 /100WBC (0-0); PLATELET ESTIMATE DECREASED; POLYCHROMASIA 2+; TOTAL CELLS COUNTED 100
[2018-01-22 06:55] LABS: ANISOCYTOSIS 2+
[2018-01-22] MEDS: DOBUTamine-DoBUTrex 500mg/D5W 250 ML IV SCH (07:37)
[2018-01-22] MEDS: FENTANYL-0.9 % NACL/PF 100 ML IV PRN ×2 (07:37→20:19)
[2018-01-22] MEDS: pantoprazole 40 MG vial IV SCH (07:49)
[2018-01-22] MEDS: docusate sodium 100mg/10ml UD cup PO SCH ×2 (07:49→20:00)
[2018-01-22] MEDS: atorvastatin 10mg tablet PO SCH (07:49)
[2018-01-22] MEDS: aspirin 325mg tablet, delayed-release (Ecotrin) PO SCH (07:49)
[2018-01-22] MEDS: lactobacillus rhamnosus 10,000 MMU CELLS/CAPSULE PO SCH ×2 (07:49→20:00)
[2018-01-22] MEDS: metoprolol tartrate 12.5mg (1/2 tablet) PO SCH ×2 (08:00→20:00)
[2018-01-22] MEDS ORDERED: bisacodyl 10mg suppository rectal RC PRN (10:55)
[2018-01-22 11:31] LABS: OXYGEN SATURATION (MIXED VEN) 38.7 % (60-80); PO2 MIXED VENOUS (TEMP COR) 25.4 mmHg (35-46)
[2018-01-22] MEDS ORDERED: vancomycin inj 1,250 MG in normal saline 250ml IV soln 250 ML IV ONE (11:45)
[2018-01-22] MEDS ORDERED: vancomycin inj 1,250 MG in normal saline 250ml IV soln 250 ML IV PRN (11:45)
[2018-01-22] MEDS ORDERED: metoclopramide 5 mg/ml inj IV PRN (11:48)
[2018-01-22 12:08] LABS: BASOPHILS % (AUTO) 0.2 % (0-1); EOSINOPHILS # (AUTO) 0.2 X10'3 (0-0.9); EOSINOPHILS % (AUTO) 1.2 % (0-6); HEMATOCRIT 29.6 % (42.0-52.0); HEMOGLOBIN 9.9 g/dl (14.0-17.9); LYMPHOCYTES % (AUTO) 5.3 % (21-51); MEAN CORPUSCULAR HEMOGLOBIN 30.7 PG (27.0-31.0); MEAN CORPUSCULAR HGB CONC 33.7 % (33.0-36.5); MEAN CORPUSCULAR VOLUME 91.3 FL (78-98); MEAN PLATELET VOLUME 9.8 FL (7.4-10.4); MONOCYTES # (AUTO) 1.1 X10'3 (0-0.9); MONOCYTES % (AUTO) 6.2 % (2-12); NEUTROPHILS # (AUTO) 15.9 X10'3 (1.8-7.7); NEUTROPHILS % (AUTO) 87.1 % (42-75); RED BLOOD COUNT 3.24 X10'6 (4.70-6.10); RED CELL DISTRIBUTION WIDTH 17.9 % (11.5-14.5); WHITE BLOOD COUNT 18.2 X10'3 (4.5-11.0)
[2018-01-22 12:20] LABS: ALBUMIN 4.3 G/DL (3.4-5.0); ANION GAP 12 (8-16); BLOOD UREA NITROGEN 31 MG/DL (7-18); BUN/CREATININE RATIO 13.5 (5.4-32.0); CALCIUM 8.3 MG/DL (8.5-10.1); CHLORIDE 102 MMOL/L (99-107); GLUCOSE 102 MG/DL (70-104); SODIUM 138 MMOL/L (135-145); TOTAL CARBON DIOXIDE 24.1 MMOL/L (24-32); eGFR 29 ML/MIN
[2018-01-22 12:22] LABS: PHOSPHORUS 3.1 MG/DL (2.3-4.5); POTASSIUM 4.8 MMOL/L (3.5-5.1)
[2018-01-22] MEDS: methylnaltrexone br 12mg/0.6ml inj***SubQ only SQ SCH (12:45)
[2018-01-22 13:45] LABS: PLATELET COUNT 36 X10'3 (140-440)
[2018-01-22 13:49] LABS: ANISOCYTOSIS 2+; LARGE PLATELETS FEW; NUCLEATED RED BLOOD CELLS 13 /100WBC (0-0); PLATELET ESTIMATE DECREASED; POLYCHROMASIA 2+; TOTAL CELLS COUNTED 100
[2018-01-22] MEDS ORDERED: LIDOcaine 1%/PF 5ML 10 MG/ML VIAL ONE (14:27)
[2018-01-22] MEDS ORDERED: heparin 1,000 UNITS/NS 500ml 500 ML ONE (14:27)
[2018-01-22] MEDS ORDERED: iohexol 300 MG/1 ML 50ml polymer ONE ×3 (14:27→21:42)
[2018-01-22] MEDS ORDERED: heparin 1,000 units/ml 10ml inj HE ONE ×2 (14:30)
[2018-01-22] MEDS: argatroban in NS 50mg/50ml 50 ML IV SCH ×3 (14:59→23:36)
[2018-01-22] MEDS ORDERED: ceFAZolin 1000mg inj ONE (16:39)
[2018-01-22] MEDS ORDERED: heparin 10,000 units/1 ML INJ ONE (16:39)
[2018-01-22] MEDS ORDERED: albumin (Human) 5% 250 ML IV solution IV STA (16:48)
[2018-01-22 17:24] LABS: BASOPHILS % (AUTO) 0.2 % (0-1); EOSINOPHILS # (AUTO) 0.2 X10'3 (0-0.9); EOSINOPHILS % (AUTO) 0.9 % (0-6); HEMATOCRIT 29.1 % (42.0-52.0); HEMOGLOBIN 10.1 g/dl (14.0-17.9); LYMPHOCYTES # (AUTO) 0.9 X10'3 (1.1-4.8); MEAN CORPUSCULAR HEMOGLOBIN 31.3 PG (27.0-31.0); MEAN CORPUSCULAR HGB CONC 34.5 % (33.0-36.5); MEAN CORPUSCULAR VOLUME 90.9 FL (78-98); MEAN PLATELET VOLUME 9.4 FL (7.4-10.4); MONOCYTES # (AUTO) 1.3 X10'3 (0-0.9); MONOCYTES % (AUTO) 7.4 % (2-12); NEUTROPHILS # (AUTO) 15.6 X10'3 (1.8-7.7); NEUTROPHILS % (AUTO) 86.5 % (42-75); RED BLOOD COUNT 3.21 X10'6 (4.70-6.10); RED CELL DISTRIBUTION WIDTH 17.8 % (11.5-14.5)
[2018-01-22 17:26] LABS: OXYGEN SATURATION (MIXED VEN) 43.8 % (60-80); PO2 MIXED VENOUS (TEMP COR) 27.5 mmHg (35-46)
[2018-01-22 17:35] LABS: ANION GAP 11 (8-16); BLOOD UREA NITROGEN 37 MG/DL (7-18); BUN/CREATININE RATIO 13.2 (5.4-32.0); CHLORIDE 103 MMOL/L (99-107); CREATININE 2.81 MG/DL (0.60-1.10); GLUCOSE 102 MG/DL (70-104); MAGNESIUM 2.1 MG/DL (1.5-2.4); SODIUM 137 MMOL/L (135-145); TOTAL CARBON DIOXIDE 23.4 MMOL/L (24-32); eGFR 23 ML/MIN
[2018-01-22 17:37] LABS: PHOSPHORUS 3.5 MG/DL (2.3-4.5); POTASSIUM 4.8 MMOL/L (3.5-5.1)
[2018-01-22 18:17] LABS: PLATELET COUNT 35 X10'3 (140-440); WHITE BLOOD COUNT 17.3 X10'3 (4.5-11.0)
[2018-01-22 18:57] LABS: INR > 9.0 INR
[2018-01-22] MEDS ORDERED: vancomycin 1,000mg inj IV SCH (20:00)
[2018-01-22] MEDS ORDERED: DOBUTamine/D5W 500mg/250ml premix IV ONE (20:39)
[2018-01-22] MEDS ORDERED: sevoflurane 250ml liquid IH ONE (20:39)
[2018-01-22] MEDS ORDERED: DOPamine/D5W 400mg/250ml bag IV ONE (20:39)
[2018-01-22] MEDS ORDERED: rocuronium 10mg/ml inj IV ONE (20:56)
[2018-01-22] MEDS ORDERED: fentaNYL /PF 50mcg/ml 5ml ampule ONE (21:34)
[2018-01-22 23:51] LABS: ABG BASE EXCESS -6.4 mmol/L (-2.0-3.0); ABG HCO3 18.4 mmol/L (22.0-26.0); ABG OXYGEN SATURATION 87.3 % (95-98); ABG PCO2 (T) 34.3 mmHg (35.0-48.0); ABG PH (T) 7.348 (7.350-7.450); ABG PO2 (T) 60.6 mmHg (83-108); FCOHb 0.3 % (0.5-1.5); FMetHb 0.3 % (0.3-1.12); FO2Hb 86.8 % (94-100); MINUTE VOLUME 10 L/min; PATIENT TEMPERATURE 37.2; PEEP 8 cm H2O; RESPIRATORY RATE 14 b/min; RESPIRATORY RATE (OBSERVED) 17 b/min; TIDAL VOLUME 600 mL; TOTAL HEMOGLOBIN 10.3 G/dl (14.0-18.0)
[2018-01-23] VITALS (30 sets, daily range): BP systolic 92–123; BP diastolic 37–56
[2018-01-23 00:08] LABS: BASOPHILS # (AUTO) 0.1 X10'3 (0-0.2); BASOPHILS % (AUTO) 0.5 % (0-1); EOSINOPHILS # (AUTO) 0.1 X10'3 (0-0.9); EOSINOPHILS % (AUTO) 0.7 % (0-6); HEMATOCRIT 28.3 % (42.0-52.0); HEMOGLOBIN 9.5 g/dl (14.0-17.9); LYMPHOCYTES # (AUTO) 0.7 X10'3 (1.1-4.8); LYMPHOCYTES % (AUTO) 3.6 % (21-51); MEAN CORPUSCULAR HEMOGLOBIN 30.8 PG (27.0-31.0); MEAN CORPUSCULAR HGB CONC 33.6 % (33.0-36.5); MEAN CORPUSCULAR VOLUME 91.7 FL (78-98); MEAN PLATELET VOLUME 9.3 FL (7.4-10.4); MONOCYTES % (AUTO) 5.1 % (2-12); NEUTROPHILS # (AUTO) 18.2 X10'3 (1.8-7.7); NEUTROPHILS % (AUTO) 90.1 % (42-75); RED BLOOD COUNT 3.08 X10'6 (4.70-6.10); RED CELL DISTRIBUTION WIDTH 17.5 % (11.5-14.5); WHITE BLOOD COUNT 20.2 X10'3 (4.5-11.0)
[2018-01-23 00:14] LABS: PLATELET COUNT 39 X10'3 (140-440)
[2018-01-23] MEDS: BICARB DIALYSIS W/CALCIUM SOL 5,000 ML HE SCH ×15 (00:18→20:08)
[2018-01-23 00:21] LABS: ALBUMIN 3.9 G/DL (3.4-5.0); ANION GAP 13 (8-16); BLOOD UREA NITROGEN 45 MG/DL (7-18); BUN/CREATININE RATIO 12.9 (5.4-32.0); CALCIUM 7.8 MG/DL (8.5-10.1); CHLORIDE 102 MMOL/L (99-107); CREATININE 3.49 MG/DL (0.60-1.10); GLUCOSE 109 MG/DL (70-104); MAGNESIUM 2.1 MG/DL (1.5-2.4); SODIUM 137 MMOL/L (135-145); TOTAL CARBON DIOXIDE 21.7 MMOL/L (24-32); eGFR 18 ML/MIN
[2018-01-23] MEDS ORDERED: albumin (Human) 5% 250 ML IV solution IV STA (00:23)
[2018-01-23 00:24] LABS: PHOSPHORUS 4.7 MG/DL (2.3-4.5); POTASSIUM 5.1 MMOL/L (3.5-5.1)
[2018-01-23] MEDS: piperacillin/tazo 3.375gm/50ml 50 ML IV SCH ×3 (00:24→16:14)
[2018-01-23] MEDS: sodium chloride 0.45% 1,000 ML IV SCH (00:24)
[2018-01-23] MEDS: propofol 1000mg/100ml bottle 100 ML IV PRN ×2 (00:24→22:38)
[2018-01-23 01:08] LABS: PROTHROMBIN TIME 96.8 SECONDS (9.0-12.0)
[2018-01-23 01:11] LABS: INR > 9.0 INR
[2018-01-23] MEDS: albumin (Human) 5% 250ml 250 ML IV PRN ×2 (01:12→10:31)
[2018-01-23] MEDS: DOPamine 400mg/D5W 250ml 250 ML IV PRN (02:44)
[2018-01-23] MEDS: DOBUTamine-DoBUTrex 500mg/D5W 250 ML IV SCH (02:44)
[2018-01-23] MEDS: VANCOMYCIN LEVEL IV SCH (03:00)
[2018-01-23 03:51] LABS: ABG BASE EXCESS -3.5 mmol/L (-2.0-3.0); ABG HCO3 21.1 mmol/L (22.0-26.0); ABG OXYGEN SATURATION 96.3 % (95-98); ABG PCO2 (T) 35.2 mmHg (35.0-48.0); ABG PH (T) 7.393 (7.350-7.450); ABG PO2 (T) 93.3 mmHg (83-108); FCOHb 0.3 % (0.5-1.5); FMetHb 0.3 % (0.3-1.12); FO2Hb 95.7 % (94-100); MINUTE VOLUME 10 L/min; PATIENT TEMPERATURE 36.5; PEEP 8 cm H2O; RESPIRATORY RATE 14 b/min; RESPIRATORY RATE (OBSERVED) 16 b/min; TIDAL VOLUME 600 mL; TOTAL HEMOGLOBIN 9.1 G/dl (14.0-18.0)
[2018-01-23] MEDS: argatroban in NS 50mg/50ml 50 ML IV SCH ×2 (04:19→08:07)
[2018-01-23 04:20] LABS: BASOPHILS # (AUTO) 0.1 X10'3 (0-0.2); BASOPHILS % (AUTO) 0.3 % (0-1); EOSINOPHILS # (AUTO) 0.1 X10'3 (0-0.9); EOSINOPHILS % (AUTO) 0.5 % (0-6); HEMATOCRIT 24.5 % (42.0-52.0); HEMOGLOBIN 8.3 g/dl (14.0-17.9); LYMPHOCYTES % (AUTO) 4.7 % (21-51); MEAN CORPUSCULAR HEMOGLOBIN 31.3 PG (27.0-31.0); MEAN CORPUSCULAR VOLUME 92.1 FL (78-98); MEAN PLATELET VOLUME 10.4 FL (7.4-10.4); MONOCYTES # (AUTO) 1.3 X10'3 (0-0.9); NEUTROPHILS # (AUTO) 18.6 X10'3 (1.8-7.7); NEUTROPHILS % (AUTO) 88.5 % (42-75); RED BLOOD COUNT 2.67 X10'6 (4.70-6.10); RED CELL DISTRIBUTION WIDTH 17.8 % (11.5-14.5)
[2018-01-23 04:25] LABS: PLATELET COUNT 44 X10'3 (140-440)
[2018-01-23 05:45] LABS: ANISOCYTOSIS 2+; NUCLEATED RED BLOOD CELLS 8 /100WBC (0-0); PLATELET ESTIMATE DECREASED; POLYCHROMASIA 1+; TOTAL CELLS COUNTED 100
[2018-01-23 06:20] LABS: PROTHROMBIN TIME 88.1 SECONDS (9.0-12.0)
[2018-01-23 06:32] LABS: INR > 9.0 INR
[2018-01-23 07:02] LABS: ALANINE AMINOTRANSFERASE 509 U/L (12-78); ALBUMIN 3.6 G/DL (3.4-5.0); ALKALINE PHOSPHATASE 61 IU/L (46-116); ANION GAP 12 (8-16); ASPARTATE AMINO TRANSFERASE 430 U/L (10-37); BILIRUBIN,TOTAL 6.4 MG/DL (0.1-1.0); BLOOD UREA NITROGEN 43 MG/DL (7-18); BUN/CREATININE RATIO 13.4 (5.4-32.0); CALCIUM 7.6 MG/DL (8.5-10.1); CHLORIDE 103 MMOL/L (99-107); CREATINE KINASE 587 U/L (39-308); CREATININE 3.22 MG/DL (0.60-1.10); GLUCOSE 116 MG/DL (70-104); SODIUM 137 MMOL/L (135-145); TOTAL CARBON DIOXIDE 22.2 MMOL/L (24-32); VANCOMYCIN,RANDOM 14.7 UG/ML; eGFR 20 ML/MIN
[2018-01-23 07:14] LABS: ALBUMIN/GLOBULIN RATIO 2.6 (1.1-1.5); PHOSPHORUS 4.4 MG/DL (2.3-4.5); POTASSIUM 5.2 MMOL/L (3.5-5.1)
[2018-01-23] MEDS: pantoprazole 40 MG vial IV SCH (07:56)
[2018-01-23] MEDS: atorvastatin 10mg tablet PO SCH (07:57)
[2018-01-23] MEDS: aspirin 325mg tablet, delayed-release (Ecotrin) PO SCH (07:57)
[2018-01-23] MEDS: docusate sodium 100mg/10ml UD cup PO SCH ×2 (07:57→20:00)
[2018-01-23] MEDS: lactobacillus rhamnosus 10,000 MMU CELLS/CAPSULE PO SCH ×2 (07:57→20:00)
[2018-01-23] MEDS: metoprolol tartrate 12.5mg (1/2 tablet) PO SCH ×2 (08:00→19:56)
[2018-01-23 09:02] LABS: HEMATOCRIT 23.2 % (42.0-52.0); MEAN CORPUSCULAR HEMOGLOBIN 31.4 PG (27.0-31.0); MEAN CORPUSCULAR HGB CONC 34.7 % (33.0-36.5); MEAN CORPUSCULAR VOLUME 90.6 FL (78-98); MEAN PLATELET VOLUME 10.1 FL (7.4-10.4); RED BLOOD COUNT 2.56 X10'6 (4.70-6.10); RED CELL DISTRIBUTION WIDTH 17.2 % (11.5-14.5)
[2018-01-23 09:17] LABS: WHITE BLOOD COUNT 16.9 X10'3 (4.5-11.0)
[2018-01-23 09:19] LABS: PLATELET COUNT 44 X10'3 (140-440)
[2018-01-23 09:21] LABS: ABG BASE EXCESS -5.1 mmol/L (-2.0-3.0); ABG HCO3 18.6 mmol/L (22.0-26.0); ABG OXYGEN SATURATION 98.7 % (95-98); ABG PCO2 (T) 29.4 mmHg (35.0-48.0); ABG PO2 (T) 183.7 mmHg (83-108); FCOHb 0.3 % (0.5-1.5); FMetHb 0.3 % (0.3-1.12); FO2Hb 98.1 % (94-100); MINUTE VOLUME 12 L/min; PEEP 8 cm H2O; RESPIRATORY RATE 14 b/min; RESPIRATORY RATE (OBSERVED) 18 b/min; TIDAL VOLUME 739 mL; TOTAL HEMOGLOBIN 8.5 G/dl (14.0-18.0)
[2018-01-23] MEDS ORDERED: vancomycin inj 1,250 MG in normal saline 250ml IV soln 250 ML IV ONE (12:05)
[2018-01-23 12:11] LABS: ABG HCO3 18.6 mmol/L (22.0-26.0); ABG OXYGEN SATURATION 94.5 % (95-98); ABG PCO2 (T) 33.1 mmHg (35.0-48.0); ABG PH (T) 7.368 (7.350-7.450); ABG PO2 (T) 83.4 mmHg (83-108); FCOHb 0.3 % (0.5-1.5); FMetHb 0.3 % (0.3-1.12); FO2Hb 93.9 % (94-100); MINUTE VOLUME 9 L/min; PEEP 8 cm H2O; RESPIRATORY RATE 14 b/min; RESPIRATORY RATE (OBSERVED) 15 b/min; TIDAL VOLUME 751 mL; TOTAL HEMOGLOBIN 8.1 G/dl (14.0-18.0)
[2018-01-23 12:27] LABS: BASOPHILS # (AUTO) 0.1 X10'3 (0-0.2); BASOPHILS % (AUTO) 0.3 % (0-1); EOSINOPHILS # (AUTO) 0.1 X10'3 (0-0.9); EOSINOPHILS % (AUTO) 0.4 % (0-6); HEMATOCRIT 22.5 % (42.0-52.0); HEMOGLOBIN 7.7 g/dl (14.0-17.9); LYMPHOCYTES # (AUTO) 0.8 X10'3 (1.1-4.8); LYMPHOCYTES % (AUTO) 4.1 % (21-51); MEAN CORPUSCULAR HEMOGLOBIN 31.2 PG (27.0-31.0); MEAN CORPUSCULAR HGB CONC 34.2 % (33.0-36.5); MEAN PLATELET VOLUME 10.6 FL (7.4-10.4); MONOCYTES % (AUTO) 5.5 % (2-12); NEUTROPHILS # (AUTO) 16.6 X10'3 (1.8-7.7); NEUTROPHILS % (AUTO) 89.7 % (42-75); RED BLOOD COUNT 2.47 X10'6 (4.70-6.10); RED CELL DISTRIBUTION WIDTH 17.5 % (11.5-14.5)
[2018-01-23 12:34] LABS: PLATELET COUNT 49 X10'3 (140-440)
[2018-01-23 12:36] LABS: ALBUMIN 3.6 G/DL (3.4-5.0); ANION GAP 15 (8-16); BLOOD UREA NITROGEN 42 MG/DL (7-18); BUN/CREATININE RATIO 13.5 (5.4-32.0); CALCIUM 7.7 MG/DL (8.5-10.1); CHLORIDE 103 MMOL/L (99-107); GLUCOSE 111 MG/DL (70-104); PHOSPHORUS 5.1 MG/DL (2.3-4.5); POTASSIUM 5.6 MMOL/L (3.5-5.1); SODIUM 138 MMOL/L (135-145); eGFR 21 ML/MIN
[2018-01-23 12:44] LABS: WHITE BLOOD COUNT 17.6 X10'3 (4.5-11.0)
[2018-01-23 12:59] LABS: ANISOCYTOSIS 1+; NUCLEATED RED BLOOD CELLS 16 /100WBC (0-0); PLATELET ESTIMATE DECREASED; TOTAL CELLS COUNTED 100
[2018-01-23 13:00] LABS: POLYCHROMASIA 3+
[2018-01-23] MEDS: FENTANYL-0.9 % NACL/PF 100 ML IV PRN ×2 (13:45→22:38)
[2018-01-23 16:54] LABS: BASOPHILS % (AUTO) 0 % (0-1); EOSINOPHILS # (AUTO) 0.1 X10'3 (0-0.9); EOSINOPHILS % (AUTO) 0.4 % (0-6); HEMATOCRIT 25.8 % (42.0-52.0); LYMPHOCYTES # (AUTO) 0.8 X10'3 (1.1-4.8); MEAN CORPUSCULAR HEMOGLOBIN 31.3 PG (27.0-31.0); MEAN CORPUSCULAR HGB CONC 34.8 % (33.0-36.5); MEAN CORPUSCULAR VOLUME 89.8 FL (78-98); MEAN PLATELET VOLUME 9.4 FL (7.4-10.4); MONOCYTES # (AUTO) 1.4 X10'3 (0-0.9); MONOCYTES % (AUTO) 8.3 % (2-12); NEUTROPHILS # (AUTO) 14.6 X10'3 (1.8-7.7); NEUTROPHILS % (AUTO) 86.3 % (42-75); RED BLOOD COUNT 2.87 X10'6 (4.70-6.10); RED CELL DISTRIBUTION WIDTH 16.9 % (11.5-14.5)
[2018-01-23 17:09] LABS: ALBUMIN 3.6 G/DL (3.4-5.0); ANION GAP 13 (8-16); BLOOD UREA NITROGEN 42 MG/DL (7-18); BUN/CREATININE RATIO 15.4 (5.4-32.0); CALCIUM 7.7 MG/DL (8.5-10.1); CHLORIDE 103 MMOL/L (99-107); CREATININE 2.72 MG/DL (0.60-1.10); GLUCOSE 136 MG/DL (70-104); SODIUM 137 MMOL/L (135-145); TOTAL CARBON DIOXIDE 20.9 MMOL/L (24-32); eGFR 24 ML/MIN
[2018-01-23 17:10] LABS: PHOSPHORUS 4.5 MG/DL (2.3-4.5); POTASSIUM 5.4 MMOL/L (3.5-5.1)
[2018-01-23 17:14] LABS: PLATELET COUNT 50 X10'3 (140-440)
[2018-01-23 17:30] LABS: OXYGEN SATURATION (MIXED VEN) 37.8 % (60-80); PO2 MIXED VENOUS (TEMP COR) 24.6 mmHg (35-46)
[2018-01-23 17:30] LABS: OXYGEN SATURATION (MIXED VEN) 37.9 % (60-80); PO2 MIXED VENOUS (TEMP COR) 23.5 mmHg (35-46)
[2018-01-23] MEDS: LORazepam 2 mg/ml vial IV PRN (20:57)
[2018-01-23 23:05] LABS: HEMATOCRIT 25.1 % (42.0-52.0); HEMOGLOBIN 8.5 g/dl (14.0-17.9); MEAN CORPUSCULAR HEMOGLOBIN 30.4 PG (27.0-31.0); MEAN CORPUSCULAR HGB CONC 33.9 % (33.0-36.5); MEAN CORPUSCULAR VOLUME 89.6 FL (78-98); MEAN PLATELET VOLUME 11.9 FL (7.4-10.4); PLATELET COUNT 67 X10'3 (140-440); RED CELL DISTRIBUTION WIDTH 17.8 % (11.5-14.5); WHITE BLOOD COUNT 15.7 X10'3 (4.5-11.0)
[2018-01-23 23:17] LABS: ALBUMIN 3.3 G/DL (3.4-5.0); ANION GAP 13 (8-16); BLOOD UREA NITROGEN 44 MG/DL (7-18); BUN/CREATININE RATIO 16.4 (5.4-32.0); CALCIUM 7.9 MG/DL (8.5-10.1); CHLORIDE 103 MMOL/L (99-107); CREATININE 2.68 MG/DL (0.60-1.10); GLUCOSE 139 MG/DL (70-104); MAGNESIUM 2.9 MG/DL (1.5-2.4); SODIUM 137 MMOL/L (135-145); TOTAL CARBON DIOXIDE 21.5 MMOL/L (24-32); eGFR 25 ML/MIN
[2018-01-23 23:31] LABS: PHOSPHORUS 4.3 MG/DL (2.3-4.5)
[2018-01-23 23:42] LABS: ANISOCYTOSIS 2+; NUCLEATED RED BLOOD CELLS 17 /100WBC (0-0); PLATELET ESTIMATE DECREASED; TOTAL CELLS COUNTED 100
[2018-01-23 23:43] LABS: POLYCHROMASIA FEW
[2018-01-24] VITALS (25 sets, daily range): BP systolic 102–145; BP diastolic 34–57
[2018-01-24] MEDS: piperacillin/tazo 3.375gm/50ml 50 ML IV SCH ×3 (00:08→16:19)
[2018-01-24] MEDS: DOBUTamine-DoBUTrex 500mg/D5W 250 ML IV SCH (02:18)
[2018-01-24] MEDS: DOPamine 400mg/D5W 250ml 250 ML IV PRN (02:18)
[2018-01-24] MEDS: VANCOMYCIN LEVEL IV SCH (03:00)
[2018-01-24 03:41] LABS: ABG BASE EXCESS -4.8 mmol/L (-2.0-3.0); ABG HCO3 18.4 mmol/L (22.0-26.0); ABG OXYGEN SATURATION 93.9 % (95-98); ABG PCO2 (T) 27.3 mmHg (35.0-48.0); ABG PH (T) 7.447 (7.350-7.450); ABG PO2 (T) 76.2 mmHg (83-108); FCOHb 0.3 % (0.5-1.5); FMetHb 0.3 % (0.3-1.12); FO2Hb 93.3 % (94-100); MINUTE VOLUME 10 L/min; PATIENT TEMPERATURE 36.9; PEEP 6 cm H2O; RESPIRATORY RATE 14 b/min; RESPIRATORY RATE (OBSERVED) 15 b/min; TIDAL VOLUME 500 mL; TOTAL HEMOGLOBIN 8.8 G/dl (14.0-18.0)
[2018-01-24 03:56] LABS: OXYGEN SATURATION (MIXED VEN) 49.5 % (60-80); PO2 MIXED VENOUS (TEMP COR) 31.9 mmHg (35-46)
[2018-01-24] MEDS: BICARB DIALYSIS W/CALCIUM SOL 5,000 ML HE SCH ×11 (04:06→19:29)
[2018-01-24 05:10] LABS: BLOOD UREA NITROGEN 42 MG/DL (7-18); BUN/CREATININE RATIO 16.3 (5.4-32.0); CHLORIDE 103 MMOL/L (99-107); CREATININE 2.57 MG/DL (0.60-1.10); GLUCOSE 130 MG/DL (70-104); INR 3.4 INR; PARTIAL THROMBOPLASTIN TIME 59 SECONDS (22-32); PROTHROMBIN TIME 33.4 SECONDS (9.0-12.0); TOTAL CARBON DIOXIDE 24.1 MMOL/L (24-32)
[2018-01-24 05:11] LABS: ALANINE AMINOTRANSFERASE 426 U/L (12-78); ALBUMIN 3.1 G/DL (3.4-5.0); ALKALINE PHOSPHATASE 64 IU/L (46-116); ASPARTATE AMINO TRANSFERASE 308 U/L (10-37); BILIRUBIN,TOTAL 7.5 MG/DL (0.1-1.0); CALCIUM 7.9 MG/DL (8.5-10.1); MAGNESIUM 2.6 MG/DL (1.5-2.4); VANCOMYCIN,RANDOM 16.4 UG/ML; eGFR 26 ML/MIN
[2018-01-24 05:13] LABS: BASOPHILS # (AUTO) 0.2 X10'3 (0-0.2); BASOPHILS % (AUTO) 0.8 % (0-1); EOSINOPHILS # (AUTO) 0.1 X10'3 (0-0.9); EOSINOPHILS % (AUTO) 0.4 % (0-6); HEMATOCRIT 24.4 % (42.0-52.0); HEMOGLOBIN 8.6 g/dl (14.0-17.9); LYMPHOCYTES # (AUTO) 1.2 X10'3 (1.1-4.8); LYMPHOCYTES % (AUTO) 5.3 % (21-51); MEAN CORPUSCULAR HEMOGLOBIN 31.6 PG (27.0-31.0); MEAN CORPUSCULAR HGB CONC 35.1 % (33.0-36.5); MEAN PLATELET VOLUME 10.9 FL (7.4-10.4); MONOCYTES % (AUTO) 9.1 % (2-12); NEUTROPHILS # (AUTO) 18.6 X10'3 (1.8-7.7); NEUTROPHILS % (AUTO) 84.4 % (42-75); PLATELET COUNT 81 X10'3 (140-440); RED BLOOD COUNT 2.71 X10'6 (4.70-6.10); RED CELL DISTRIBUTION WIDTH 16.1 % (11.5-14.5)
[2018-01-24 05:21] LABS: WHITE BLOOD COUNT 22.1 X10'3 (4.5-11.0)
[2018-01-24 05:33] LABS: ALBUMIN/GLOBULIN RATIO 1.3 (1.1-1.5); PHOSPHORUS 4.5 MG/DL (2.3-4.5); POTASSIUM 5.5 MMOL/L (3.5-5.1); TOTAL PROTEIN 5.5 G/DL (6.4-8.2)
[2018-01-24 05:36] LABS: ANION GAP 10 (8-16); SODIUM 137 MMOL/L (135-145)
[2018-01-24 05:42] LABS: ANISOCYTOSIS 1+; NUCLEATED RED BLOOD CELLS 24 /100WBC (0-0); PLATELET ESTIMATE DECREASED; TOTAL CELLS COUNTED 100
[2018-01-24 05:43] LABS: LARGE PLATELETS FEW; POLYCHROMASIA 1+; TOXIC GRANULATION 1+
[2018-01-24] MEDS: FENTANYL-0.9 % NACL/PF 100 ML IV PRN ×2 (08:54→17:51)
[2018-01-24] MEDS: propofol 1000mg/100ml bottle 100 ML IV PRN ×2 (08:54→21:31)
[2018-01-24] MEDS: pantoprazole 40 MG vial IV SCH (08:55)
[2018-01-24] MEDS: methylnaltrexone br 12mg/0.6ml inj***SubQ only SQ SCH (08:55)
[2018-01-24] MEDS: lactobacillus rhamnosus 10,000 MMU CELLS/CAPSULE PO SCH ×2 (08:55→21:21)
[2018-01-24] MEDS: atorvastatin 10mg tablet PO SCH (08:55)
[2018-01-24] MEDS: metoprolol tartrate 12.5mg (1/2 tablet) PO SCH ×2 (08:55→20:00)
[2018-01-24] MEDS: docusate sodium 100mg/10ml UD cup PO SCH ×2 (08:55→21:21)
[2018-01-24] MEDS: aspirin 325mg tablet, delayed-release (Ecotrin) PO SCH (08:55)
[2018-01-24 12:59] LABS: HEMATOCRIT 23.1 % (42.0-52.0); HEMOGLOBIN 7.9 g/dl (14.0-17.9); MEAN CORPUSCULAR HEMOGLOBIN 30.6 PG (27.0-31.0); MEAN CORPUSCULAR HGB CONC 34.1 % (33.0-36.5); MEAN CORPUSCULAR VOLUME 89.8 FL (78-98); MEAN PLATELET VOLUME 11.2 FL (7.4-10.4); PLATELET COUNT 92 X10'3 (140-440); RED BLOOD COUNT 2.57 X10'6 (4.70-6.10); RED CELL DISTRIBUTION WIDTH 17.1 % (11.5-14.5); WHITE BLOOD COUNT 18.3 X10'3 (4.5-11.0)
[2018-01-24 13:11] LABS: ANISOCYTOSIS 1+; NUCLEATED RED BLOOD CELLS 13 /100WBC (0-0); PLATELET ESTIMATE DECREASED; TOTAL CELLS COUNTED 100
[2018-01-24 13:12] LABS: LARGE PLATELETS FEW; POLYCHROMASIA 2+
[2018-01-24 13:15] LABS: ALBUMIN 3.1 G/DL (3.4-5.0); ANION GAP 10 (8-16); BLOOD UREA NITROGEN 43 MG/DL (7-18); BUN/CREATININE RATIO 16.5 (5.4-32.0); CALCIUM 7.7 MG/DL (8.5-10.1); CHLORIDE 103 MMOL/L (99-107); CREATININE 2.61 MG/DL (0.60-1.10); GLUCOSE 134 MG/DL (70-104); MAGNESIUM 2.3 MG/DL (1.5-2.4); SODIUM 136 MMOL/L (135-145); TOTAL CARBON DIOXIDE 22.8 MMOL/L (24-32); eGFR 25 ML/MIN
[2018-01-24 13:16] LABS: PHOSPHORUS 4.1 MG/DL (2.3-4.5)
[2018-01-24 18:05] LABS: BASOPHILS # (AUTO) 0.1 X10'3 (0-0.2); BASOPHILS % (AUTO) 0.6 % (0-1); EOSINOPHILS # (AUTO) 0.2 X10'3 (0-0.9); EOSINOPHILS % (AUTO) 0.9 % (0-6); HEMATOCRIT 22.4 % (42.0-52.0); HEMOGLOBIN 7.5 g/dl (14.0-17.9); LYMPHOCYTES # (AUTO) 1.3 X10'3 (1.1-4.8); LYMPHOCYTES % (AUTO) 6.6 % (21-51); MEAN CORPUSCULAR HEMOGLOBIN 30.6 PG (27.0-31.0); MEAN CORPUSCULAR HGB CONC 33.6 % (33.0-36.5); MEAN CORPUSCULAR VOLUME 91.1 FL (78-98); MEAN PLATELET VOLUME 9.9 FL (7.4-10.4); MONOCYTES # (AUTO) 1.8 X10'3 (0-0.9); MONOCYTES % (AUTO) 9.1 % (2-12); NEUTROPHILS # (AUTO) 16.2 X10'3 (1.8-7.7); NEUTROPHILS % (AUTO) 82.8 % (42-75); PLATELET COUNT 84 X10'3 (140-440); RED BLOOD COUNT 2.46 X10'6 (4.70-6.10); RED CELL DISTRIBUTION WIDTH 17.5 % (11.5-14.5)
[2018-01-24 18:16] LABS: ALBUMIN 2.9 G/DL (3.4-5.0); ANION GAP 11 (8-16); BLOOD UREA NITROGEN 42 MG/DL (7-18); BUN/CREATININE RATIO 16.1 (5.4-32.0); CALCIUM 7.9 MG/DL (8.5-10.1); CHLORIDE 103 MMOL/L (99-107); CREATININE 2.61 MG/DL (0.60-1.10); GLUCOSE 128 MG/DL (70-104); MAGNESIUM 2.3 MG/DL (1.5-2.4); SODIUM 138 MMOL/L (135-145); TOTAL CARBON DIOXIDE 23.6 MMOL/L (24-32); eGFR 25 ML/MIN
[2018-01-24 18:17] LABS: PHOSPHORUS 3.6 MG/DL (2.3-4.5); POTASSIUM 4.9 MMOL/L (3.5-5.1)
[2018-01-24 18:19] LABS: WHITE BLOOD COUNT 16.9 X10'3 (4.5-11.0)
[2018-01-24 22:57] LABS: BASOPHILS % (AUTO) 0 % (0-1); EOSINOPHILS # (AUTO) 0.2 X10'3 (0-0.9); HEMOGLOBIN 7.4 g/dl (14.0-17.9); MEAN CORPUSCULAR HEMOGLOBIN 31.1 PG (27.0-31.0); MEAN CORPUSCULAR HGB CONC 34.6 % (33.0-36.5); MEAN PLATELET VOLUME 9.2 FL (7.4-10.4); MONOCYTES # (AUTO) 1.3 X10'3 (0-0.9); MONOCYTES % (AUTO) 8.3 % (2-12); NEUTROPHILS # (AUTO) 13.6 X10'3 (1.8-7.7); NEUTROPHILS % (AUTO) 84.7 % (42-75); PLATELET COUNT 81 X10'3 (140-440); RED CELL DISTRIBUTION WIDTH 16.9 % (11.5-14.5)
[2018-01-24 23:10] LABS: ALBUMIN 2.9 G/DL (3.4-5.0); ANION GAP 9 (8-16); BLOOD UREA NITROGEN 41 MG/DL (7-18); BUN/CREATININE RATIO 17.8 (5.4-32.0); CALCIUM 7.9 MG/DL (8.5-10.1); CHLORIDE 104 MMOL/L (99-107); GLUCOSE 124 MG/DL (70-104); MAGNESIUM 2.3 MG/DL (1.5-2.4); SODIUM 137 MMOL/L (135-145); TOTAL CARBON DIOXIDE 24.4 MMOL/L (24-32); eGFR 29 ML/MIN
[2018-01-24 23:19] LABS: HEMATOCRIT 21.6 % (42.0-52.0)
[2018-01-24 23:25] LABS: PHOSPHORUS 3.9 MG/DL (2.3-4.5)
[2018-01-25] VITALS (32 sets, daily range): BP systolic 86–160; BP diastolic 34–64
[2018-01-25] MEDS: piperacillin/tazo 3.375gm/50ml 50 ML IV SCH ×3 (00:28→17:48)
[2018-01-25] MEDS: FENTANYL-0.9 % NACL/PF 100 ML IV PRN ×2 (00:51→19:37)
[2018-01-25] MEDS: BICARB DIALYSIS W/CALCIUM SOL 5,000 ML HE SCH ×4 (02:24→10:54)
[2018-01-25] MEDS: VANCOMYCIN LEVEL IV SCH (02:26)
[2018-01-25 03:21] LABS: ABG BASE EXCESS -2.8 mmol/L (-2.0-3.0); ABG HCO3 21.7 mmol/L (22.0-26.0); ABG OXYGEN SATURATION 97.1 % (95-98); ABG PCO2 (T) 34.6 mmHg (35.0-48.0); ABG PH (T) 7.412 (7.350-7.450); ABG PO2 (T) 103.4 mmHg (83-108); FCOHb 0.3 % (0.5-1.5); FMetHb 0.3 % (0.3-1.12); FO2Hb 96.5 % (94-100); MINUTE VOLUME 9 L/min; PEEP 6 cm H2O; RESPIRATORY RATE 14 b/min; RESPIRATORY RATE (OBSERVED) 15 b/min; TIDAL VOLUME 500 mL; TOTAL HEMOGLOBIN 8.3 G/dl (14.0-18.0)
[2018-01-25] MEDS: DOBUTamine-DoBUTrex 500mg/D5W 250 ML IV SCH (04:32)
[2018-01-25] MEDS: sodium chloride 0.45% 1,000 ML IV SCH (04:33)
[2018-01-25] MEDS: propofol 1000mg/100ml bottle 100 ML IV PRN ×2 (04:33→15:26)
[2018-01-25 05:21] LABS: BASOPHILS # (AUTO) 0.1 X10'3 (0-0.2); BASOPHILS % (AUTO) 0.4 % (0-1); EOSINOPHILS # (AUTO) 0.3 X10'3 (0-0.9); EOSINOPHILS % (AUTO) 1.5 % (0-6); HEMATOCRIT 24.1 % (42.0-52.0); HEMOGLOBIN 8.4 g/dl (14.0-17.9); LYMPHOCYTES # (AUTO) 1.1 X10'3 (1.1-4.8); LYMPHOCYTES % (AUTO) 5.2 % (21-51); MEAN CORPUSCULAR HEMOGLOBIN 31.4 PG (27.0-31.0); MEAN CORPUSCULAR HGB CONC 35.1 % (33.0-36.5); MEAN CORPUSCULAR VOLUME 89.6 FL (78-98); MEAN PLATELET VOLUME 10.6 FL (7.4-10.4); MONOCYTES # (AUTO) 1.5 X10'3 (0-0.9); MONOCYTES % (AUTO) 7.4 % (2-12); NEUTROPHILS # (AUTO) 17.4 X10'3 (1.8-7.7); NEUTROPHILS % (AUTO) 85.5 % (42-75); PLATELET COUNT 89 X10'3 (140-440); RED BLOOD COUNT 2.69 X10'6 (4.70-6.10); RED CELL DISTRIBUTION WIDTH 15.7 % (11.5-14.5); WHITE BLOOD COUNT 20.4 X10'3 (4.5-11.0)
[2018-01-25 05:26] LABS: INR 1.5 INR; PROTHROMBIN TIME 15.2 SECONDS (9.0-12.0)
[2018-01-25 05:35] LABS: ALANINE AMINOTRANSFERASE 361 U/L (12-78); ALBUMIN 2.9 G/DL (3.4-5.0); ALKALINE PHOSPHATASE 64 IU/L (46-116); ASPARTATE AMINO TRANSFERASE 229 U/L (10-37); BILIRUBIN,TOTAL 7.7 MG/DL (0.1-1.0); BLOOD UREA NITROGEN 41 MG/DL (7-18); CALCIUM 7.8 MG/DL (8.5-10.1); CHLORIDE 104 MMOL/L (99-107); CREATININE 2.41 MG/DL (0.60-1.10); GLUCOSE 120 MG/DL (70-104); MAGNESIUM 2.2 MG/DL (1.5-2.4); PREALBUMIN 11.3 MG/DL (19-36); TOTAL CARBON DIOXIDE 24.5 MMOL/L (24-32); VANCOMYCIN,RANDOM 8.5 UG/ML; eGFR 28 ML/MIN
[2018-01-25 05:43] LABS: ANISOCYTOSIS 1+; NUCLEATED RED BLOOD CELLS 6 /100WBC (0-0); PLATELET ESTIMATE DECREASED; POLYCHROMASIA 1+; TOTAL CELLS COUNTED 100; TOXIC GRANULATION 1+
[2018-01-25 05:44] LABS: TARGET CELLS FEW
[2018-01-25 05:55] LABS: ALBUMIN/GLOBULIN RATIO 1.5 (1.1-1.5); PHOSPHORUS 3.2 MG/DL (2.3-4.5); POTASSIUM 4.6 MMOL/L (3.5-5.1); TOTAL PROTEIN 4.9 G/DL (6.4-8.2)
[2018-01-25 05:58] LABS: ANION GAP 10 (8-16); SODIUM 138 MMOL/L (135-145)
[2018-01-25] MEDS ORDERED: vancomycin inj 1,250 MG in normal saline 250ml IV soln 250 ML IV ONE (08:00)
[2018-01-25] MEDS: aspirin 325mg tablet, delayed-release (Ecotrin) PO SCH (08:00)
[2018-01-25] MEDS: pantoprazole 40 MG vial IV SCH (08:45)
[2018-01-25] MEDS: atorvastatin 10mg tablet PO SCH (08:45)
[2018-01-25] MEDS: docusate sodium 100mg/10ml UD cup PO SCH ×2 (08:45→19:37)
[2018-01-25] MEDS: metoprolol tartrate 12.5mg (1/2 tablet) PO SCH ×2 (08:45→19:36)
[2018-01-25] MEDS: lactobacillus rhamnosus 10,000 MMU CELLS/CAPSULE PO SCH ×2 (08:45→19:37)
[2018-01-25] MEDS ORDERED: methylnaltrexone br 12mg/0.6ml inj***SubQ only SQ SCH (10:35)
[2018-01-25] MEDS: bicarb dialysis sol NO calcium 5,000 ML HE SCH ×6 (10:55→20:43)
[2018-01-25 11:49] LABS: BASOPHILS # (AUTO) 0.2 X10'3 (0-0.2); EOSINOPHILS # (AUTO) 0.3 X10'3 (0-0.9); EOSINOPHILS % (AUTO) 1.3 % (0-6); HEMATOCRIT 22.3 % (42.0-52.0); HEMOGLOBIN 7.9 g/dl (14.0-17.9); LYMPHOCYTES # (AUTO) 1.2 X10'3 (1.1-4.8); LYMPHOCYTES % (AUTO) 5.1 % (21-51); MEAN CORPUSCULAR HEMOGLOBIN 32.1 PG (27.0-31.0); MEAN CORPUSCULAR HGB CONC 35.5 % (33.0-36.5); MEAN CORPUSCULAR VOLUME 90.4 FL (78-98); MEAN PLATELET VOLUME 9.4 FL (7.4-10.4); MONOCYTES # (AUTO) 1.8 X10'3 (0-0.9); MONOCYTES % (AUTO) 7.5 % (2-12); NEUTROPHILS # (AUTO) 20.7 X10'3 (1.8-7.7); NEUTROPHILS % (AUTO) 85.1 % (42-75); PLATELET COUNT 90 X10'3 (140-440); RED BLOOD COUNT 2.47 X10'6 (4.70-6.10); RED CELL DISTRIBUTION WIDTH 16.1 % (11.5-14.5)
[2018-01-25 12:07] LABS: ALBUMIN 2.8 G/DL (3.4-5.0); ANION GAP 9 (8-16); BLOOD UREA NITROGEN 38 MG/DL (7-18); CALCIUM 7.5 MG/DL (8.5-10.1); CHLORIDE 104 MMOL/L (99-107); CREATININE 2.11 MG/DL (0.60-1.10); GLUCOSE 122 MG/DL (70-104); SODIUM 138 MMOL/L (135-145); TOTAL CARBON DIOXIDE 24.9 MMOL/L (24-32); eGFR 32 ML/MIN
[2018-01-25 12:09] LABS: PHOSPHORUS 2.1 MG/DL (2.3-4.5); POTASSIUM 4.6 MMOL/L (3.5-5.1)
[2018-01-25 13:29] LABS: WHITE BLOOD COUNT 21.2 X10'3 (4.5-11.0)
[2018-01-25 13:39] LABS: NUCLEATED RED BLOOD CELLS 14 /100WBC (0-0); TOTAL CELLS COUNTED 100
[2018-01-25 13:41] LABS: ANISOCYTOSIS 1+; PLATELET ESTIMATE DECREASED; POLYCHROMASIA 2+; SMUDGE CELLS 3+
[2018-01-25 13:42] LABS: SCHISTOCYTES FEW
[2018-01-25] MEDS: fondaparinux 2.5 MG/0.5 ML syringe SUBCUT SCH (15:24)
[2018-01-25] MEDS: dexmedetomidin/NS 400mcg/100ml 100 ML IV SCH (15:25)
[2018-01-25] MEDS ORDERED: NORepinephrine 8mg/ 250ml NS 250 ML IV PRN (17:25)
[2018-01-25 18:44] LABS: BASOPHILS % (AUTO) 0.1 % (0-1); EOSINOPHILS # (AUTO) 0.1 X10'3 (0-0.9); EOSINOPHILS % (AUTO) 0.4 % (0-6); HEMOGLOBIN 7.1 g/dl (14.0-17.9); LYMPHOCYTES # (AUTO) 1.1 X10'3 (1.1-4.8); LYMPHOCYTES % (AUTO) 5.9 % (21-51); MEAN CORPUSCULAR HEMOGLOBIN 31.2 PG (27.0-31.0); MEAN CORPUSCULAR HGB CONC 34.6 % (33.0-36.5); MEAN CORPUSCULAR VOLUME 90.2 FL (78-98); MEAN PLATELET VOLUME 10.2 FL (7.4-10.4); MONOCYTES % (AUTO) 5.3 % (2-12); NEUTROPHILS # (AUTO) 16.7 X10'3 (1.8-7.7); NEUTROPHILS % (AUTO) 88.3 % (42-75); PLATELET COUNT 82 X10'3 (140-440); RED BLOOD COUNT 2.27 X10'6 (4.70-6.10); RED CELL DISTRIBUTION WIDTH 17.1 % (11.5-14.5); WHITE BLOOD COUNT 18.9 X10'3 (4.5-11.0)
[2018-01-25 18:55] LABS: ALBUMIN 2.8 G/DL (3.4-5.0); ANION GAP 11 (8-16); BLOOD UREA NITROGEN 38 MG/DL (7-18); BUN/CREATININE RATIO 16.7 (5.4-32.0); CALCIUM 6.1 MG/DL (8.5-10.1); CHLORIDE 102 MMOL/L (99-107); CREATININE 2.28 MG/DL (0.60-1.10); GLUCOSE 123 MG/DL (70-104); MAGNESIUM 2.3 MG/DL (1.5-2.4); SODIUM 134 MMOL/L (135-145); TOTAL CARBON DIOXIDE 21.4 MMOL/L (24-32); eGFR 30 ML/MIN
[2018-01-25 18:57] LABS: POTASSIUM 4.6 MMOL/L (3.5-5.1)
[2018-01-25 19:02] LABS: PHOSPHORUS 2.1 MG/DL (2.3-4.5)
[2018-01-25 19:28] LABS: HEMATOCRIT 20.5 % (42.0-52.0)
[2018-01-25 19:33] LABS: ANISOCYTOSIS 1+; NUCLEATED RED BLOOD CELLS 11 /100WBC (0-0); PLATELET ESTIMATE DECREASED; POLYCHROMASIA 2+; SPHEROCYTES 1+; TARGET CELLS 1+; TOTAL CELLS COUNTED 100
[2018-01-25] MEDS: calcium chloride inj. 1,000 MG in normal saline 100ml IV soln 100 ML IV PRN (20:14)
[2018-01-25 22:56] LABS: ALBUMIN 2.7 G/DL (3.4-5.0); ANION GAP 10 (8-16); BLOOD UREA NITROGEN 36 MG/DL (7-18); BUN/CREATININE RATIO 16.5 (5.4-32.0); CALCIUM 6.1 MG/DL (8.5-10.1); CHLORIDE 102 MMOL/L (99-107); CREATININE 2.18 MG/DL (0.60-1.10); MAGNESIUM 2.3 MG/DL (1.5-2.4); SODIUM 133 MMOL/L (135-145); eGFR 31 ML/MIN
[2018-01-25 22:58] LABS: GLUCOSE 132 MG/DL (70-104); PHOSPHORUS 2.8 MG/DL (2.3-4.5); POTASSIUM 4.9 MMOL/L (3.5-5.1)
[2018-01-26] VITALS (27 sets, daily range): BP systolic 77–139; BP diastolic 36–62
[2018-01-26] MEDS: bicarb dialysis sol NO calcium 5,000 ML HE SCH ×9 (00:15→15:25)
[2018-01-26] MEDS: propofol 1000mg/100ml bottle 100 ML IV PRN (00:16)
[2018-01-26] MEDS: dexmedetomidin/NS 400mcg/100ml 100 ML IV SCH ×2 (00:30→05:14)
[2018-01-26] MEDS: calcium chloride inj. 1,000 MG in normal saline 100ml IV soln 100 ML IV PRN (00:44)
[2018-01-26] MEDS: DOBUTamine-DoBUTrex 500mg/D5W 250 ML IV SCH (01:30)
[2018-01-26] MEDS: piperacillin/tazo 3.375gm/50ml 50 ML IV SCH ×2 (01:30→08:32)
[2018-01-26 02:11] LABS: BASOPHILS % (AUTO) 0 % (0-1); EOSINOPHILS # (AUTO) 0.2 X10'3 (0-0.9); HEMATOCRIT 26.4 % (42.0-52.0); LYMPHOCYTES # (AUTO) 1.3 X10'3 (1.1-4.8); LYMPHOCYTES % (AUTO) 5.9 % (21-51); MEAN CORPUSCULAR HEMOGLOBIN 30.6 PG (27.0-31.0); MEAN CORPUSCULAR HGB CONC 33.9 % (33.0-36.5); MEAN CORPUSCULAR VOLUME 90.3 FL (78-98); MEAN PLATELET VOLUME 10.3 FL (7.4-10.4); MONOCYTES # (AUTO) 1.1 X10'3 (0-0.9); NEUTROPHILS # (AUTO) 19.5 X10'3 (1.8-7.7); NEUTROPHILS % (AUTO) 88.1 % (42-75); RED BLOOD COUNT 2.92 X10'6 (4.70-6.10); WHITE BLOOD COUNT 22.2 X10'3 (4.5-11.0)
[2018-01-26 02:17] LABS: PLATELET COUNT 81 X10'3 (140-440)
[2018-01-26 02:23] LABS: INR 1.3 INR; PROTHROMBIN TIME 12.9 SECONDS (9.0-12.0)
[2018-01-26] MEDS: FENTANYL-0.9 % NACL/PF 100 ML IV PRN (02:41)
[2018-01-26 02:51] LABS: ALANINE AMINOTRANSFERASE 323 U/L (12-78); ALBUMIN 2.8 G/DL (3.4-5.0); ALKALINE PHOSPHATASE 91 IU/L (46-116); ANION GAP 11 (8-16); BILIRUBIN,TOTAL 9.9 MG/DL (0.1-1.0); BLOOD UREA NITROGEN 35 MG/DL (7-18); BUN/CREATININE RATIO 16.1 (5.4-32.0); CALCIUM 6.6 MG/DL (8.5-10.1); CHLORIDE 100 MMOL/L (99-107); CREATININE 2.17 MG/DL (0.60-1.10); SODIUM 130 MMOL/L (135-145); TOTAL CARBON DIOXIDE 19.1 MMOL/L (24-32); eGFR 31 ML/MIN
[2018-01-26 02:53] LABS: ALBUMIN/GLOBULIN RATIO 1.3 (1.1-1.5); ASPARTATE AMINO TRANSFERASE 224 U/L (10-37); GLUCOSE 126 MG/DL (70-104); POTASSIUM 4.8 MMOL/L (3.5-5.1); TOTAL PROTEIN 4.9 G/DL (6.4-8.2)
[2018-01-26] MEDS: calcium chloride 100 MG/1 ML inj IV PRN ×2 (02:59→09:56)
[2018-01-26 03:06] LABS: ABG BASE EXCESS -7.8 mmol/L (-2.0-3.0); ABG HCO3 16.5 mmol/L (22.0-26.0); ABG OXYGEN SATURATION 96.8 % (95-98); ABG PH (T) 7.384 (7.350-7.450); ABG PO2 (T) 93.4 mmHg (83-108); FCOHb 0.3 % (0.5-1.5); FMetHb 0.3 % (0.3-1.12); FO2Hb 96.2 % (94-100); MINUTE VOLUME 8 L/min; PATIENT TEMPERATURE 36.1; PEEP 5 cm H2O; RESPIRATORY RATE 14 b/min; RESPIRATORY RATE (OBSERVED) 15 b/min; TIDAL VOLUME 500 mL; TOTAL HEMOGLOBIN 9.1 G/dl (14.0-18.0)
[2018-01-26 05:05] LABS: OXYGEN SATURATION (MIXED VEN) 52.5 % (60-80); PO2 MIXED VENOUS (TEMP COR) 27.9 mmHg (35-46)
[2018-01-26 06:02] LABS: BASOPHILS # (AUTO) 0.1 X10'3 (0-0.2); BASOPHILS % (AUTO) 0.3 % (0-1); EOSINOPHILS # (AUTO) 0.1 X10'3 (0-0.9); EOSINOPHILS % (AUTO) 0.7 % (0-6); HEMATOCRIT 24.7 % (42.0-52.0); HEMOGLOBIN 8.4 g/dl (14.0-17.9); LYMPHOCYTES # (AUTO) 1.4 X10'3 (1.1-4.8); MEAN CORPUSCULAR HEMOGLOBIN 30.7 PG (27.0-31.0); MEAN CORPUSCULAR HGB CONC 33.9 % (33.0-36.5); MEAN CORPUSCULAR VOLUME 90.6 FL (78-98); MEAN PLATELET VOLUME 10.4 FL (7.4-10.4); MONOCYTES # (AUTO) 1.1 X10'3 (0-0.9); MONOCYTES % (AUTO) 5.4 % (2-12); NEUTROPHILS % (AUTO) 86.6 % (42-75); PLATELET COUNT 75 X10'3 (140-440); RED BLOOD COUNT 2.72 X10'6 (4.70-6.10); RED CELL DISTRIBUTION WIDTH 16.3 % (11.5-14.5); WHITE BLOOD COUNT 20.8 X10'3 (4.5-11.0)
[2018-01-26 06:26] LABS: ANION GAP 11 (8-16); CHLORIDE 101 MMOL/L (99-107); GLUCOSE 114 MG/DL (70-104); SODIUM 131 MMOL/L (135-145); TOTAL CARBON DIOXIDE 19.3 MMOL/L (24-32)
[2018-01-26 06:27] LABS: ALBUMIN 2.8 G/DL (3.4-5.0); BLOOD UREA NITROGEN 36 MG/DL (7-18); BUN/CREATININE RATIO 15.7 (5.4-32.0); CALCIUM 6.6 MG/DL (8.5-10.1); MAGNESIUM 2.3 MG/DL (1.5-2.4); eGFR 29 ML/MIN
[2018-01-26 06:37] LABS: PHOSPHORUS 3.7 MG/DL (2.3-4.5); POTASSIUM 5.1 MMOL/L (3.5-5.1)
[2018-01-26 07:07] LABS: BANDS% (MANUAL) 10 % (0-10); LYMPHOCYTES % (MANUAL) 7 % (21-51); MONOCYTES % (MANUAL) 2 % (2-12); NEUTROPHILS % (MANUAL) 77 % (42-75); TOTAL CELLS COUNTED 100
[2018-01-26 07:08] LABS: ANISOCYTOSIS 1+; METAMYLEOCYTES% (MANUAL) 3 % (0-0); MYELOCYTES % (MANUAL) 1 % (0-0); NUCLEATED RED BLOOD CELLS 2 /100WBC (0-0); PLATELET ESTIMATE DECREASED; POLYCHROMASIA 1+
[2018-01-26] MEDS: metoprolol tartrate 12.5mg (1/2 tablet) PO SCH ×2 (08:00→20:00)
[2018-01-26] MEDS: pantoprazole 40 MG vial IV SCH (08:30)
[2018-01-26] MEDS: aspirin 325mg tablet, delayed-release (Ecotrin) PO SCH (08:32)
[2018-01-26] MEDS: lactobacillus rhamnosus 10,000 MMU CELLS/CAPSULE PO SCH ×2 (08:32→20:00)
[2018-01-26] MEDS: docusate sodium 100mg/10ml UD cup PO SCH ×2 (08:32→20:00)
[2018-01-26] MEDS: atorvastatin 10mg tablet PO SCH (08:32)
[2018-01-26] MEDS: methylnaltrexone br 12mg/0.6ml inj***SubQ only SQ SCH (08:33)
[2018-01-26] MEDS: fondaparinux 2.5 MG/0.5 ML syringe SUBCUT SCH (09:06)
[2018-01-26] MEDS: morphine 4 MG/ML inj SYRINge IV PRN ×2 (10:43→15:59)
[2018-01-26] MEDS ORDERED: CALCIUM CHLORIDE IV PRN (12:25)
[2018-01-26] MEDS ORDERED: NS IV PRN (12:25)
[2018-01-26] MEDS ORDERED: heparin 1,000 units/ml 10ml inj HE ONE ×2 (13:30)
[2018-01-26 13:58] LABS: BASOPHILS # (AUTO) 0.1 X10'3 (0-0.2); BASOPHILS % (AUTO) 0.2 % (0-1); EOSINOPHILS # (AUTO) 0.2 X10'3 (0-0.9); EOSINOPHILS % (AUTO) 0.7 % (0-6); HEMATOCRIT 26.8 % (42.0-52.0); HEMOGLOBIN 9.1 g/dl (14.0-17.9); LYMPHOCYTES # (AUTO) 1.1 X10'3 (1.1-4.8); LYMPHOCYTES % (AUTO) 4.3 % (21-51); MEAN CORPUSCULAR HEMOGLOBIN 30.3 PG (27.0-31.0); MEAN CORPUSCULAR HGB CONC 34.1 % (33.0-36.5); MEAN CORPUSCULAR VOLUME 88.9 FL (78-98); MEAN PLATELET VOLUME 10.1 FL (7.4-10.4); MONOCYTES # (AUTO) 1.3 X10'3 (0-0.9); MONOCYTES % (AUTO) 5.2 % (2-12); NEUTROPHILS # (AUTO) 21.9 X10'3 (1.8-7.7); NEUTROPHILS % (AUTO) 89.6 % (42-75); PLATELET COUNT 77 X10'3 (140-440); RED BLOOD COUNT 3.02 X10'6 (4.70-6.10); RED CELL DISTRIBUTION WIDTH 16.1 % (11.5-14.5)
[2018-01-26 14:20] LABS: WHITE BLOOD COUNT 24.4 X10'3 (4.5-11.0)
[2018-01-26 14:25] LABS: NUCLEATED RED BLOOD CELLS 3 /100WBC (0-0); TOTAL CELLS COUNTED 100
[2018-01-26 14:26] LABS: ANISOCYTOSIS 1+; PLATELET ESTIMATE DECREASED; POLYCHROMASIA 2+; TOXIC GRANULATION 1+
[2018-01-26 19:54] LABS: BASOPHILS % (AUTO) 0.1 % (0-1); EOSINOPHILS # (AUTO) 0.3 X10'3 (0-0.9); EOSINOPHILS % (AUTO) 1.2 % (0-6); HEMATOCRIT 25.4 % (42.0-52.0); HEMOGLOBIN 8.7 g/dl (14.0-17.9); LYMPHOCYTES % (AUTO) 4.3 % (21-51); MEAN CORPUSCULAR HEMOGLOBIN 30.2 PG (27.0-31.0); MEAN CORPUSCULAR HGB CONC 34.3 % (33.0-36.5); MEAN CORPUSCULAR VOLUME 88.3 FL (78-98); MEAN PLATELET VOLUME 9.7 FL (7.4-10.4); MONOCYTES # (AUTO) 1.2 X10'3 (0-0.9); MONOCYTES % (AUTO) 5.2 % (2-12); NEUTROPHILS # (AUTO) 21.5 X10'3 (1.8-7.7); NEUTROPHILS % (AUTO) 89.2 % (42-75); PLATELET COUNT 81 X10'3 (140-440); RED BLOOD COUNT 2.88 X10'6 (4.70-6.10); RED CELL DISTRIBUTION WIDTH 15.7 % (11.5-14.5); WHITE BLOOD COUNT 24.1 X10'3 (4.5-11.0)
[2018-01-26] MEDS: piperacillin-tazo 2.25gm/50ml 50 ML IV SCH (20:27)
[2018-01-26 20:28] LABS: ANISOCYTOSIS 1+; NUCLEATED RED BLOOD CELLS 3 /100WBC (0-0); PLATELET ESTIMATE DECREASED; TOTAL CELLS COUNTED 100
[2018-01-27] VITALS (27 sets, daily range): BP systolic 118–148; BP diastolic 57–98
[2018-01-27 03:02] LABS: BASOPHILS % (AUTO) 0.1 % (0-1); EOSINOPHILS # (AUTO) 0.1 X10'3 (0-0.9); EOSINOPHILS % (AUTO) 0.5 % (0-6); HEMATOCRIT 22.7 % (42.0-52.0); HEMOGLOBIN 7.7 g/dl (14.0-17.9); LYMPHOCYTES # (AUTO) 1.8 X10'3 (1.1-4.8); LYMPHOCYTES % (AUTO) 7.5 % (21-51); MEAN CORPUSCULAR HEMOGLOBIN 30.2 PG (27.0-31.0); MEAN CORPUSCULAR HGB CONC 33.9 % (33.0-36.5); MEAN PLATELET VOLUME 9.9 FL (7.4-10.4); MONOCYTES # (AUTO) 1.3 X10'3 (0-0.9); MONOCYTES % (AUTO) 5.3 % (2-12); NEUTROPHILS # (AUTO) 21.2 X10'3 (1.8-7.7); NEUTROPHILS % (AUTO) 86.6 % (42-75); PLATELET COUNT 87 X10'3 (140-440); RED BLOOD COUNT 2.54 X10'6 (4.70-6.10); RED CELL DISTRIBUTION WIDTH 16.3 % (11.5-14.5); WHITE BLOOD COUNT 24.5 X10'3 (4.5-11.0)
[2018-01-27 03:13] LABS: INR 1.2 INR; PROTHROMBIN TIME 12.4 SECONDS (9.0-12.0)
[2018-01-27 04:08] LABS: ALANINE AMINOTRANSFERASE 239 U/L (12-78); ALBUMIN 2.5 G/DL (3.4-5.0); ALKALINE PHOSPHATASE 152 IU/L (46-116); ANION GAP 12 (8-16); ASPARTATE AMINO TRANSFERASE 201 U/L (10-37); BILIRUBIN,TOTAL 9.5 MG/DL (0.1-1.0); BLOOD UREA NITROGEN 58 MG/DL (7-18); BUN/CREATININE RATIO 15.1 (5.4-32.0); CALCIUM 7.2 MG/DL (8.5-10.1); CHLORIDE 101 MMOL/L (99-107); CREATININE 3.83 MG/DL (0.60-1.10); GLUCOSE 99 MG/DL (70-104); MAGNESIUM 2.3 MG/DL (1.5-2.4); SODIUM 131 MMOL/L (135-145); TOTAL CARBON DIOXIDE 17.9 MMOL/L (24-32); eGFR 16 ML/MIN
[2018-01-27 04:13] LABS: ALBUMIN/GLOBULIN RATIO 1.2 (1.1-1.5); PHOSPHORUS 3.9 MG/DL (2.3-4.5); POTASSIUM 4.5 MMOL/L (3.5-5.1); TOTAL PROTEIN 4.6 G/DL (6.4-8.2)
[2018-01-27] MEDS ORDERED: normal saline 1000ml 250 ML IV PRN (06:20)
[2018-01-27] MEDS ORDERED: normal saline 1000ml 100 ML IV PRN (06:20)
[2018-01-27] MEDS ORDERED: albumin (human) 25% 100ml IV 100 ML IV PRN (06:20)
[2018-01-27] MEDS ORDERED: epoetin 20,000 units/ml inj IV ONE (06:20)
[2018-01-27] MEDS ORDERED: heparin 1,000 units/ml 10ml inj HE ONE ×2 (06:25)
[2018-01-27] MEDS: pantoprazole 40 MG vial IV SCH (07:30)
[2018-01-27] MEDS: piperacillin-tazo 2.25gm/50ml 50 ML IV SCH ×2 (07:31→20:10)
[2018-01-27] MEDS: fondaparinux 2.5 MG/0.5 ML syringe SUBCUT SCH (07:31)
[2018-01-27] MEDS: aspirin 325mg tablet, delayed-release (Ecotrin) PO SCH (08:00)
[2018-01-27] MEDS: docusate sodium 100mg/10ml UD cup PO SCH ×2 (08:00→20:10)
[2018-01-27] MEDS: lactobacillus rhamnosus 10,000 MMU CELLS/CAPSULE PO SCH ×2 (08:00→20:10)
[2018-01-27] MEDS: atorvastatin 10mg tablet PO SCH (08:00)
[2018-01-27] MEDS: metoprolol tartrate 12.5mg (1/2 tablet) PO SCH ×2 (08:00→20:10)
[2018-01-27] MEDS: dexmedetomidin/NS 400mcg/100ml 100 ML IV SCH (10:19)
[2018-01-27] MEDS: sodium chloride 0.45% 1,000 ML IV SCH (19:13)
[2018-01-28] VITALS (24 sets, daily range): BP systolic 100–142; BP diastolic 67–99
[2018-01-28 05:33] LABS: BASOPHILS % (AUTO) 0.1 % (0-1); EOSINOPHILS # (AUTO) 0.2 X10'3 (0-0.9); EOSINOPHILS % (AUTO) 0.9 % (0-6); HEMATOCRIT 26.2 % (42.0-52.0); HEMOGLOBIN 8.9 g/dl (14.0-17.9); LYMPHOCYTES # (AUTO) 1.2 X10'3 (1.1-4.8); LYMPHOCYTES % (AUTO) 5.2 % (21-51); MEAN CORPUSCULAR HEMOGLOBIN 30.4 PG (27.0-31.0); MEAN CORPUSCULAR VOLUME 89.4 FL (78-98); MEAN PLATELET VOLUME 9.8 FL (7.4-10.4); MONOCYTES # (AUTO) 1.3 X10'3 (0-0.9); NEUTROPHILS # (AUTO) 19.8 X10'3 (1.8-7.7); NEUTROPHILS % (AUTO) 87.8 % (42-75); PLATELET COUNT 110 X10'3 (140-440); RED BLOOD COUNT 2.93 X10'6 (4.70-6.10); RED CELL DISTRIBUTION WIDTH 16.8 % (11.5-14.5); WHITE BLOOD COUNT 22.5 X10'3 (4.5-11.0)
[2018-01-28 05:42] LABS: INR 1.2 INR
[2018-01-28 05:52] LABS: ALANINE AMINOTRANSFERASE 242 U/L (12-78); ALBUMIN 2.5 G/DL (3.4-5.0); ALKALINE PHOSPHATASE 227 IU/L (46-116); ANION GAP 10 (8-16); ASPARTATE AMINO TRANSFERASE 215 U/L (10-37); BILIRUBIN,TOTAL 9.6 MG/DL (0.1-1.0); BLOOD UREA NITROGEN 55 MG/DL (7-18); BUN/CREATININE RATIO 13.2 (5.4-32.0); CALCIUM 7.7 MG/DL (8.5-10.1); CHLORIDE 98 MMOL/L (99-107); CREATININE 4.18 MG/DL (0.60-1.10); GLUCOSE 99 MG/DL (70-104); MAGNESIUM 2.3 MG/DL (1.5-2.4); PREALBUMIN 12.5 MG/DL (19-36); SODIUM 131 MMOL/L (135-145); TOTAL CARBON DIOXIDE 23.1 MMOL/L (24-32); eGFR 15 ML/MIN
[2018-01-28 06:00] LABS: PHOSPHORUS 4.2 MG/DL (2.3-4.5); POTASSIUM 4.5 MMOL/L (3.5-5.1)
[2018-01-28 07:21] LABS: BANDS% (MANUAL) 2 % (0-10); LYMPHOCYTES % (MANUAL) 3 % (21-51); METAMYLEOCYTES% (MANUAL) 4 % (0-0); MONOCYTES % (MANUAL) 4 % (2-12); NEUTROPHILS % (MANUAL) 87 % (42-75); TOTAL CELLS COUNTED 100
[2018-01-28 07:22] LABS: ANISOCYTOSIS 1+; BURR CELLS FEW; HYPOCHROMASIA 1+; NUCLEATED RED BLOOD CELLS 1 /100WBC (0-0); PLATELET ESTIMATE DECREASED; POLYCHROMASIA 1+; TARGET CELLS FEW
[2018-01-28 07:23] LABS: TOXIC GRANULATION 1+
[2018-01-28] MEDS: docusate sodium 100mg/10ml UD cup PO SCH ×2 (08:00→20:00)
[2018-01-28] MEDS: methylnaltrexone br 12mg/0.6ml inj***SubQ only SQ SCH (08:00)
[2018-01-28] MEDS: pantoprazole 40 MG vial IV SCH (08:02)
[2018-01-28] MEDS: piperacillin-tazo 2.25gm/50ml 50 ML IV SCH ×2 (08:02→20:46)
[2018-01-28] MEDS: fondaparinux 2.5 MG/0.5 ML syringe SUBCUT SCH (08:02)
[2018-01-28] MEDS: lactobacillus rhamnosus 10,000 MMU CELLS/CAPSULE PO SCH ×2 (08:03→20:47)
[2018-01-28] MEDS: atorvastatin 10mg tablet PO SCH (08:03)
[2018-01-28] MEDS: metoprolol tartrate 12.5mg (1/2 tablet) PO SCH ×2 (08:03→20:47)
[2018-01-28] MEDS: aspirin 325mg tablet, delayed-release (Ecotrin) PO SCH (08:03)
[2018-01-28] MEDS: DOBUTamine-DoBUTrex 500mg/D5W 250 ML IV SCH (11:28)
[2018-01-28] MEDS ORDERED: metoprolol tartrate 1mg/ml inj IV ONE ×3 (14:25→14:55)
[2018-01-28 15:56] LABS: ABG BASE EXCESS -6.9 mmol/L (-2.0-3.0); ABG HCO3 16.2 mmol/L (22.0-26.0); ABG OXYGEN SATURATION 92.5 % (95-98); ABG PCO2 (T) 24.5 mmHg (35.0-48.0); ABG PH (T) 7.437 (7.350-7.450); ABG PO2 (T) 68.8 mmHg (83-108); FCOHb 0.3 % (0.5-1.5); FLOW 2 L/min; FMetHb 0.1 % (0.3-1.12); FO2Hb 92.1 % (94-100); TOTAL HEMOGLOBIN 9.2 G/dl (14.0-18.0)
[2018-01-28] MEDS ORDERED: sodium bicarbonate (8.4%) inj. 150 MEQ in dextrose 5%-water 1,000 ML IV SCH ×2 (16:05→18:55)
[2018-01-28] MEDS ORDERED: adenosine 3mg/ml 2ml vial IV ONE ×2 (16:18→16:20)
[2018-01-28] MEDS ORDERED: amiodarone 150mg/dext, iso-os 100 ML IV ONE ×2 (16:29→16:30)
[2018-01-28] MEDS: amiodarone/D5 360MG/200ML BAG 200 ML IV SCH ×2 (16:44→22:39)
[2018-01-28] MEDS ORDERED: sodium bicarbonate (8.4%) 1 mEq/ml syringe IV ONE (18:55)
[2018-01-29] VITALS (29 sets, daily range): BP systolic 94–137; BP diastolic 55–92
[2018-01-29] MEDS: morphine 4 MG/ML inj SYRINge IV PRN ×3 (01:32→05:43)
[2018-01-29] MEDS: amiodarone/D5 360MG/200ML BAG 200 ML IV SCH ×4 (04:38→22:50)
[2018-01-29 06:30] LABS: BASOPHILS % (AUTO) 0 % (0-1); EOSINOPHILS # (AUTO) 0.4 X10'3 (0-0.9); EOSINOPHILS % (AUTO) 1.9 % (0-6); HEMATOCRIT 25.2 % (42.0-52.0); HEMOGLOBIN 8.7 g/dl (14.0-17.9); LYMPHOCYTES # (AUTO) 1.7 X10'3 (1.1-4.8); LYMPHOCYTES % (AUTO) 8.8 % (21-51); MEAN CORPUSCULAR HEMOGLOBIN 30.4 PG (27.0-31.0); MEAN CORPUSCULAR HGB CONC 34.3 % (33.0-36.5); MEAN CORPUSCULAR VOLUME 88.7 FL (78-98); MEAN PLATELET VOLUME 9.6 FL (7.4-10.4); MONOCYTES # (AUTO) 1.3 X10'3 (0-0.9); MONOCYTES % (AUTO) 6.6 % (2-12); NEUTROPHILS # (AUTO) 16.2 X10'3 (1.8-7.7); NEUTROPHILS % (AUTO) 82.7 % (42-75); PLATELET COUNT 161 X10'3 (140-440); RED BLOOD COUNT 2.85 X10'6 (4.70-6.10); RED CELL DISTRIBUTION WIDTH 16.7 % (11.5-14.5); WHITE BLOOD COUNT 19.6 X10'3 (4.5-11.0)
[2018-01-29 06:37] LABS: ALANINE AMINOTRANSFERASE 228 U/L (12-78); ALBUMIN 2.4 G/DL (3.4-5.0); ALKALINE PHOSPHATASE 299 IU/L (46-116); ANION GAP 15 (8-16); ASPARTATE AMINO TRANSFERASE 220 U/L (10-37); BILIRUBIN,TOTAL 7.3 MG/DL (0.1-1.0); BLOOD UREA NITROGEN 77 MG/DL (7-18); BUN/CREATININE RATIO 12.8 (5.4-32.0); CALCIUM 7.8 MG/DL (8.5-10.1); CHLORIDE 93 MMOL/L (99-107); CREATININE 6.02 MG/DL (0.60-1.10); GLUCOSE 113 MG/DL (70-104); MAGNESIUM 2.2 MG/DL (1.5-2.4); SODIUM 128 MMOL/L (135-145); TOTAL CARBON DIOXIDE 20.5 MMOL/L (24-32); eGFR 10 ML/MIN
[2018-01-29 06:38] LABS: ALBUMIN/GLOBULIN RATIO 0.9 (1.1-1.5); PHOSPHORUS 5.6 MG/DL (2.3-4.5); POTASSIUM 4.7 MMOL/L (3.5-5.1); TOTAL PROTEIN 5.2 G/DL (6.4-8.2)
[2018-01-29] MEDS: atorvastatin 10mg tablet PO SCH (07:45)
[2018-01-29] MEDS: lactobacillus rhamnosus 10,000 MMU CELLS/CAPSULE PO SCH ×2 (07:45→19:52)
[2018-01-29] MEDS: aspirin 325mg tablet, delayed-release (Ecotrin) PO SCH (07:45)
[2018-01-29] MEDS: metoprolol tartrate 12.5mg (1/2 tablet) PO SCH ×2 (07:45→19:52)
[2018-01-29] MEDS: piperacillin-tazo 2.25gm/50ml 50 ML IV SCH ×2 (07:46→19:52)
[2018-01-29] MEDS: LORazepam 2 mg/ml vial IV PRN (07:46)
[2018-01-29] MEDS: pantoprazole 40 MG vial IV SCH (07:46)
[2018-01-29] MEDS: docusate sodium 100mg/10ml UD cup PO SCH ×2 (07:46→19:53)
[2018-01-29] MEDS ORDERED: midazolam 2 mg/2 ml injection IV PRN (08:10)
[2018-01-29] MEDS ORDERED: heparin 1,000 units/ml 10ml inj ICATH ONE (08:10)
[2018-01-29] MEDS ORDERED: LIDOcaine 1%/PF 5ML 10 MG/ML VIAL SQ ONE (08:10)
[2018-01-29] MEDS ORDERED: fentaNYL/PF 50MCG/1 ML 2ML syringe IV PRN (08:10)
[2018-01-29] MEDS ORDERED: LIDOcaine 1%/PF 5ML 10 MG/ML VIAL ONE (08:12)
[2018-01-29] MEDS ORDERED: anticoagulant citrate dextrose (ACD) 1000ml solution IV ONE ×3 (09:10→12:10)
[2018-01-29 09:16] LABS: BANDS% (MANUAL) 1 % (0-10); LYMPHOCYTES % (MANUAL) 4 % (21-51); METAMYLEOCYTES% (MANUAL) 4 % (0-0); MONOCYTES % (MANUAL) 7 % (2-12); NEUTROPHILS % (MANUAL) 84 % (42-75); TOTAL CELLS COUNTED 100
[2018-01-29 09:17] LABS: ANISOCYTOSIS 1+; PLATELET ESTIMATE NORMAL; TARGET CELLS 2+
[2018-01-29] MEDS ORDERED: normal saline 1000ml 250 ML IV PRN (10:09)
[2018-01-29] MEDS ORDERED: epoetin 20,000 units/ml inj IV ONE (10:10)
[2018-01-29] MEDS ORDERED: albumin (human) 25% 100ml IV 100 ML IV PRN (10:10)
[2018-01-29] MEDS: sodium chloride 0.45% 1,000 ML IV SCH (19:52)
[2018-01-29] MEDS ORDERED: morphine 2 MG/ML inj. syringe IV PRN (21:34)
[2018-01-29] MEDS: DOBUTamine-DoBUTrex 500mg/D5W 250 ML IV SCH (22:04)
[2018-01-30] VITALS (11 sets, daily range): BP systolic 92–127; BP diastolic 58–86
[2018-01-30] MEDS: amiodarone/D5 360MG/200ML BAG 200 ML IV SCH (04:55)
[2018-01-30 06:40] LABS: BASOPHILS % (AUTO) 0.1 % (0-1); EOSINOPHILS # (AUTO) 0.4 X10'3 (0-0.9); EOSINOPHILS % (AUTO) 2.8 % (0-6); HEMATOCRIT 24.2 % (42.0-52.0); HEMOGLOBIN 8.2 g/dl (14.0-17.9); LYMPHOCYTES % (AUTO) 6.4 % (21-51); MEAN CORPUSCULAR HEMOGLOBIN 30.5 PG (27.0-31.0); MEAN CORPUSCULAR HGB CONC 33.7 % (33.0-36.5); MEAN CORPUSCULAR VOLUME 90.4 FL (78-98); MEAN PLATELET VOLUME 9.6 FL (7.4-10.4); MONOCYTES # (AUTO) 1.6 X10'3 (0-0.9); MONOCYTES % (AUTO) 9.8 % (2-12); NEUTROPHILS % (AUTO) 80.9 % (42-75); PLATELET COUNT 233 X10'3 (140-440); RED BLOOD COUNT 2.68 X10'6 (4.70-6.10); RED CELL DISTRIBUTION WIDTH 19.1 % (11.5-14.5); WHITE BLOOD COUNT 16.1 X10'3 (4.5-11.0)
[2018-01-30 07:16] LABS: ALANINE AMINOTRANSFERASE 213 U/L (12-78); ALBUMIN 2.3 G/DL (3.4-5.0); ALKALINE PHOSPHATASE 329 IU/L (46-116); ANION GAP 14 (8-16); ASPARTATE AMINO TRANSFERASE 189 U/L (10-37); BILIRUBIN,TOTAL 4.8 MG/DL (0.1-1.0); BLOOD UREA NITROGEN 58 MG/DL (7-18); BUN/CREATININE RATIO 10.5 (5.4-32.0); CALCIUM 7.9 MG/DL (8.5-10.1); CHLORIDE 94 MMOL/L (99-107); GLUCOSE 107 MG/DL (70-104); MAGNESIUM 2.1 MG/DL (1.5-2.4); POTASSIUM 4.6 MMOL/L (3.5-5.1); SODIUM 131 MMOL/L (135-145); TOTAL CARBON DIOXIDE 22.7 MMOL/L (24-32); eGFR 11 ML/MIN
[2018-01-30 07:41] LABS: ALBUMIN/GLOBULIN RATIO 0.7 (1.1-1.5); PHOSPHORUS 5.9 MG/DL (2.3-4.5); TOTAL PROTEIN 5.4 G/DL (6.4-8.2)
[2018-01-30] MEDS ORDERED: normal saline 1000ml 250 ML IV PRN (08:00)
[2018-01-30] MEDS ORDERED: epoetin 20,000 units/ml inj IV ONE (08:00)
[2018-01-30] MEDS ORDERED: albumin (human) 25% 100ml IV 100 ML IV PRN (08:00)
[2018-01-30] MEDS ORDERED: normal saline 1000ml 100 ML IV PRN (08:00)
[2018-01-30 08:06] LABS: ANISOCYTOSIS 2+; HYPOCHROMASIA 1+; PLATELET ESTIMATE NORMAL; POLYCHROMASIA 2+; TARGET CELLS 1+; TOTAL CELLS COUNTED 100; TOXIC GRANULATION 1+
[2018-01-30] MEDS: lactobacillus rhamnosus 10,000 MMU CELLS/CAPSULE PO SCH ×2 (08:25→20:00)
[2018-01-30] MEDS: docusate sodium 100mg/10ml UD cup PO SCH ×2 (08:25→20:00)
[2018-01-30] MEDS: aspirin 325mg tablet, delayed-release (Ecotrin) PO SCH (08:25)
[2018-01-30] MEDS: methylnaltrexone br 12mg/0.6ml inj***SubQ only SQ SCH (08:25)
[2018-01-30] MEDS: atorvastatin 10mg tablet PO SCH (08:25)
[2018-01-30] MEDS: metoprolol tartrate 12.5mg (1/2 tablet) PO SCH ×2 (08:25→20:00)
[2018-01-30] MEDS: pantoprazole 40 MG vial IV SCH (08:26)
[2018-01-30] MEDS: piperacillin-tazo 2.25gm/50ml 50 ML IV SCH ×2 (08:26→20:00)
[2018-01-30] MEDS: LORazepam 2 mg/ml vial IV PRN (13:25)
[2018-01-30] MEDS: HYDROcodone/acetaminophen 10/325mg tab PO PRN (15:08)
[2018-01-30] MEDS: amiodarone 200mg tablet PO SCH (20:00)
[2018-01-31] MEDS: lactobacillus rhamnosus 10,000 MMU CELLS/CAPSULE PO SCH ×2 (08:00→19:35)
[2018-01-31] MEDS: piperacillin-tazo 2.25gm/50ml 50 ML IV SCH ×2 (08:00→19:35)
[2018-01-31] MEDS: atorvastatin 10mg tablet PO SCH ×2 (08:00→19:45)
[2018-01-31] MEDS: pantoprazole 40 MG vial IV SCH ×2 (08:00→19:46)
[2018-01-31] MEDS: docusate sodium 100mg/10ml UD cup PO SCH ×3 (08:00→19:47)
[2018-01-31] MEDS: aspirin 81mg tablet.DR PO SCH ×2 (08:00→19:46)
[2018-01-31] MEDS: metoprolol tartrate 12.5mg (1/2 tablet) PO SCH ×2 (08:00→19:36)
[2018-01-31] MEDS: amiodarone 200mg tablet PO SCH ×2 (08:00→19:36)
[2018-01-31] MEDS: DOBUTamine-DoBUTrex 500mg/D5W 250 ML IV SCH (08:56)
[2018-01-31] MEDS: lactose-reduced food (Ensure High Protein) 237ml bottle PO SCH (18:00)
[2018-01-31 19:00] VITALS: BP 120/105
[2018-01-31] MEDS: sodium chloride 0.45% 1,000 ML IV SCH (19:13)
[2018-01-31 20:00] VITALS: BP 130/92
[2018-01-31 20:10] LABS: HEMATOCRIT 25.4 % (42.0-52.0); HEMOGLOBIN 8.5 g/dl (14.0-17.9); MEAN CORPUSCULAR HEMOGLOBIN 30.2 PG (27.0-31.0); MEAN CORPUSCULAR HGB CONC 33.5 % (33.0-36.5); MEAN CORPUSCULAR VOLUME 90.3 FL (78-98); RED BLOOD COUNT 2.82 X10'6 (4.70-6.10); RED CELL DISTRIBUTION WIDTH 20.4 % (11.5-14.5); WHITE BLOOD COUNT 16.5 X10'3 (4.5-11.0)
[2018-01-31 20:11] LABS: BASOPHILS % (AUTO) 0 % (0-1); EOSINOPHILS # (AUTO) 0.4 X10'3 (0-0.9); EOSINOPHILS % (AUTO) 2.7 % (0-6); LYMPHOCYTES # (AUTO) 0.9 X10'3 (1.1-4.8); LYMPHOCYTES % (AUTO) 5.8 % (21-51); MEAN PLATELET VOLUME 8.8 FL (7.4-10.4); MONOCYTES # (AUTO) 1.1 X10'3 (0-0.9); MONOCYTES % (AUTO) 6.4 % (2-12); NEUTROPHILS % (AUTO) 85.1 % (42-75); PLATELET COUNT 350 X10'3 (140-440)
[2018-01-31 20:22] LABS: INR 1.2 INR; PARTIAL THROMBOPLASTIN TIME 28 SECONDS (22-32); PROTHROMBIN TIME 12.6 SECONDS (9.0-12.0)
[2018-01-31 20:37] LABS: ALANINE AMINOTRANSFERASE 163 U/L (12-78); ALBUMIN 2.2 G/DL (3.4-5.0); ALBUMIN/GLOBULIN RATIO 0.6 (1.1-1.5); ALKALINE PHOSPHATASE 282 IU/L (46-116); ANION GAP 13 (8-16); ASPARTATE AMINO TRANSFERASE 121 U/L (10-37); BILIRUBIN,TOTAL 3.3 MG/DL (0.1-1.0); BLOOD UREA NITROGEN 85 MG/DL (7-18); CALCIUM 8.5 MG/DL (8.5-10.1); CHLORIDE 93 MMOL/L (99-107); GLUCOSE 117 MG/DL (70-104); MAGNESIUM 2.1 MG/DL (1.5-2.4); PHOSPHORUS 8.3 MG/DL (2.3-4.5); POTASSIUM 5.3 MMOL/L (3.5-5.1); SODIUM 128 MMOL/L (135-145); TOTAL CARBON DIOXIDE 22.3 MMOL/L (24-32); TOTAL PROTEIN 5.6 G/DL (6.4-8.2); eGFR 7 ML/MIN
[2018-01-31 21:00] VITALS: BP 113/98
[2018-01-31 22:00] VITALS: BP 152/96
[2018-01-31 23:00] VITALS: BP 101/83
[2018-02-01] VITALS (24 sets, daily range): BP systolic 76–151; BP diastolic 50–101
[2018-02-01] MEDS: LORazepam 2 mg/ml vial IV PRN (00:57)
[2018-02-01 01:09] LABS: PLATELET ESTIMATE NORMAL
[2018-02-01] MEDS: HYDROcodone/acetaminophen 10/325mg tab PO PRN ×3 (01:09→14:53)
[2018-02-01 01:10] LABS: ANISOCYTOSIS 2+; TARGET CELLS 2+
[2018-02-01 01:14] LABS: POLYCHROMASIA FEW
[2018-02-01] MEDS ORDERED: albumin (human) 25% 100ml IV 100 ML IV PRN (07:55)
[2018-02-01] MEDS ORDERED: heparin 1,000 units/ml 10ml inj IV ONE (07:55)
[2018-02-01] MEDS ORDERED: epoetin 20,000 units/ml inj IV ONE (07:55)
[2018-02-01] MEDS ORDERED: heparin 1,000unit/ml 10ml vial 10 ML IV ONE (07:55)
[2018-02-01] MEDS ORDERED: amiodarone 200mg tablet PO ONE (08:00)
[2018-02-01] MEDS ORDERED: heparin 1,000 units/ml 10ml inj HE ONE ×2 (08:00)
[2018-02-01] MEDS: methylnaltrexone br 12mg/0.6ml inj***SubQ only SQ SCH (08:00)
[2018-02-01] MEDS: lactose-reduced food (Ensure High Protein) 237ml bottle PO SCH ×3 (08:00→18:00)
[2018-02-01] MEDS: docusate sodium 100mg/10ml UD cup PO SCH (08:00)
[2018-02-01] MEDS: amiodarone 200mg tablet PO SCH (08:00)
[2018-02-01] MEDS: metoprolol tartrate 12.5mg (1/2 tablet) PO SCH ×2 (08:35→20:00)
[2018-02-01] MEDS: lactobacillus rhamnosus 10,000 MMU CELLS/CAPSULE PO SCH ×2 (08:36→20:17)
[2018-02-01] MEDS: aspirin 81mg tablet.DR PO SCH (08:36)
[2018-02-01] MEDS: atorvastatin 10mg tablet PO SCH (08:36)
[2018-02-01] MEDS: piperacillin-tazo 2.25gm/50ml 50 ML IV SCH ×2 (08:40→20:17)
[2018-02-01] MEDS ORDERED: anticoagulant citrate dextrose (ACD) 1000ml solution HE ONE ×2 (11:15)
[2018-02-01] MEDS: amiodarone/D5 360MG/200ML BAG 200 ML IV SCH ×3 (11:18→22:00)
[2018-02-01] MEDS: famotidine 20mg tablet PO SCH (20:17)
[2018-02-01] MEDS: docusate sod 100mg capsule PO SCH (20:17)
[2018-02-01] MEDS ORDERED: NORepinephrine 8mg/ 250ml NS 250 ML IV PRN (20:44)
[2018-02-01] MEDS: OXAZEpam 10mg capsule PO PRN (22:01)
[2018-02-02] VITALS (23 sets, daily range): BP systolic 102–136; BP diastolic 68–101
[2018-02-02 04:26] LABS: BASOPHILS # (AUTO) 0.1 X10'3 (0-0.2); BASOPHILS % (AUTO) 0.4 % (0-1); EOSINOPHILS # (AUTO) 0.3 X10'3 (0-0.9); EOSINOPHILS % (AUTO) 2.7 % (0-6); HEMATOCRIT 24.3 % (42.0-52.0); LYMPHOCYTES # (AUTO) 1.1 X10'3 (1.1-4.8); MEAN CORPUSCULAR HEMOGLOBIN 30.2 PG (27.0-31.0); MEAN CORPUSCULAR HGB CONC 33.1 % (33.0-36.5); MEAN CORPUSCULAR VOLUME 91.3 FL (78-98); MEAN PLATELET VOLUME 8.6 FL (7.4-10.4); MONOCYTES % (AUTO) 7.9 % (2-12); NEUTROPHILS # (AUTO) 9.8 X10'3 (1.8-7.7); PLATELET COUNT 334 X10'3 (140-440); RED BLOOD COUNT 2.66 X10'6 (4.70-6.10); RED CELL DISTRIBUTION WIDTH 20.8 % (11.5-14.5); WHITE BLOOD COUNT 12.3 X10'3 (4.5-11.0)
[2018-02-02 04:32] LABS: ALANINE AMINOTRANSFERASE 134 U/L (12-78); ALBUMIN 2.2 G/DL (3.4-5.0); ALBUMIN/GLOBULIN RATIO 0.6 (1.1-1.5); ALKALINE PHOSPHATASE 217 IU/L (46-116); ANION GAP 13 (8-16); ASPARTATE AMINO TRANSFERASE 92 U/L (10-37); BILIRUBIN,TOTAL 2.7 MG/DL (0.1-1.0); BLOOD UREA NITROGEN 55 MG/DL (7-18); BUN/CREATININE RATIO 9.3 (5.4-32.0); CHLORIDE 95 MMOL/L (99-107); CREATININE 5.92 MG/DL (0.60-1.10); GLUCOSE 99 MG/DL (70-104); MAGNESIUM 1.9 MG/DL (1.5-2.4); PHOSPHORUS 7.1 MG/DL (2.3-4.5); POTASSIUM 4.5 MMOL/L (3.5-5.1); SODIUM 133 MMOL/L (135-145); TOTAL PROTEIN 5.8 G/DL (6.4-8.2); eGFR 10 ML/MIN
[2018-02-02 04:56] LABS: ANISOCYTOSIS 3+; HYPOCHROMASIA 1+; PLATELET ESTIMATE NORMAL; POLYCHROMASIA 1+; TARGET CELLS 1+
[2018-02-02] MEDS: amiodarone/D5 360MG/200ML BAG 200 ML IV SCH ×4 (05:27→21:38)
[2018-02-02] MEDS: OXAZEpam 10mg capsule PO PRN ×2 (06:48→17:26)
[2018-02-02] MEDS: metoprolol tartrate 12.5mg (1/2 tablet) PO SCH ×2 (07:50→19:47)
[2018-02-02] MEDS: docusate sod 100mg capsule PO SCH ×2 (07:50→20:00)
[2018-02-02] MEDS: piperacillin-tazo 2.25gm/50ml 50 ML IV SCH ×2 (07:50→19:47)
[2018-02-02] MEDS: famotidine 20mg tablet PO SCH ×2 (07:50→19:47)
[2018-02-02] MEDS: lactobacillus rhamnosus 10,000 MMU CELLS/CAPSULE PO SCH ×2 (07:50→19:47)
[2018-02-02] MEDS: lactose-reduced food (Ensure High Protein) 237ml bottle PO SCH ×4 (08:00→18:04)
[2018-02-02] MEDS: sodium chloride 0.45% 1,000 ML IV SCH (19:13)
[2018-02-02] MEDS: HYDROcodone/acetaminophen 10/325mg tab PO PRN (20:20)
[2018-02-03] VITALS (7 sets, daily range): BP systolic 122–140; BP diastolic 83–99
[2018-02-03] MEDS: OXAZEpam 10mg capsule PO PRN ×2 (01:06→10:29)
[2018-02-03] MEDS: HYDROcodone/acetaminophen 10/325mg tab PO PRN ×2 (02:34→21:15)
[2018-02-03] MEDS: amiodarone/D5 360MG/200ML BAG 200 ML IV SCH ×4 (05:43→23:55)
[2018-02-03 05:51] LABS: BASOPHILS # (AUTO) 0.1 X10'3 (0-0.2); BASOPHILS % (AUTO) 0.9 % (0-1); EOSINOPHILS # (AUTO) 0.3 X10'3 (0-0.9); EOSINOPHILS % (AUTO) 2.6 % (0-6); HEMATOCRIT 23.3 % (42.0-52.0); HEMOGLOBIN 7.9 g/dl (14.0-17.9); LYMPHOCYTES # (AUTO) 1.2 X10'3 (1.1-4.8); LYMPHOCYTES % (AUTO) 9.3 % (21-51); MEAN CORPUSCULAR HEMOGLOBIN 30.8 PG (27.0-31.0); MEAN CORPUSCULAR HGB CONC 34.1 % (33.0-36.5); MEAN CORPUSCULAR VOLUME 90.5 FL (78-98); MEAN PLATELET VOLUME 8.8 FL (7.4-10.4); MONOCYTES % (AUTO) 7.6 % (2-12); NEUTROPHILS # (AUTO) 10.4 X10'3 (1.8-7.7); NEUTROPHILS % (AUTO) 79.6 % (42-75); PLATELET COUNT 356 X10'3 (140-440); RED BLOOD COUNT 2.58 X10'6 (4.70-6.10); RED CELL DISTRIBUTION WIDTH 21.1 % (11.5-14.5); WHITE BLOOD COUNT 13.1 X10'3 (4.5-11.0)
[2018-02-03 06:02] LABS: ALBUMIN 2.2 G/DL (3.4-5.0); ANION GAP 18 (8-16); BLOOD UREA NITROGEN 72 MG/DL (7-18); BUN/CREATININE RATIO 9.9 (5.4-32.0); CALCIUM 8.4 MG/DL (8.5-10.1); CHLORIDE 94 MMOL/L (99-107); CREATININE 7.26 MG/DL (0.60-1.10); GLUCOSE 112 MG/DL (70-104); POTASSIUM 4.4 MMOL/L (3.5-5.1); SODIUM 133 MMOL/L (135-145); TOTAL CARBON DIOXIDE 21.1 MMOL/L (24-32); eGFR 8 ML/MIN
[2018-02-03] MEDS ORDERED: heparin 1,000unit/ml 10ml vial 10 ML IV ONE (06:12)
[2018-02-03] MEDS ORDERED: albumin (human) 25% 100ml IV 100 ML IV PRN (06:15)
[2018-02-03] MEDS ORDERED: epoetin 20,000 units/ml inj IV ONE (06:15)
[2018-02-03] MEDS ORDERED: heparin 1,000 units/ml 10ml inj IV ONE (06:15)
[2018-02-03 06:59] LABS: ANISOCYTOSIS 3+; PLATELET ESTIMATE NORMAL
[2018-02-03 07:01] LABS: MICROCYTOSIS 1+
[2018-02-03] MEDS: piperacillin-tazo 2.25gm/50ml 50 ML IV SCH ×2 (07:51→21:06)
[2018-02-03] MEDS: docusate sod 100mg capsule PO SCH ×2 (07:54→20:51)
[2018-02-03] MEDS: aspirin 81mg tablet.DR PO SCH (07:54)
[2018-02-03] MEDS: atorvastatin 10mg tablet PO SCH (07:54)
[2018-02-03] MEDS: metoprolol tartrate 12.5mg (1/2 tablet) PO SCH ×2 (07:54→20:50)
[2018-02-03] MEDS: lactobacillus rhamnosus 10,000 MMU CELLS/CAPSULE PO SCH ×2 (07:54→20:51)
[2018-02-03] MEDS: famotidine 20mg tablet PO SCH ×2 (07:55→20:50)
[2018-02-03] MEDS: methylnaltrexone br 12mg/0.6ml inj***SubQ only SQ SCH (07:58)
[2018-02-03] MEDS: lactose-reduced food (Ensure High Protein) 237ml bottle PO SCH ×3 (08:02→18:00)
[2018-02-03] MEDS ORDERED: heparin 1,000 units/ml 10ml inj HE ONE ×2 (08:20)
[2018-02-03] MEDS ORDERED: LORazepam 2 mg/ml vial IM ONE (11:50)
[2018-02-04 02:00] VITALS: BP 102/65
[2018-02-04] MEDS: HYDROcodone/acetaminophen 10/325mg tab PO PRN ×2 (03:26→15:08)
[2018-02-04] MEDS: amiodarone/D5 360MG/200ML BAG 200 ML IV SCH ×3 (05:59→12:58)
[2018-02-04 06:46] VITALS: BP 106/70
[2018-02-04] MEDS: metoprolol tartrate 12.5mg (1/2 tablet) PO SCH ×2 (07:33→20:00)
[2018-02-04] MEDS: aspirin 81mg tablet.DR PO SCH (07:33)
[2018-02-04] MEDS: piperacillin-tazo 2.25gm/50ml 50 ML IV SCH ×2 (07:33→21:14)
[2018-02-04] MEDS: famotidine 20mg tablet PO SCH ×2 (07:33→20:00)
[2018-02-04] MEDS: docusate sod 100mg capsule PO SCH ×2 (07:33→20:00)
[2018-02-04] MEDS: atorvastatin 10mg tablet PO SCH (07:33)
[2018-02-04] MEDS: lactobacillus rhamnosus 10,000 MMU CELLS/CAPSULE PO SCH ×2 (07:33→20:00)
[2018-02-04] MEDS: acetaminophen 325mg tablet PO PRN (07:34)
[2018-02-04] MEDS: lactose-reduced food (Ensure High Protein) 237ml bottle PO SCH ×3 (08:30→18:00)
[2018-02-04 11:00] VITALS: BP 115/82
[2018-02-04] MEDS ORDERED: normal saline 1000ml 250 ML IV PRN (14:44)
[2018-02-04] MEDS ORDERED: heparin 1,000 units/ml 10ml inj HE ONE ×3 (14:50→22:00)
[2018-02-04 15:00] VITALS: BP 127/89
[2018-02-04 17:52] LABS: ALANINE AMINOTRANSFERASE 85 U/L (12-78); ALBUMIN 2.2 G/DL (3.4-5.0); ALBUMIN/GLOBULIN RATIO 0.6 (1.1-1.5); ALKALINE PHOSPHATASE 172 IU/L (46-116); ASPARTATE AMINO TRANSFERASE 58 U/L (10-37); BILIRUBIN,DIRECT 1.7 MG/DL (0-0.3); BILIRUBIN,TOTAL 1.9 MG/DL (0.1-1.0); TOTAL PROTEIN 5.8 G/DL (6.4-8.2)
[2018-02-04 18:00] VITALS: BP 109/81
[2018-02-04] MEDS: amiodarone 200mg tablet PO SCH ×2 (20:00)
[2018-02-04] MEDS ORDERED: heparin sodium, porcine/PF 100unit/ml 5ML syringe IV ONE (21:40)
[2018-02-04 22:00] VITALS: BP 113/86
[2018-02-04] MEDS: OXAZEpam 10mg capsule PO PRN (23:17)
[2018-02-05] MEDS: HYDROcodone/acetaminophen 10/325mg tab PO PRN ×2 (00:53→10:51)
[2018-02-05 02:00] VITALS: BP 108/81
[2018-02-05 06:00] VITALS: BP 118/85
[2018-02-05] MEDS: piperacillin-tazo 2.25gm/50ml 50 ML IV SCH ×2 (08:00→21:03)
[2018-02-05] MEDS: lactobacillus rhamnosus 10,000 MMU CELLS/CAPSULE PO SCH ×2 (08:00→20:54)
[2018-02-05] MEDS: amiodarone 200mg tablet PO SCH ×4 (08:00→20:54)
[2018-02-05] MEDS: aspirin 81mg tablet.DR PO SCH (08:00)
[2018-02-05] MEDS: famotidine 20mg tablet PO SCH ×2 (08:00→20:54)
[2018-02-05] MEDS: atorvastatin 10mg tablet PO SCH (08:01)
[2018-02-05] MEDS: methylnaltrexone br 12mg/0.6ml inj***SubQ only SQ SCH (08:01)
[2018-02-05] MEDS: docusate sod 100mg capsule PO SCH ×2 (08:01→20:54)
[2018-02-05] MEDS: metoprolol tartrate 12.5mg (1/2 tablet) PO SCH ×2 (08:01→20:54)
[2018-02-05] MEDS: lactose-reduced food (Ensure High Protein) 237ml bottle PO SCH ×2 (08:06→13:35)
[2018-02-05] MEDS: acetaminophen 325mg tablet PO PRN ×2 (16:45→23:07)
[2018-02-05] MEDS: OXAZEpam 10mg capsule PO PRN (17:13)
[2018-02-05 17:21] VITALS: BP 120/80
== END 2018-02-05 23:40 | disposition left against medical advice (07) | DRG 710 ==
LOC: ER 07:40 → ED HOLD 09:42 → CICU 2S 11:21 → PCU 3S 02-02 21:23
PROVIDERS: ADMIT Internal Medicine; ATTEND Thoracic Surgery (Cardiothoracic Vascular Surgery)
PROC: 02100Z9 Bypass Coronary Artery, One Artery from Left Internal Mammary, Open Approach (ICD-10-PCS; 2018-01-17)
PROC: 5A1955Z Respiratory Ventilation, Greater than 96 Consecutive Hours (ICD-10-PCS; 2018-01-17)
PROC: 4A023N7 Measurement of Cardiac Sampling and Pressure, Left Heart, Percutaneous Approach (ICD-10-PCS; 2018-01-17)
PROC: B2111ZZ Fluoroscopy of Multiple Coronary Arteries using Low Osmolar Contrast (ICD-10-PCS; 2018-01-17)
PROC: B2151ZZ Fluoroscopy of Left Heart using Low Osmolar Contrast (ICD-10-PCS; 2018-01-17)
PROC: 5A02210 Assistance with Cardiac Output using Balloon Pump, Continuous (ICD-10-PCS; 2018-01-17)
PROC: 0210093 Bypass Coronary Artery, One Artery from Coronary Artery with Autologous Venous Tissue, Open Approach (ICD-10-PCS; principal; 2018-01-17 12:10)
PROC: 5A1D90Z Performance of Urinary Filtration, Continuous, Greater than 18 hours Per Day (ICD-10-PCS; 2018-01-18)
PROC: 06HN33Z Insertion of Infusion Device into Left Femoral Vein, Percutaneous Approach (ICD-10-PCS; 2018-01-18)
PROC: 30233N1 Transfusion of Nonautologous Red Blood Cells into Peripheral Vein, Percutaneous Approach (ICD-10-PCS; 2018-01-18)
PROC: 30233R1 Transfusion of Nonautologous Platelets into Peripheral Vein, Percutaneous Approach (ICD-10-PCS; 2018-01-20)
PROC: 30233N1 Transfusion of Nonautologous Red Blood Cells into Peripheral Vein, Percutaneous Approach (ICD-10-PCS; 2018-01-21)
PROC: 04CR0ZZ Extirpation of Matter from Right Posterior Tibial Artery, Open Approach (ICD-10-PCS; 2018-01-22)
PROC: 30233N1 Transfusion of Nonautologous Red Blood Cells into Peripheral Vein, Percutaneous Approach (ICD-10-PCS; 2018-01-23)
PROC: 30233N1 Transfusion of Nonautologous Red Blood Cells into Peripheral Vein, Percutaneous Approach (ICD-10-PCS; 2018-01-25)
PROC: 30233N1 Transfusion of Nonautologous Red Blood Cells into Peripheral Vein, Percutaneous Approach (ICD-10-PCS; 2018-01-26)
PROC: 5A1D70Z Performance of Urinary Filtration, Intermittent, Less than 6 Hours Per Day (ICD-10-PCS; 2018-01-27)
PROC: 30233N1 Transfusion of Nonautologous Red Blood Cells into Peripheral Vein, Percutaneous Approach (ICD-10-PCS; 2018-01-27)
PROC: 0JH63XZ Insertion of Tunneled Vascular Access Device into Chest Subcutaneous Tissue and Fascia, Percutaneous Approach (ICD-10-PCS; 2018-01-29)
PROC: 02H633Z Insertion of Infusion Device into Right Atrium, Percutaneous Approach (ICD-10-PCS; 2018-01-29)
PROC: B244ZZZ Ultrasonography of Right Heart (ICD-10-PCS; 2018-01-29)
PROC: 5A1D70Z Performance of Urinary Filtration, Intermittent, Less than 6 Hours Per Day (ICD-10-PCS; 2018-01-29)
PROC: 5A1D70Z Performance of Urinary Filtration, Intermittent, Less than 6 Hours Per Day (ICD-10-PCS; 2018-02-01)
PROC: 5A1D70Z Performance of Urinary Filtration, Intermittent, Less than 6 Hours Per Day (ICD-10-PCS; 2018-02-03)
PROC: 5A1D70Z Performance of Urinary Filtration, Intermittent, Less than 6 Hours Per Day (ICD-10-PCS; 2018-02-04)
DX: A41.9 Sepsis, unspecified organism (principal); I21.4 Non-ST elevation (NSTEMI) myocardial infarction; J96.00 Acute respiratory failure, unspecified whether with hypoxia or hypercapnia; R65.21 Severe sepsis with septic shock; K72.00 Acute and subacute hepatic failure without coma; R57.0 Cardiogenic shock; Z99.11 Dependence on respirator [ventilator] status; J90 Pleural effusion, not elsewhere classified; I74.3 Embolism and thrombosis of arteries of the lower extremities; D69.6 Thrombocytopenia, unspecified; E87.1 Hypo-osmolality and hyponatremia; E87.2 Acidosis; K80.00 Calculus of gallbladder with acute cholecystitis without obstruction; N17.9 Acute kidney failure, unspecified; F17.210 Nicotine dependence, cigarettes, uncomplicated; I25.110 Atherosclerotic heart disease of native coronary artery with unstable angina pectoris; E87.5 Hyperkalemia; F10.10 Alcohol abuse, uncomplicated; I07.1 Rheumatic tricuspid insufficiency; I25.2 Old myocardial infarction; I31.3 Pericardial effusion (noninflammatory); I47.1 Supraventricular tachycardia; I49.3 Ventricular premature depolarization; K76.0 Fatty (change of) liver, not elsewhere classified; I99.8 Other disorder of circulatory system; Z53.21 Procedure and treatment not carried out due to patient leaving prior to being seen by health care provider; Z85.71 Personal history of Hodgkin lymphoma; Z85.72 Personal history of non-Hodgkin lymphomas; Z91.14 Patient's other noncompliance with medication regimen; Z91.15 Patient's noncompliance with renal dialysis; Z95.1 Presence of aortocoronary bypass graft; Z95.5 Presence of coronary angioplasty implant and graft; Z99.2 Dependence on renal dialysis
CPT/HCPCS: 0232T; 33967; 36245; 36415; 36558; 36600; 71045; 71250; 71275; 72191; 74175; 75710; 76700; 76705; 76937; 77001; 80048; 80053; 80069; 80074; 80076; 80202; 82150; 82247; 82248; 82330; 82435; 82533; 82550; 82803; 82810; 82945; 82947; 82948; 83605; 83615; 83690; 83735; 84075; 84100; 84132; 84134; 84145; 84157; 84295; 84439; 84443; 84450; 84460; 84484; 85018; 85025; 85027; 85347; 85379; 85384; 85610; 85730; 86022; 86430; 86703; 86885; 86900; 86901; 86920; 87040; 87070; 87075; 87077; 87102; 87186; 89051; 90935; 92616; 93005; 93308; 93312; 93325; 93458; 93922; 93926; 93931; 94002; 94003; 94760; 96365; 96375; 97110; 97116; 97162; 97530; 99285; A4620; A4649; A6212; A6213; A6222; A6251; A6253; A6257; A6258; A6446; A6449; A7000; A7048; A9270; C1725; C1750; C1751; C1757; C1769; C1894; C9113; C9606; C9607; G0257; J0153; J0282; J0360; J0690; J0696; J0883; J0885; J1250; J1265; J1642; J1644; J1652; J1815; J2001; J2060; J2150; J2250; J2270; J2370; J2405; J2440; J2543; J2704; J2720; J2765; J3010; J3246; J3370; J3475; J3480; J3490; J7030; J7120; P9016; P9035; P9045; P9047; Q9967